=== PATIENT | female | born 1950 | race Caucasian/White ===

== ENCOUNTER 2016-03-18 14:55 | Inpatient (IN) | payer OTHER ==
[~2016-03-18] VITALS: Ht 152.4 cm; Wt 168.7 kg
[~2016-03-18 14:55] MED LIST: ALPRAZOLAM0.5 M4 PO; BABY ASPIRIN CH81 MG PO; CEPHALEXIN500 M3 PO; DILTIAZEM ER120 M2 PO; ELIQUIS5 M1 PO; FUROSEMIDE10 MG/1 M1 IV; FUROSEMIDE20 MG PO; HYDROCODON-ACE1 EAC1 PO; LASIX80 M1 PO; LASIX80 MG PO; LOPRESSOR 12.12.5 MG PO; METOLAZONE2.5 M1 PO; METOPROLOL TART50 M1 PO; MYCOSTATIN POWD15 GM TOP; POTASSIUM CHLO20 ME2 PO; PREDNISONE20 M1 PO; SENNA-TIME S T1 EACH PO; SPIRIVA1 PUF INH; SULFAMETH/TRIME1 TA2 PO; TUDORZA PRESS400 MCG INH; VENTOLIN1 PUF INH
--- NOTE | 2016-03-18 15:09 | ED DYSPNEA/ASTHMA COMPLAINT ---
History of Present Illness General Chief Complaint: Dyspnea (COPD, CHF, Other) Stated Complaint: SOB Source: patient, old records Exam Limitations: no limitations Vital Signs & Intake/Output Vital Signs & Intake/Output Vital Signs Date Time Temp Pulse Resp B/P Pulse O2 O2 Flow FiO2 Ox Delivery Rate 03/18 1716 98.6 100 20 163/78 96 Nasal 2.0L Cannula 03/18 1602 97 Nasal 2.0L Cannula 03/18 1547 98 Nasal 2.0L Cannula 03/18 1502 119 26 147/79 97 Nasal 3.5L Cannula 03/18 1457 98.1 112 22 136/101 96 Nasal 4.0L Cannula Allergies Coded Allergies: lisinopril (ABDOMINAL CRAMPING 01/25/16) oxycodone (From Percocet) (NAUSEA 01/25/16) Reconcile Medications Aclidinium Moody (Tudorza Pressair) 400 MCG/ACTUATION AER.POW.BA 1 PUFF INH BID COPD (Reported) Albuterol Sulfate (Ventolin) 1 UNIT PUF 2 PUF INH Q4 PRN WHEEZING Alprazolam 0.5 MG TABLET 1 TAB PO TIDPRN ANXIETY (Reported) Apixaban (Eliquis) 5 MG TABLET 5 MG PO BID afib Diltiazem Cd (Diltiazem ER) 120 MG CAP.ER.DEG 120 MG PO DAILY afib Furosemide 10 MG/ML VIAL 8 ML IV DAILY PRN Fluid retention Please give PRN ONLY for excessive weight gain from fluid retention or reduced O2 saturation. Clarify with commodity manager Dr. Hernadez before giving dose. Furosemide (Lasix) 80 MG TABLET 1 TAB PO BID heart Hydrocodone/Acetaminophen (Hydrocodon-Acetaminophn 10-325) 10 MG-325 MG TABLET 1 TAB PO TIDPRN PAIN (Reported) Metolazone 2.5 MG TABLET 1 TAB PO DAILY DIURETIC (Reported) Metoprolol Tartrate 50 MG TABLET 100 MG PO BID afib Potassium Chloride 20 MEQ TAB.ER.PRT 1 TAB PO BID SUPPLEMENT (Reported) Prednisone 20 MG TABLET 1 TAB PO BID RASH (Reported) Triage Nurses Notes Reviewed? yes Onset: Gradual Duration: day(s): (5) Timing: recent history Severity: severe Activities at Onset: none Prior Episodes/Possible Cause: occasional episodes Modifying Factors: Improves With: immobilization. HPI: Patient is a 65-year-old female with history of CHF, COPD, hypertension presenting to the emergency department with chief complaint of increasing shortness of breath at the getting worse the past 5 days. She was recently discharged from the hospital approximately 2 weeks ago when she was admitted for CHF exacerbation. She reports that she receives IV Lasix at home from her visiting nurse. Last dose was 80 mg IV Lasix on Thursday which did not help her shortness of breath. Patient reports that she gets shortness of breath even with the smallest amount of exertion. Denies abdominal pain. She also reports approximately 40 pound weight gain since discharge 2 weeks ago. Denies any coughing. She reports that she had an episode of the sweats prior to arrival. Denies any headaches or visual changes. The other night after taking IV Lasix she had a difficult time getting up and down from the bathroom because she does not have a Roth catheter in. Denies any urinary frequency or urgency or dysuria other than the fact that she urinates more often after taking Lasix. (KEAGAN KAUR) Past History Travel History Traveled to [place] past 21 day No Medical History Any Pertinent Medical History? 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 No (KEAGAN KAUR) Review of Systems Review of Systems Constitutional: Reports: malaise. Comments Review of systems: See HPI, All other systems negative. Constitutional, no weight loss HEENT: No visual changes no sore throat no congestion Cardiovascular: No chest pain ,palpitation Skin, no jaundice no rashes Respiratory: No cough sputum or hemoptysis GI: No nausea no vomiting : No dysuria No hematuria Muscle skeletal: no back pain, no neck pain, Neurologic: No numbness no confusion, no headache Psych: No stress anxiety or depression,. Heme/endocrine: No bruising no bleeding no polyuria or polydipsia Immunology: No splenectomy or history of AIDS (KEAGAN KAUR) Physical Exam Physical Exam General Appearance: alert, awake, comfortable, obese Respiratory: MILD DISTRESS, DIMINISHED LUNG SOUNDS BILATERALLY Comments: Well-developed well-nourished person in no acute distress HEENT: Pupils equally round and reactive to light and accommodation. Nose is atraumatic. Neck: Normal inspection Back: Nontender, no CVA tenderness. Full range of motion Cardiovascular: Regular rate and rhythms no murmurs rubs or gallops, normal JVP Respiratory: Chest nontender. No respiratory distress.crackles at the bases bilaterally, diffuse wheezing. Abdomen: Soft, obese, nontender, mildly distended on the left side of the abdomen, no appreciable organomegaly. Normal bowel sounds. No ascites Extremity: Largely edematous in the lower extremity bilaterally, no calf tenderness to palpation. Neuro: Alert oriented x3 Skin: No appreciable rash on exposed skin, skin is warm and dry. Psych: Mood and affect is normal, memory and judgment is normal. Core Measures ACS in differential dx? Yes Severe Sepsis Present: No Septic Shock Present: No (KEAGAN KAUR) Progress Differential Diagnosis: acs, PNEUMONIA, BRONCHITIS, chf, copd EXACERBATION, FLUID OVERLOAD Plan of Care: Orders Procedure Date/time Status Regular Diet 03/19 B Active Patient Data 03/18 1732 Active OXYGEN SETUP (GEN) 03/18 1631 Active Saline Lock 03/18 1631 Active Admit to inpatient 03/18 1631 Active Vital Signs 03/18 1631 Active Activity/Ambulation 03/18 1631 Active Code Status 03/18 1631 Active Roth, Insertion/Removal/Asses 03/18 1526 Active CULTURE,URINE 03/18 1526 Active Telemetry/Motorcycle Subassembly Repairer 03/18 1502 Active TROPONIN LEVEL 03/18 1502 Complete COMPREHENSIVE METABOLIC PANEL 03/18 1502 Complete CBC WITHOUT DIFFERENTIAL 03/18 1502 Complete B-TYPE NATRIURETIC PEP (BNP) 03/18 1502 Complete EKG 03/18 1500 Active Laboratory Tests 03/18/16 1512: Anion Gap 12, Estimated GFR > 60, BUN/Creatinine Ratio 26.7 H, Glucose 170 H, Calcium 9.4, Total Bilirubin 0.8, AST 23, ALT 54 H, Alkaline Phosphatase 78, Troponin I 0.02, Zet-A-Pujciwphioe Pept 2500 H, Total Protein 7.0, Albumin 4.0, Globulin 3.0, Albumin/Globulin Ratio 1.3, CBC w Diff MAN DIFF ORDERED, RBC 5.18, MCV 80.8 L, MCH 26.3 L, RDW 20.1 H, MPV 7.9, Gran % 89.2 H, Lymphocytes % 6.1 L, Monocytes % 4.2, Eosinophils % 0.3, Basophils % 0.2, Absolute Granulocytes 14.5 H, Absolute Lymphocytes 1.0 L, Absolute Monocytes 0.7 H, Absolute Eosinophils 0, Absolute Basophils 0, Platelet Estimate VERIFIED BY SMEAR, Anisocytosis 1+, PUBS MCHC 32.6 L Microbiology 03/18 1545 URINE ROUT: Urine Culture - RECD Diagnostic Imaging: Viewed by Me: Radiology Read. Discussed w/RAD: Radiology Read. Radiology Impression: PATIENT: AUDREY BROOKE PRESENT AGE: 65 PATIENT ACCOUNT NO: [id number] : 51 LOCATION: [facility] ORDERING PHYSICIAN: KEAGAN BLACKWOOD SERVICE DATE: 03/18/16 EXAM TYPE: RAD - XRY-PORTABLE CHEST XRAY EXAMINATION: XR PORTABLE CHEST CLINICAL INFORMATION: Shortness of breath. COMPARISON: Chest x-ray 03/03/2016. TECHNIQUE: Portable view of the chest was obtained. FINDINGS: Single AP view of the chest demonstrates pulmonary hypoinflation. In comparison to the prior examination, there has been interval development of patchy airspace opacities within the right hilar region as well as the right lung base. This could atelectasis versus reflect infection in the appropriate clinical setting versus aspiration pneumonitis. Cardiac mediastinal contours are stable and there is stable prominence of the cardiac silhouette with mild central venous congestion. No overt pulmonary edema. No pneumothoraces. Blunting of the left costophrenic angle could reflect a small left-sided pleural effusion with associated atelectasis. Superimposed infection is not excluded. IMPRESSION: Interval development of patchy airspace opacities within the right hilar region as well as right lung base. This finding is nonspecific but could reflect atelectasis given low lung volumes, aspiration pneumonitis versus infection in the appropriate clinical setting. Consider correlation with PA and lateral chest x- ray. Initial ED EKG: ATRIAL FIBRILLATION, 108 BPM Prior EKG: unchanged Comments: 03/18/2016 3:13:41 PM on arrival patient in mild respiratory distress, requiring supplemental oxygen. Lungs are significantly diminished with audible crackles at the bases and wheezing throughout. Patient is afebrile. 03/18/2016 4:04:18 PM patient informed of all lab results. Patient was given IV Lasix 80 mg. Patient will likely be admitted for fluid overload. BNP is elevated. Patient requiring several oxygen which is new for this patient. (KEAGAN KAUR) Departure Departure Time of Disposition: 1604 Disposition: STILL A PATIENT Condition: Stable Clinical Impression Primary Impression: Fluid overload Qualifiers: Hypervolemia type: unspecified Qualified Code: E87.70 - Fluid overload, unspecified Secondary Impressions: Congestive heart failure Qualifiers: Congestive heart failure type: unspecified congestive heart failure type Congestive heart failure chronicity: acute on chronic Qualified Code: I50.9 - Heart failure, unspecified Referrals: NELLIE AMBROSE MD (PCP/Family) Departure Forms: Customer Survey General Discharge Information Admission Note Spoke With: KADEEM LOPEZ MD Documentation of Exam: Documentation of any treatments & extenuating circumstances including Concerns Regarding Discharge (functional status, medication knowledge or non-compliance, living conditions, etc.) that warrant an admission rather than observation: Patient requiring supplemental oxygen which is new for this patient, IV Lasix, Roth catheter for monitoring I's and O's, cardiology consultation, discharge at this time would be medically harmful. (KEAGAN KAUR) PA/MOTOR DRIVER Co-Sign Statement Statement: ED Attending supervision documentation- x I saw and evaluated the patient. I have also reviewed all the pertinent lab results and diagnostic results. I agree with the findings and the plan of care as documented in the PA's/MOTOR DRIVER's documentation. [] I have reviewed the ED Record and agree with the PA's/MOTOR DRIVER's documentation. [] Additions or exceptions (if any) to the PAs/MOTOR DRIVER's note and plan are summarized below: [] (ALEJANDRA ALLISON MD) Critical Care Note Critical Care Note Critical Care Time: 30-74 min (KEAGAN KAUR)
--- NOTE | 2016-03-18 15:11 | NUR ---
65 YO FEMALE BIBA FROM HOME. PT STATES HER VISING NURSE CAME OVER TODAY TO ADMINISTER HER IV LASIX AND SHE WAS C/O SOB WITH A WEIGHT GAIN FROM 370-409LBS IN 2 DAYS. PT STATES SHE HAS BEEN HAVING DIFFICULTY AT HOME GETTING UP TO GO TO THE BATHROOM. PT MORBIDLY OBESE, PT ARRIVES ON VENTI MASK. SATS AT THIS TIME98% ON 4L NASAL CANNULA. PT DENIES PAIN ANYWHERE. PT NOTED WITH 2 OPEN SORES ON ABD, PER PT THEY ARE FROM SCRATCHING.
--- NOTE | 2016-03-18 15:14 | NUR ---
XRAY AT BEDSIDE
--- NOTE | 2016-03-18 15:23 | NUR ---
MERCED HOLLOWAY IN FOR AALIYAH
[2016-03-18 15:26] LABS: ABSOLUTE BASOPHIL COUNT 0 /CUMM (0.0-0.2); ABSOLUTE EOSINOPHIL COUNT 0 /CUMM (0.0-0.7); ABSOLUTE GRANULOCYTE CT 14.5 /CUMM (1.4-6.5); ABSOLUTE MONOCYTE COUNT 0.7 /CUMM (0.10-0.60); BASOPHIL % 0.2 % (0.0-2.0); EOSINOPHIL % 0.3 % (0-5); GRANULOCYTE % 89.2 % (42.2-75.2); HEMATOCRIT 41.8 % (37-47); MEAN CORPUSCULAR HGB 26.3 PG (27.0-31.0); MEAN CORPUSCULAR HGB CONC 32.6 G/DL (33.0-37.0); MEAN CORPUSCULAR VOLUME 80.8 FL (81.0-99.0); MEAN PLATELET VOLUME 7.9 FL (7.4-10.4); PLATELET COUNT 298 /CUMM (130-400); RBC DISTRIBUTION WIDTH 20.1 % (11.5-14.5); RED BLOOD CELL CT 5.18 /CUMM (4.20-5.40); WHITE BLOOD CELL COUNT 16.3 /CUMM (4.8-10.8)
--- NOTE | 2016-03-18 15:46 | NUR ---
VILCHIS PLACED PER ORDER AT THIS TIME. PT MEDICATED WITH 80MG IV LASIX AT THIS TIME PER EMAR. RESP PAGED FOR TREAMTNET.
--- NOTE | 2016-03-18 15:48 | NUR ---
PTS SKIN IN SANDY AREA NOTED TO BE VERY RED. NO OPEN AREAS NOTED. PT STATES SKIN IS VERY PAINFUL TO SANDY AREA, PT STATES SHE TRIES TO CLEAN HERSELF THE BEST SHE CAN BUT IT IS VERY DIFFICULT FOR HER TO DO.
--- NOTE | 2016-03-18 15:51 | RADIOLOGY REPORT ---
EXAMINATION: XR PORTABLE CHEST CLINICAL INFORMATION: Shortness of breath. COMPARISON: Chest x-ray 03/03/2016. TECHNIQUE: Portable view of the chest was obtained. FINDINGS: Single AP view of the chest demonstrates pulmonary hypoinflation. In comparison to the prior examination, there has been interval development of patchy airspace opacities within the right hilar region as well as the right lung base. This could atelectasis versus reflect infection in the appropriate clinical setting versus aspiration pneumonitis. Cardiac mediastinal contours are stable and there is stable prominence of the cardiac silhouette with mild central venous congestion. No overt pulmonary edema. No pneumothoraces. Blunting of the left costophrenic angle could reflect a small left-sided pleural effusion with associated atelectasis. Superimposed infection is not excluded. IMPRESSION: Interval development of patchy airspace opacities within the right hilar region as well as right lung base. This finding is nonspecific but could reflect atelectasis given low lung volumes, aspiration pneumonitis versus infection in the appropriate clinical setting. Consider correlation with PA and lateral chest x-ray.
--- NOTE | 2016-03-18 16:05 | NUR ---
RESP AT BEDSIDE FOR TREATMENT A THTIS TIME
--- NOTE | 2016-03-18 16:22 | NUR ---
PT TAKEN OFF 02 AT THIS TIME TO SEE HOW SATS ARE. BREATHING TREATMENT COMPLETE.
--- NOTE | 2016-03-18 17:02 | NUR ---
PT NOTED TO HAVE INCREASED IN SOB WIHTOUT OXYGEN ON, PLACED BACK ON 2L NASAL CANNULA. PA AWARE
--- NOTE | 2016-03-18 17:43 | NUR ---
DR LOPEZ AT BEDSIDE
--- NOTE | 2016-03-18 17:56 | History & Physical ---
LINDA LEONE,[facility] 03/18/16 6965: General Information and HPI MD Statement: I have seen and personally examined AUDREY LESTER and documented this H&P. The patient is a 65 year old F who presented with a patient stated chief complaint of Dyspnea and dyspnea on Exertion. Source of Information: patient, family, old records Exam Limitations: physical impairment History of Present Illness: Ms Lester is 65 y/o morbidly obese female with h/o HTN, chronic systolic CHF, COPD, obesity hypoventilation syndrome, Afib on eliquis, psoriasis on prednisone , CKD stage 3A, who presented on 03/18/2015, complaining of dyspnea and dyspnea on exertion. The patient states that her symptoms began last 03/10/2016 and subsequently got worse. The patient did receive 80 mg of IV Lasix on Thursday , 03/14/2016 however has only progressively got worse. She reports a 40 pound weight gain since being discharged from [facility] approximately 2 weeks ago. Patient states that although she has good medication compliance she feels that her diuretics have not been responsive. In addition to the above the patient also reports 10 out of 10 leg pain. Pain is more prevalent on the left lower extremity, owing to previous surgery that the patient had. The patient denies any changes to her diet, denies lack of medication compliance, or questionable viral exposure which may have predisposed her to CHF exacerbation and an increase in hypervolemia. The patient denies any fever, chills, nausea, vomiting. Allergies/Medications Allergies: Coded Allergies: lisinopril (ABDOMINAL CRAMPING 01/25/16) oxycodone (From Percocet) (NAUSEA 01/25/16) Home Med list Aclidinium [place] (Tudorza Pressair) 400 MCG/ACTUATION AER.POW.BA 1 PUFF INH BID COPD (Reported) Albuterol Sulfate (Ventolin) 1 UNIT PUF 2 PUF INH Q4 PRN WHEEZING Alprazolam 0.5 MG TABLET 1 TAB PO TIDPRN ANXIETY (Reported) Apixaban (Eliquis) 5 MG TABLET 5 MG PO BID afib Diltiazem Cd (Diltiazem ER) 120 MG CAP.ER.DEG 120 MG PO DAILY afib Furosemide 10 MG/ML VIAL 8 ML IV DAILY PRN Fluid retention Please give PRN ONLY for excessive weight gain from fluid retention or reduced O2 saturation. Clarify with residence supervisor Dr. Hernadez before giving dose. Furosemide (Lasix) 80 MG TABLET 1 TAB PO BID heart Reason to Stop at ADM: IV Hydrocodone/Acetaminophen (Hydrocodon-Acetaminophn 10-325) 10 MG-325 MG TABLET 1 TAB PO TIDPRN PAIN (Reported) Metolazone 2.5 MG TABLET 1 TAB PO DAILY DIURETIC (Reported) Metoprolol Tartrate 50 MG TABLET 100 MG PO BID afib Potassium Chloride 20 MEQ TAB.ER.PRT 1 TAB PO BID SUPPLEMENT (Reported) Prednisone 20 MG TABLET 1 TAB PO BID RASH (Reported) Compliance With Home Meds: GOOD Past History Travel History Traveled to [place] past 21 day No Medical History Neurological: NONE EENT: NONE Cardiovascular: AFIB, CHF, hypertension Respiratory: COPD Gastrointestinal: NONE Hepatic: NONE 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 Home Who Do You Live With? spouse Services at Home: None Primary Language: Luxembourgish ETOH Use: denies use Illicit Drug Use: denies illicit drug use Functional Ability ADLs Independent: dressing, eating, toileting, bathing. IADLs Independent: shopping, housework, finances, food prep, telephone, transportation , medication admin. Employment History Employment Employed Profession/Employer [employer] Review of Systems Review of Systems Constitutional: Denies: fever. Cardiovascular: Denies: chest pain, edema, orthopena, palpitations. Respiratory: Reports: wheezing. Denies: cough, hemoptysis, orthopnea, short of breath, sputum production. GI: Denies: abdominal pain, bloating, constipation, diarrhea, distention, bowel incontinence, nausea, changes in stool, vomiting. Genitourinary: Reports: see HPI. Denies: discharge, dysuria, frequency, hematuria. Musculoskeletal: Reports: muscle pain. Skin: Reports: change in skin color. Exam & Diagnostic Data Last 24 Hrs of Vital Signs/I&O Vital Signs Date Time Temp Pulse Resp B/P Pulse O2 O2 Flow FiO2 Ox Delivery Rate 03/18 2024 97.6 106 20 132/70 94 Nasal 2.0L Cannula 03/18 2023 96 Nasal 2.0L Cannula 03/18 1716 98.6 100 20 163/78 96 Nasal 2.0L Cannula 03/18 1602 97 Nasal 2.0L Cannula 03/18 1547 98 Nasal 2.0L Cannula 03/18 1502 119 26 147/79 97 Nasal 3.5L Cannula 03/18 1457 98.1 112 22 136/101 96 Nasal 4.0L Cannula Intake & Output 03/18 1600 03/18 0800 03/18 0000 Intake Total Output Total Balance Patient 185.519 kg Weight Physical Exam General Appearance Alert, Oriented X3, Cooperative, No Acute Distress Cardiovascular Normal S1, Normal S2, Irregular Rate and Rhythm Lungs Diffuse Expiratory Wheezing Abdomen Normal Bowel Sounds, Soft, No Tenderness Neurological Normal Speech Extremities Edema 5+, Left Upper Thigh: Tender, Erythmatous, Last 24 Hrs of Labs/Stephen: Laboratory Tests 03/18/16 1512: Anion Gap 12, Estimated GFR > 60, BUN/Creatinine Ratio 26.7 H, Glucose 170 H, Calcium 9.4, Total Bilirubin 0.8, AST 23, ALT 54 H, Alkaline Phosphatase 78, Troponin I 0.02, Ajt-N-Zcwlxxkfczx Pept 2500 H, Total Protein 7.0, Albumin 4.0, Globulin 3.0, Albumin/Globulin Ratio 1.3, CBC w Diff MAN DIFF ORDERED, RBC 5.18, MCV 80.8 L, MCH 26.3 L, RDW 20.1 H, MPV 7.9, Gran % 89.2 H, Lymphocytes % 6.1 L, Monocytes % 4.2, Eosinophils % 0.3, Basophils % 0.2, Absolute Granulocytes 14.5 H, Absolute Lymphocytes 1.0 L, Absolute Monocytes 0.7 H, Absolute Eosinophils 0, Absolute Basophils 0, Platelet Estimate VERIFIED BY SMEAR, Anisocytosis 1+, PUBS MCHC 32.6 L Microbiology 03/18 1545 URINE ROUT: Urine Culture - RECD Diagnostic Data CXR Results SERVICE DATE: 03/18/16-1502 EXAM TYPE: RAD - XRY-PORTABLE CHEST XRAY EXAMINATION: XR PORTABLE CHEST CLINICAL INFORMATION: Shortness of breath. COMPARISON: Chest x-ray 03/03/2016. TECHNIQUE: Portable view of the chest was obtained. FINDINGS: Single AP view of the chest demonstrates pulmonary hypoinflation. In comparison to the prior examination, there has been interval development of patchy airspace opacities within the right hilar region as well as the right lung base. This could atelectasis versus reflect infection in the appropriate clinical setting versus aspiration pneumonitis. Cardiac mediastinal contours are stable and there is stable prominence of the cardiac silhouette with mild central venous congestion. No overt pulmonary edema. No pneumothoraces. Blunting of the left costophrenic angle could reflect a small left-sided pleural effusion with associated atelectasis. Superimposed infection is not excluded. IMPRESSION: Interval development of patchy airspace opacities within the right hilar region as well as right lung base. This finding is nonspecific but could reflect atelectasis given low lung volumes, aspiration pneumonitis versus infection in the appropriate clinical setting. Consider correlation with PA and lateral chest x-ray. DICTATED BY: ELENA TEJADA MD Assessment/Plan Assessment: This is a 65-year-old lady with past medical history of hypertension, chronic systolic CHF, COPD, obesity hypoventilation syndrome, atrial fibrillation on Eliquis, Psoriasis, seek ED stage IIIa who presented to the [facility] emergency department with worsening dyspnea.CHF versus COPD exacerbation. Patient is limited in terms of her extra care given the fact that she is only able to get around in an ambulance which causes a significant amount of impedance on her [place] medical care. #Acute CHF exacerbation in the setting of our atrial fibrillation with rapid ventricular rate Admit the patient to telemetry floor for continuous monitoring. Patient will benefit from an immediate dose of IV Lasix 80 mg. May benefit from IV [place]. Conversion 1mmg Lasix Serial troponins and EKG Cardiology consult in a.m. BEP in a.m. Daily weights and strict I&O's #COPD exacerbation leading to hypoxic respiratory failure Pulmonology consult in a.m. IV Solu-Medrol 40 mg twice a day. TRC nebs. Maintain saturations above 92%. Patient states she is not on home oxygen however would benefit from supplemental oxygen via nasal cannula while admitted. #Obesity hypoventilation syndrome. BiPAP at night. Patient might be eligible for polysomnography as an outpatient. #Questionable worsening cellulitis. Patient did have an elevated white count (versus due to chronic steroid use) which could be attributed to cellulitis. Left Lowe Extremity was tender, erythematous and sensitive to touch. Given her body habitus it was difficult to do a complete exam however she denies any skin breakdown especially on any pressure points. Watch off antibiotics for now ID consult in a.m. CBC in a.m. Blood cultures in a.m. Prior to antibiotic administration #Atrial fibrillation with RVR Cardiology consult with Dr. Hernadez placed in a.m. Continue patient on Eliquis #Chronic leg venous stasis and edema. PT consult in a.m. Leg elevation #Diet Heart healthy #DVT prophylaxis Patient is on Eliquis #Code Full code As Ranked By This Provider Problem List: 1. Fluid overload Qualifiers Hypervolemia type: unspecified Qualified Code: E87.70 - Fluid overload, unspecified 2. Skin rash 3. Afib 4. CHF exacerbation 5. Morbid obesity 6. COPD (chronic obstructive pulmonary disease) 7. Cellulitis 8. Anasarca Core Measures/Miscellaneous Acute Coronary Syndrome ACS Diagnosis: No Cerebrovascular Accident CVA/TIA Diagnosis: No Congestive Heart Failure CHF Diagnosis: No Venous Thromboembolism VTE Risk Factors: Age > 40 VTE Prophylaxis Ordered Inpt: [facility]- [facility] prophylaxis d/t: No contraindications No VTE Pharm Prophylaxis d/t: No contraindications VTE Diagnosis: No VTE Type: NONE VTE Confirmed by (Test): NONE Severe Sepsis Severe Sepsis Present: No Septic Shock Septic Shock Present: No Miscellaneous Documentation Attending Case Discussed With: KADEEM LOPEZ MD Primary Care Physician: ENLLIE AMBROSE MD Patient sees these Specialists NA Level of Patient Care: Telemetry KADEEM LOPEZ MD 03/18/16 2205: Assessment/Plan As Ranked By This Provider Problem List: 1. Hypertension 2. Obesity 3. Leukocytosis 4. CHF (congestive heart failure) Qualifiers Congestive heart failure type: unspecified congestive heart failure type Congestive heart failure chronicity: acute on chronic Qualified Code: I50.9 - Heart failure, unspecified 5. Anasarca 6. COPD (chronic obstructive pulmonary disease) 7. CHF exacerbation 8. Afib 9. Fluid overload Qualifiers Hypervolemia type: unspecified Qualified Code: E87.70 - Fluid overload, unspecified Attending Review Statement Attending Statement Attending MD Statement: examined this patient, discuss w/resident/PA/[employer], agreed w/resident/PA/[employer], discussed with family, reviewed EMR data (avail), discussed with nursing, reviewed images, amended to note Attending Assessment/Plan: The patient is a 65 yo female with h/o HTN, chronic atrial fibrillation, COPD, and CHF (grade 2 diastolic and possible systolic- last ECHO suboptimal), chronic lymphedema, and morbid obesity who presented on the day of admission in the ED with 40 lb weight gain since last admission. Majority of weight gain has been since 03/10. She has been compliant with diet, sodium restriction, and medications. Denies any chest pain. Notes some increased dyspnea. She is unable to leave her home and has had VNA and did receive a dose of IV furosemide on . She notes that she is not responding to po diuretics (Metolazone had been added to Furosemide). She has been taking Cardizem CD. HR on arrival in ED was 86-120 range. Patient states bed scale weight is 406 lbs. Physical Exam: VS: T 98.1, P 1`12, R 22, BP 136/102-132/70, R 20, PO 94% 2L HEENT: eyes- PERRLA, EOMI josh- moist mucosa Neck: no JVD, adenopathy or bruits Chest: diminished BS with minimal expiratory wheeze Cor: tachy, irreg, nl S1, S2 w/o murm Abd: BS+, distended (abd wall edema) w/o tenderness Ext: bilat significant 3+ edema (left > right) with focal patches of tenderness and erythema, slight discharge Neuro: non-focal Labs/Tests- as above Impression/Plan: #Fluid Overload- patient with significant increased weight gain/fluid buildup since last admission. Has had several recent admissions for same. Does diurese in hospital on IV furosemide, however does not respond well to oral drugs. Also rapid atrial fibrillation is most likely contributing to fluid buildup. ? right heart failure with COPD- unclear if evaluated for obesity hypoventilation/SARITA. Plan: Admit to telemetry floor- monitor HR (afib as below). IV diuretics - would suggest change to IV Bumex and once diuresed use po Bumex (tends to be absorbed better in patients than furosemide). Continue Metolazone. Follow daily weights/I/O's. #CHF-Acute & Chronic- Diastolic and Systolic- reviewed last several ECHO reports. Last report indicates poor acoustic window and rapid HR precluding accurate EF (45%) with possible focal WMA inferolateral (most likely artifact). Other ECHO shoiws EF 60%. There is evidence of stage 2 diastolic dysfunction. Acute CHF most likely combination of systolic (due to decreased EF related to rapid HR) along with diastolic dysfunction. The patient has no ischemic EKG changes or symptoms. Plan: Diuresis as above. Cardiology consult Dr. Hernadez. #Chronic Atrial Fibrillation- with rapid VR. Rapid HR most likely resulting in decreased cardiac output. Has been on Cardizem CD. Plan: In this patient would consider use of Digoxin for HR. Will need to discuss with Cardiology. #COPD/Pulmonary- the patient does have some mild wheezing, however doubt COPD exacerbation. Would avoid IV steroids at present as this may increase fluid retention, etc. Concern regarding obesity hypoventilation/SARITA. Not sure if patient has been tested for these. Plan: Pulmonary consult- Dr. Stout. Aerosol Rx/Bipap at night. #Chronic Lymphedema LE with possible Cellulitis- has mild elevated WBC. No fever. Plan: Wound care consult- consider Unna Boots/Wraps ID evaluation- Blood Cultures, follow-up WBC. RILEY RILEY MD 03/18/164: Resident Review Statement Resident Statement: examined this patient, discussed with international accounting manager, agreed with international accounting manager, reviewed EMR data (avail), reviewed images Other Findings: 65 year old morbidly obese woman, with a past medical history of hypertension, chronic diastolic stage 2 and systolic congestive heart failure, COPD, morbid obesity, obesity hypoventilation syndrome, A fib on Eliquis, psoriasis on prednisone, CKD stage III, last admitted to [facility] on 03/02/2016, discharged on 03/07/16 for acute exacerbation of diastolic heart failure, presented with shortness of breath, increased leg edema extending up to the lower abdomen and weight gain of 40 pounds since discharge. Was admitted to [facility] on Jan 2016 prior to last admission with new onset Afib , cellulitis and CHF. She denied use of salt, reports restricted water intake, and compliance with medications. Since discharge she had 3 nurse visits, with the last on Thursday that is 4 days prior to admission, where she required one dose of IV Lasix 80 mg by the visiting nurse. Her metolazone dose was increased by Dr. Grey from Q48 to daily a month ago. She denies chest pain, palpitations, but reports wheezing. Used her emergency inhaler twice for temporary relief. Denies cough, sputum, fever, chills, sick contacts. Vitals: Temp 98.1, HR 112, [place] 163/78, RR 20, oxygen sats 96% on 4 liters of oxygen by NE, not on home oxygen. On Exam: Morbidly obese, mild distress JVD unable to appreciate due to body habitus Diffuse bilateral wheezing, crackles difficult to appreciate as she had already received IV Lasix in ED and due to body habitus S1 S2 irregularly irregular, no murmur Abd soft, non-distended but with diffuse lower abdominal swelling and erythema, no warmth. 2 well circumscribed wound on the abdomen due to scratching. Fungal infection in folds, with moist, foul smelling, erythematous, soggy, skin over the intertriginous areas of the abdomen and legs. Chronic b/l LE edema and stasis dermatitis. Edema, with tense distended skin over the thighs, left > right, tender, pitting, warm. Peripheral pulses palpable WBC 16.3, no bands, BUN/Cr 24/0.9, trop < 0.01, proBNP 2500, AST/ALT 23/54, Glu 170, K 5.3 CXR Interval development of patchy airspace opacities within the right hilar region as well as right lung base. EKG: Afib. @108, no ST-[facility] changes Echo (Jan 2016): EF 40-45%. Assessment: 1. Acute on chronic diastolic and systolic congestive heart failure: 2. Acute hypoxic respiratory failure secondary to COPD exacerbation 3. Anasarca 4. ?Cellulitis 5. Fungal infection in the intertriginous areas 6. Leukocytosis 7. A fib with rapid ventricular rate 8. Hyperkalemia 9. Morbid obesity 10. Obesity Hypoventilation syndrome 1. Acute on Chronic diastolic and systolic congestive heart failure/Anasarca: Patient has been admitted for CHF exacerbation frequently to the hospital. She responds well to IV diuresis but with oral Lasix, and metalozone, despite increasing the dose, has failed treatment, likely secondary to sever anasarca and intestinal edema that decreases absorption. No evidence of ischemia. - Will start IV Lasix 80 mg Daily - Will also start IV Bumex 1 mg Daily that might benefit the patient - Daily weights - Strict I/Os - Trops and EKGs at 10 pm and 6 am - Has had an ECHO in Jan, may hold off on a repeat for now - Consult Dr. Daugherty 2. Acute hypoxic respiratory failure secondary to COPD exacerbation: History of COPD, not on home oxygen, now with hypoxia requiring 4 liters of oxygen in the ED, wheezing, required rescue inhalors twice at home - Will provide aggressive TRC nebs - Will hold of on Steroids for now as that may increase edema and also worsen infection, if any - Consult with Dr. Stout in am 4. ?Cellulitis: Patient has a history of cellulitis, now presents with leukocytosis and erythema of the legs and abdomen. Afebrile - Will hold off on ABx for now but she will likely benefit from an ID consult ? Necrotizing fasciitis vs recurrent cellulitis - leg elevation 5. Fungal infection in the intertriginous areas: Nystatin powder 6. Leukocytosis: ?Cellulitis vs ?panniculitis. - Less likely pneumonia. CXR shows nonspecific opacification, patient denies productive cough, no fever. Needs PA Lateral films. - Check urinalysis - ?steroid induced - Will monitor off ABx for now 7. A fib with rapid ventricular rate: rate 112 on admission in the setting of acute heart failure, likely compensatory response to fluid overload. Will hold Cardizem for now due to its negative ionotropic effects - Will aggressively diurese and monitor heart rate - Will restart Cardizem in am, no IV needed - c/w Eliquis - Patient is also on Metoprolol, for now will hold off as the patient has COPD. May restart after discussing with cardio and pulm 8. Hyperkalemia: Monitor for now, may reduce with diuresis 9. Morbid obesity: ?bariatric clinic/surgery 10. Obesity Hypoventilation syndrome: ?sleep study. Pulm evaluation 11. Psoriasis: c/w home dose of pred 12. CHF diet 13. Pain pathway 14. DVT PPx: On Eliquis 15. FULL CODE, not beyond 72 hours. After that withdraw life support. Case discussed with Dr. Lopez
--- NOTE | 2016-03-18 17:59 | NUR ---
BED ASSIGNMENT 183, BED NOT READY YET, WILL CALL
--- NOTE | 2016-03-18 18:11 | Admission Certification ---
Admission Certification Certification Statement - As attending physician, I certify that at the time of - admission, based on clinical presentation, severity of - symptoms, need for further diagnostic testing and - therapeutic interventions, and risk of adverse outcomes - without in-hospital treatment, in my clinical assessment, - this patient requires an acute hospital stay for a minimum - of two nights or longer. I have also considered psychsocial - factors such as support system, advanced age, financial - issues, cognitive issues, and failed out-patient treatments, - past re-admission history, safety of patient, and lack of - compliance as applicable. Specific rationale supporting this admission is: The patient presents with rapid atrial fibrillation, volume overload/anasarca- needs IV diuretic, oxygen, and telemetry monitoring, rate control. Cardiology consult.
--- NOTE | 2016-03-18 18:16 | NUR ---
PT CONTINUES TO REST ON STRETCHER, SATS REMAINS 97% ON 2L NC AT THIS TIME. PT STATES SHE IS FEELING SLIGHTLY BETTER. DENIES ANY PAIN AT THIS TIME.
--- NOTE | 2016-03-18 19:52 | NUR ---
REPORT GIVEN TO RIAN TAYLOR. TRANSPORT CALLED
[2016-03-18 20:25] VITALS: BP 132/70
[2016-03-18] MEDS ORDERED: LASIX80 M1 PO (20:29)
[2016-03-18 23:00] VITALS: BP 118/80
--- NOTE | 2016-03-19 07:20 | PN- Housestaff ---
Subjective Review of Systems Constitutional: Reports: see HPI. Objective Last 24 Hrs of Vital Signs/I&O Vital Signs Date Time Temp Pulse Resp B/P Pulse O2 O2 Flow FiO2 Ox Delivery Rate 03/18 2299 98.4 108 22 118/80 97 03/18 2201 Nasal 2.0L Cannula 03/18 2024 97.6 106 20 132/70 94 Nasal 2.0L Cannula 03/18 2023 96 Nasal 2.0L Cannula 03/18 171 98.6 100 20 163/78 96 Nasal 2.0L Cannula 03/18 1602 97 Nasal 2.0L Cannula 03/18 1547 98 Nasal 2.0L Cannula 03/18 1502 119 26 147/79 97 Nasal 3.5L Cannula 03/18 1457 98.1 112 22 136/101 96 Nasal 4.0L Cannula Intake & Output 03/19 0800 03/19 0000 03/18 1600 Intake Total 240 480 Output Total 1700 3100 Balance -1460 -2620 Intake, Oral 240 480 Number 0 Bowel Movements Output, Urine 1700 3100 Patient 186.88 kg 185.519 kg 185.519 kg Weight
[2016-03-19 08:07] VITALS: BP 120/60
[2016-03-19 08:16] LABS: ABSOLUTE BASOPHIL COUNT 0 /CUMM (0.0-0.2); ABSOLUTE EOSINOPHIL COUNT 0 /CUMM (0.0-0.7); ABSOLUTE GRANULOCYTE CT 12.4 /CUMM (1.4-6.5); ABSOLUTE LYMPH COUNT 0.9 /CUMM (1.2-3.4); ABSOLUTE MONOCYTE COUNT 0.5 /CUMM (0.10-0.60); BASOPHIL % 0 % (0.0-2.0); EOSINOPHIL % 0.1 % (0-5); HEMATOCRIT 40.8 % (37-47); MEAN CORPUSCULAR HGB 26.8 PG (27.0-31.0); MEAN CORPUSCULAR HGB CONC 33.2 G/DL (33.0-37.0); MEAN CORPUSCULAR VOLUME 80.7 FL (81.0-99.0); MEAN PLATELET VOLUME 7.8 FL (7.4-10.4); RBC DISTRIBUTION WIDTH 20.4 % (11.5-14.5); RED BLOOD CELL CT 5.06 /CUMM (4.20-5.40); WHITE BLOOD CELL COUNT 13.8 /CUMM (4.8-10.8)
[2016-03-19 09:15] LABS: PLATELET COUNT 256 /CUMM (130-400)
--- NOTE | 2016-03-19 09:34 | Cons- Cardiology ---
General Information and HPI Consulting Request Date of Consult: 03/19/16 Requested By: KADEEM LOPEZ MD Reason for Consult: Recurrent congestive heart failure and fluid overload in a morbidly obese female. Source of Information: patient, old records Exam Limitations: no limitations History of Present Illness: The patient is a 65-year-old female well known to me. She is severely morbidly obese. She has had recurrent admissions for congestive heart failure and most recently has developed persistent atrial fibrillation. Her atrial fibrillation has been somewhat difficult to control in terms of rate. She was just here a few weeks ago and went home with high dose oral Lasix and metalazone treatment and intermittent intravenous Lasix being given by [facility]. She actually got only one dose so far of IV Lasix, which she states did help. However she has been developing progressive anasarca and fluid overload despite the high dose diuretic treatment. Her last echocardiogram in January showed an ejection fraction of 40-45%. A previous echocardiogram showed ejection fraction 45-50%. She also has significant LVH and when she was in sinus rhythm had stage II diastolic dysfunction. The patient notes progressive weight gain and fluid accumulation especially in the abdomen since her last discharge. She has been compliant with medications. She has a great deal of difficulty getting around because of her weight and even getting out of bed to go to the bathroom is a struggle for her. Allergies/Medications Allergies: Coded Allergies: lisinopril (ABDOMINAL CRAMPING 01/25/16) oxycodone (From Percocet) (NAUSEA 01/25/16) Home Med List: Aclidinium Sadorus (Tudorza Pressair) 400 MCG/ACTUATION AER.POW.BA 1 PUFF INH BID COPD (Reported) Albuterol Sulfate (Ventolin) 1 UNIT PUF 2 PUF INH Q4 PRN WHEEZING Alprazolam 0.5 MG TABLET 1 TAB PO TIDPRN ANXIETY (Reported) Apixaban (Eliquis) 5 MG TABLET 5 MG PO BID afib Diltiazem Cd (Diltiazem ER) 120 MG CAP.ER.DEG 120 MG PO DAILY afib Furosemide 10 MG/ML VIAL 8 ML IV DAILY PRN Fluid retention Please give PRN ONLY for excessive weight gain from fluid retention or reduced O2 saturation. Clarify with claims adjuster crop Dr. Hernadez before giving dose. Furosemide (Lasix) 80 MG TABLET 1 TAB PO BID heart Reason to Stop at ADM: IV Hydrocodone/Acetaminophen (Hydrocodon-Acetaminophn 10-325) 10 MG-325 MG TABLET 1 TAB PO TIDPRN PAIN (Reported) Metolazone 2.5 MG TABLET 1 TAB PO DAILY DIURETIC (Reported) Metoprolol Tartrate 50 MG TABLET 100 MG PO BID afib Potassium Chloride 20 MEQ TAB.ER.PRT 1 TAB PO BID SUPPLEMENT (Reported) Prednisone 20 MG TABLET 1 TAB PO BID RASH (Reported) Current Medications: Current Medications Sig/Jackson Start time Last Medication Dose Route Stop Time Status Admin Acetaminophen 650 MG Q6P PRN 03/18 204 AC PO Acetaminophen/ 1 TAB Q8P PRN 03/18 2030 AC Hydrocodone Bitart PO Albuterol Sulfate 3 ML BID 03/18 2199 AC INH Albuterol Sulfate 3 ML ONCE ONE 03/18 1545 DC 03/18 INH 03/18 1546 1602 Alprazolam 0.5 MG TID PRN 03/18 1800 AC PO 03/25 1759 Apixaban 5 MG BID 03/18 2199 AC 03/18 PO 2212 Bumetanide 1 MG DAILY 03/18 2025 AC 03/18 IV 2212 Diltiazem HCl 120 MG DAILY 03/19 1000 CAN PO Diltiazem HCl 120 MG DAILY 03/19 1000 AC PO Furosemide 80 MG DAILY 03/19 1000 CAN IV Furosemide 0 .STK-MED ONE 03/18 1539 DC IV Furosemide 80 MG ONCE ONE 03/18 1530 DC 03/18 IV 03/18 1531 1546 Heparin Sodium 5,000 UNIT Q8 03/18 220 DC (Porcine) SC Ipratropium Sadorus 2.5 ML BID 03/18 220 AC INH Ipratropium Sadorus 2.5 ML ONCE ONE 03/18 1545 DC 03/18 INH 03/18 1546 1602 Metolazone 2.5 MG DAILY 03/19 1000 AC PO Metoprolol Tartrate 100 MG BID 03/19 1000 CAN PO Nystatin 1 CORBY TIDPRN PRN 03/18 224 AC TOP Oxycodone/ 2 TAB Q6P PRN 03/18 204 AC Acetaminophen PO Prednisone 20 MG BID 03/180 AC 03/18 PO 2212 Senna/Docusate Sodium 1 TAB AT BEDTIME PRN 03/18 204 AC PO Review of Systems Review of Systems: She has no other specific complaints in the review of systems at this time Past History Travel History Traveled to [place] past 21 day No Medical History Blood Transfusion Hx: No Neurological: NONE EENT: NONE Cardiovascular: AFIB, CHF, hypertension Respiratory: COPD Gastrointestinal: NONE Hepatic: NONE 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 Home Who Do You Live With? spouse Services at Home: Nursing Primary Language: Moldovan Smoking Status: Never Smoked ETOH Use: denies use Illicit Drug Use: denies illicit drug use Functional Ability ADLs Independent: dressing, eating, toileting, bathing. IADLs Independent: shopping, housework, finances, food prep, telephone, transportation , medication admin. Employment History Employment: Employed Profession/Employer [employer] Exam & Diagnostic Data Vital Signs and I&O Vital Signs Date Time Temp Pulse Resp B/P Pulse O2 O2 Flow FiO2 Ox Delivery Rate 03/19 08 98.3 97 20 120/60 96 Nasal 3.0L Cannula 03/18 2300 98.4 108 22 118/80 97 03/18 2202 Nasal 2.0L Cannula 03/18 2024 97.6 106 20 132/70 94 Nasal 2.0L Cannula 03/18 2023 96 Nasal 2.0L Cannula 03/18 171 98.6 100 20 163/78 96 Nasal 2.0L Cannula 03/18 1602 97 Nasal 2.0L Cannula 03/18 1547 98 Nasal 2.0L Cannula 03/18 1502 119 26 147/79 97 Nasal 3.5L Cannula 03/18 1457 98.1 112 22 136/101 96 Nasal 4.0L Cannula Intake & Output 03/19 1600 03/19 0800 03/19 0000 03/18 1600 03/18 0800 03/18 0000 Intake Total 240 480 Output Total 1700 3100 Balance -1460 -2620 Intake, Oral 240 480 Number 0 Bowel Movements Output, Urine 1700 3100 Patient 412 lb 409 lb 409 lb Weight Physical Exam: She is morbidly obese but awake and alert and pleasant and cooperative. HEENT exam is grossly normal Neck veins are difficult to assess Chest reveals decreased breath sounds bilaterally and some mild expiratory wheezing Heart reveals a regular rhythm, soft heart sounds, no murmurs Extremities reveal chronic edema and chronic skin changes Labs/Stephen Results: Laboratory Tests 03/19 03/18 0620 2215 Chemistry Sodium (137 - 145 mmol/L) 139 Potassium (3.5 - 5.1 mmol/L) 5.0 Chloride (98 - 107 mmol/L) 96 L Carbon Dioxide (22 - 30 mmol/L) 32 H Anion Gap (5 - 16) 12 BUN (7 - 17 mg/dL) 27 H Creatinine (0.5 - 1.0 mg/dL) 1.1 H Estimated GFR (>60 ml/min) 50 L BUN/Creatinine Ratio (7 - 25 %) 24.5 Troponin I (< 0.11 ng/ml) 0.03 0.02 Hematology CBC w Diff NO MAN DIFF REQ WBC (4.8 - 10.8 /CUMM) 13.8 H RBC (4.20 - 5.40 /CUMM) 5.06 Hgb (12.0 - 16.0 G/DL) 13.5 Hct (37 - 47 %) 40.8 MCV (81.0 - 99.0 FL) 80.7 L MCH (27.0 - 31.0 PG) 26.8 L RDW (11.5 - 14.5 %) 20.4 H Plt Count (130 - 400 /CUMM) 256 MPV (7.4 - 10.4 FL) 7.8 Gran % (42.2 - 75.2 %) 90.0 H Lymphocytes % (20.5 - 51.1 %) 6.6 L Monocytes % (1.7 - 9.3 %) 3.3 Eosinophils % (0 - 5 %) 0.1 Basophils % (0.0 - 2.0 %) 0 L Absolute Granulocytes (1.4 - 6.5 /CUMM) 12.4 H Absolute Lymphocytes (1.2 - 3.4 /CUMM) 0.9 L Absolute Monocytes (0.10 - 0.60 /CUMM) 0.5 Absolute Eosinophils (0.0 - 0.7 /CUMM) 0 Absolute Basophils (0.0 - 0.2 /CUMM) 0 PUBS MCHC (33.0 - 37.0 G/DL) 33.2 03/18 1512 Chemistry Sodium (137 - 145 mmol/L) 136 L Potassium (3.5 - 5.1 mmol/L) 5.3 H Chloride (98 - 107 mmol/L) 98 Carbon Dioxide (22 - 30 mmol/L) 25 Anion Gap (5 - 16) 12 BUN (7 - 17 mg/dL) 24 H Creatinine (0.5 - 1.0 mg/dL) 0.9 Estimated GFR (>60 ml/min) > 60 BUN/Creatinine Ratio (7 - 25 %) 26.7 H Glucose (65 - 99 mg/dL) 170 H Calcium (8.4 - 10.2 mg/dL) 9.4 Total Bilirubin (0.2 - 1.3 mg/dL) 0.8 AST (14 - 36 U/L) 23 ALT (9 - 52 U/L) 54 H Alkaline Phosphatase (<127 U/L) 78 Troponin I (< 0.11 ng/ml) 0.02 Ftt-N-Spklyfgiege Pept (<125 pg/mL) 2500 H Total Protein (6.3 - 8.2 g/dL) 7.0 Albumin (3.5 - 5.0 g/dL) 4.0 Globulin (1.9 - 4.2 gm/dL) 3.0 Albumin/Globulin Ratio (1.1 - 2.2 %) 1.3 Hematology CBC w Diff MAN DIFF ORDERED WBC (4.8 - 10.8 /CUMM) 16.3 H RBC (4.20 - 5.40 /CUMM) 5.18 Hgb (12.0 - 16.0 G/DL) 13.6 Hct (37 - 47 %) 41.8 MCV (81.0 - 99.0 FL) 80.8 L MCH (27.0 - 31.0 PG) 26.3 L RDW (11.5 - 14.5 %) 20.1 H Plt Count (130 - 400 /CUMM) 298 MPV (7.4 - 10.4 FL) 7.9 Gran % (42.2 - 75.2 %) 89.2 H Lymphocytes % (20.5 - 51.1 %) 6.1 L Monocytes % (1.7 - 9.3 %) 4.2 Eosinophils % (0 - 5 %) 0.3 Basophils % (0.0 - 2.0 %) 0.2 Absolute Granulocytes (1.4 - 6.5 /CUMM) 14.5 H Absolute Lymphocytes (1.2 - 3.4 /CUMM) 1.0 L Absolute Monocytes (0.10 - 0.60 /CUMM) 0.7 H Absolute Eosinophils (0.0 - 0.7 /CUMM) 0 Absolute Basophils (0.0 - 0.2 /CUMM) 0 Platelet Estimate (ADEQUATE) VERIFIED BY SMEAR Anisocytosis 1+ PUBS MCHC (33.0 - 37.0 G/DL) 32.6 L Diagnostic Data EKG Results EKG shows atrial fibrillation rate in the low 100s, low voltage, nonspecific T- wave changes CXR Results PATIENT: AUDREY BROOKE PRESENT AGE: 65 PATIENT ACCOUNT NO: [id number] : 51 LOCATION: [facility] ORDERING PHYSICIAN: KEAGAN BLACKWOOD SERVICE DATE: 03/18/16-150 EXAM TYPE: RAD - XRY-PORTABLE CHEST XRAY EXAMINATION: XR PORTABLE CHEST CLINICAL INFORMATION: Shortness of breath. COMPARISON: Chest x-ray 03/03/2016. TECHNIQUE: Portable view of the chest was obtained. FINDINGS: Single AP view of the chest demonstrates pulmonary hypoinflation. In comparison to the prior examination, there has been interval development of patchy airspace opacities within the right hilar region as well as the right lung base. This could atelectasis versus reflect infection in the appropriate clinical setting versus aspiration pneumonitis. Cardiac mediastinal contours are stable and there is stable prominence of the cardiac silhouette with mild central venous congestion. No overt pulmonary edema. No pneumothoraces. Blunting of the left costophrenic angle could reflect a small left-sided pleural effusion with associated atelectasis. Superimposed infection is not excluded. IMPRESSION: Interval development of patchy airspace opacities within the right hilar region as well as right lung base. This finding is nonspecific but could reflect atelectasis given low lung volumes, aspiration pneumonitis versus infection in the appropriate clinical setting. Consider correlation with PA and lateral chest x-ray. DICTATED BY: ELENA TEJADA MD DATE/TIME DICTATED:03/18/161543 COMMERCIAL CREDIT HEAD:BRYON DATE/TIME TRANSCRIBED:03/18/161543 CONFIDENTIAL, DO NOT COPY WITHOUT APPROPRIATE AUTHORIZATION. <Electronically signed in Other Vendor System> SIGNED BY: ELENA TEJADA MD 03/18/16 2130 Assessment/Plan Assessment/Plan This patient presents with recurrent fluid accumulation secondary to atrial fibrillation, left ventricular diastolic and systolic dysfunction and failure to respond to oral diuretics. At this point the recommendation is to continue with IV Lasix until she is at baseline. A change to a different diuretic such as Bumex or Edecrine may be helpful. She should be continued on metolazone as an outpatient as well. I recommend keeping her Roth catheter in place on discharge which will make it a lot easier for her. We should arrange for more frequent intravenous Lasix administration if at all possible at home. I would recommend increasing her diltiazem to 240 mg daily and continuing her on metoprolol 100 milligrams twice daily for better rate control. Once her rate is better controlled she can come off of telemetry. Copies To: HALIE LEONE,NELLIE Gibson Consult Acknowledgment - Thank you for your consult request.
--- NOTE | 2016-03-19 10:18 | PN- Housestaff ---
Subjective Follow-up For: Dyspnea Dyspnea on Exertion Tele-Events Since Last Visit: Atrial fibrillation 99 to low 100s No events Subjective: Ms Lester was seen and examined this morning. She is resting comfortably in bed. Patient reports that she feels remarkably better since admission. She states she was able to sleep exceptionally well last night. Patient reports improvement in shortness of breath and decreased bilateral lower extremity edema. Patient reports that breathing treatments have really helped. Patient also reports decrease in pain on left lower extremity. Pain is currently rated at an 8 out of 10 in severity. Described as an aching pain. Worse with touch and movement. Patient also reports of chronic necrotic wounds under her left arm, left breast, stomach, and left knee. Patient denies any fever, chills, nausea, vomiting. Review of Systems Constitutional: Reports: see HPI. Denies: chills, fever, weakness. Objective Last 24 Hrs of Vital Signs/I&O Vital Signs Date Time Temp Pulse Resp B/P Pulse O2 O2 Flow FiO2 Ox Delivery Rate 03/19 1205 135 120/60 03/19 1038 100 Nasal 2.5L Cannula 03/19 0807 98.3 97 20 120/60 96 Nasal 3.0L Cannula 03/19 0800 96 Nasal 2.0L Cannula 03/18 2300 98.4 108 22 118/80 97 03/18 2202 Nasal 2.0L Cannula 03/18 2024 97.6 106 20 132/70 94 Nasal 2.0L Cannula 03/18 2023 96 Nasal 2.0L Cannula 03/18 1716 98.6 100 20 163/78 96 Nasal 2.0L Cannula 03/18 1602 97 Nasal 2.0L Cannula 03/18 1547 98 Nasal 2.0L Cannula 03/18 1502 119 26 147/79 97 Nasal 3.5L Cannula 03/18 1457 98.1 112 22 136/101 96 Nasal 4.0L Cannula Intake & Output 03/19 1600 03/19 0800 03/19 0000 Intake Total 240 480 Output Total 2200 1700 3100 Balance -2200 -1460 -2620 Intake, Oral 240 480 Number 0 Bowel Movements Output, Urine 2200 1700 3100 Patient 186.88 kg 186.88 kg 185.519 kg Weight Physical Exam General Appearance: Alert, Oriented X3, No Acute Distress HEENT: Mucous Membr. moist/pink Cardiovascular: Normal S1, Normal S2, Irregular Rate/ Rhythm Lungs: Expiratory Wheezing. Limited exam due to body habitus Abdomen: Normal Bowel Sounds, Soft, No Tenderness Neurological: Normal Speech Extremities: Lower Extremity Edema. Bilaterally. L>R. ?Candidisis in skin folds. Current Medications: Current Medications Sig/Jackson Start time Last Medication Dose Route Stop Time Status Admin Acetaminophen 650 MG Q6P PRN 03/18 204 AC PO Acetaminophen/ 1 TAB Q8P PRN 03/18 2030 AC 03/19 Hydrocodone Bitart PO 1328 Albuterol Sulfate 3 ML BID 03/18 220 AC 03/19 INH 1037 Albuterol Sulfate 3 ML ONCE ONE 03/18 1545 DC 03/18 INH 03/18 1546 1602 Alprazolam 0.5 MG TID PRN 03/18 1800 AC PO 03/25 1759 Apixaban 5 MG BID 03/18 220 AC 03/19 PO 1034 Bumetanide 2 MG DAILY 03/20 1000 AC IV Bumetanide 1 MG ONCE ONE 03/19 1100 DC 03/19 IV 03/19 1101 1205 Bumetanide 1 MG DAILY 03/18 2026 DC 03/19 IV 1036 Diltiazem HCl 240 MG DAILY 03/20 1000 AC PO Diltiazem HCl 120 MG DAILY 03/19 1000 CAN PO Diltiazem HCl 120 MG DAILY 03/19 1000 DC 03/19 PO 1034 Furosemide 80 MG DAILY 03/19 1000 CAN IV Furosemide 0 .STK-MED ONE 03/18 1539 DC IV Furosemide 80 MG ONCE ONE 03/18 1530 DC 03/18 IV 03/18 1531 1546 Heparin Sodium 5,000 UNIT Q8 03/18 2199 DC (Porcine) SC Ipratropium Gray 2.5 ML BID 03/18 2200 AC 03/19 INH 1037 Ipratropium Gray 2.5 ML ONCE ONE 03/18 1545 DC 03/18 INH 03/18 1546 1602 Metolazone 2.5 MG DAILY 03/19 1000 AC 03/19 PO 1035 Metoprolol Tartrate 100 MG BID 03/19 1047 AC 03/19 PO 1205 Metoprolol Tartrate 100 MG BID 03/19 1000 CAN PO Nystatin 1 OCRBY TIDPRN PRN 03/18 2245 AC TOP Oxycodone/ 2 TAB Q6P PRN 03/18 2044 AC Acetaminophen PO Prednisone 20 MG BID 03/18 2199 AC 03/19 PO 1035 Senna/Docusate Sodium 1 TAB AT BEDTIME PRN 03/18 2044 AC PO Sodium Hypochlorite 1 CORBY Q6-PRN PRN 03/19 1330 AC TOP Last 24 Hrs of Lab/Stephen Results Last 24 Hrs of Labs/Mics: Laboratory Tests 03/19/16 0620: Anion Gap 12, Estimated GFR 50 L, BUN/Creatinine Ratio 24.5, Troponin I 0.03, CBC w Diff NO MAN DIFF REQ, RBC 5.06, MCV 80.7 L, MCH 26.8 L, RDW 20.4 H, MPV 7.8, Gran % 90.0 H, Lymphocytes % 6.6 L, Monocytes % 3.3, Eosinophils % 0.1, Basophils % 0 L, Absolute Granulocytes 12.4 H, Absolute Lymphocytes 0.9 L, Absolute Monocytes 0.5, Absolute Eosinophils 0, Absolute Basophils 0, PUBS MCHC 33.2 03/18/16 2215: Troponin I 0.02 03/18/16 1512: Anion Gap 12, Estimated GFR > 60, BUN/Creatinine Ratio 26.7 H, Glucose 170 H, Calcium 9.4, Total Bilirubin 0.8, AST 23, ALT 54 H, Alkaline Phosphatase 78, Troponin I 0.02, [id number] Pept 2500 H, Total Protein 7.0, Albumin 4.0, Globulin 3.0, Albumin/Globulin Ratio 1.3, CBC w Diff MAN DIFF ORDERED, RBC 5.18, MCV 80.8 L, MCH 26.3 L, RDW 20.1 H, MPV 7.9, Gran % 89.2 H, Lymphocytes % 6.1 L, Monocytes % 4.2, Eosinophils % 0.3, Basophils % 0.2, Absolute Granulocytes 14.5 H, Absolute Lymphocytes 1.0 L, Absolute Monocytes 0.7 H, Absolute Eosinophils 0, Absolute Basophils 0, Platelet Estimate VERIFIED BY SMEAR, Anisocytosis 1+, PUBS MCHC 32.6 L Microbiology 03/19 1058 URINE ROUT: Urine Culture - CAN Cancelled: Cancelled via OE: Per MD Decision 03/18 1545 URINE ROUT: Urine Culture - RES Assessment/Plan Assessment: This is a 65-year-old lady with past medical history of hypertension, chronic systolic CHF, COPD, obesity hypoventilation syndrome, atrial fibrillation on Eliquis, Psoriasis, seek ED stage IIIa who presented to the [facility] emergency department with worsening dyspnea.CHF versus COPD exacerbation. Patient is limited in terms of her extra care given the fact that she is only able to get around in an ambulance which causes a significant amount of impedance on her [place] medical care. #Acute CHF exacerbation in the setting of our atrial fibrillation with rapid ventricular rate versus bacterial infection Patient received 1 mg IV of budesonide, and subsequently second milligrams IV of budesonide today. She will be placed on 2 mg of IV budesonide from 03/20/2016. BEP in a.m. Daily weights and strict I&O's #Reactive Airway disease Formal pulmonology consultation obtained this morning recommends steroid 20 mg prednisone for 3 days. IV Solu-Medrol 40 mg twice a day. TRC nebs. Maintain saturations above 92%. Patient states she is not on home oxygen however would benefit from supplemental oxygen via nasal cannula. #Obesity hypoventilation syndrome. BiPAP at night. Patient might be eligible for polysomnography as an outpatient. #Questionable worsening cellulitis Vs Intertriginous [place] Formal infectious disease consultation obtained this morning. Patient most likely has intertriginous [place] and will be continued on antifungal treatment. Patient also received a wound care consult. Patient did have an elevated white count (versus due to chronic steroid use) which could be attributed to cellulitis. Leg on the right was tender, erythematous and sensitive to touch. Given her body habitus it was difficult to do a complete exam however she denies any skin breakdown especially on any pressure points. #Atrial fibrillation with RVR Proof Passer Dr. Hernadez of the patient and recommended that we can increase the patient's Cardizem to 240 mg daily. She will receive this medication from . In addition to the above the patient will also resume her dose of metoprolol 100 mg twice a day. Cardiology recommends the patient might benefit from a chronic Roth in place. Patient has responded well to initial therapy and is currently -2820 in fluid balance. Continue patient on Eliquis #Chronic leg venous stasis and edema. PT consult in a.m. Leg elevation #Diet Heart healthy #DVT prophylaxis Patient is on Eliquis #Code Full code Problem List: 1. Mass of thigh 2. Shortness of breath 3. Hypertension 4. Full code status 5. Leukocytosis 6. CHF (congestive heart failure) 7. Anasarca 8. Fluid overload 9. Afib 10. Morbid obesity Pain Ratin Pain Location: LLE Pain Goal: Remain pain free Pain Plan: Percocet Vicodin Tomorrow's Labs & Rationales: BEP: Monitor electrolyte derangements in the setting of diuresis. CBC: Monitor for any active signs of elevated white count in the setting of acute infection.
--- NOTE | 2016-03-19 12:22 | Cons- Pulmonary ---
General Information and HPI Consulting Request Date of Consult: 03/19/16 Requested By: Dr. Lowe Reason for Consult: dyspnea Source of Information: patient Exam Limitations: no limitations History of Present Illness: 65-year-old woman with significant past medical history of stage II diastolic dysfunction, hypertension, obesity hypoventilation and morbid obesity. She has a history of worsening dyspnea over the past 2 months with significant leg edema. I'm consulted to consider sleep apnea as a cause of some of her dyspneic manifestations. She also has a hx of lymphedema that's localized to lower extremity since 2012. History of ECHO showing an ejection fraction 45% with stage II diastolic dysfunction her right ventricular systolic pressures were noted to be 40-45 mmHg. She seems to snore during the nighttime. She is fatigued and somnolent during the day and she easily can take a nap. There is no obvious evidence of apneic episodes. She is feeling better since admission. She also claims to have a diagnosis of COPD, but hasn't had formal studies to her knowledge. She has sporadic albuterol use. She was seen in 2014 however has not followed in the office. Significant leg edema. Feels better after diuresis. Hx asthma as a child, never smoker, unclear whether has COPD exacerbation, can certiainly have reactive airway disease. Allergies/Medications Allergies: Coded Allergies: lisinopril (ABDOMINAL CRAMPING 01/25/16) oxycodone (From Percocet) (NAUSEA 01/25/16) Home Med List: Aclidinium [place] (Tudorza Pressair) 400 MCG/ACTUATION AER.POW.BA 1 PUFF INH BID COPD (Reported) Albuterol Sulfate (Ventolin) 1 UNIT PUF 2 PUF INH Q4 PRN WHEEZING Alprazolam 0.5 MG TABLET 1 TAB PO TIDPRN ANXIETY (Reported) Apixaban (Eliquis) 5 MG TABLET 5 MG PO BID afib Diltiazem Cd (Diltiazem ER) 120 MG CAP.ER.DEG 120 MG PO DAILY afib Furosemide 10 MG/ML VIAL 8 ML IV DAILY PRN Fluid retention Please give PRN ONLY for excessive weight gain from fluid retention or reduced O2 saturation. Clarify with catalyst recovery operator Dr. Hernadez before giving dose. Furosemide (Lasix) 80 MG TABLET 1 TAB PO BID heart Reason to Stop at ADM: IV Hydrocodone/Acetaminophen (Hydrocodon-Acetaminophn 10-325) 10 MG-325 MG TABLET 1 TAB PO TIDPRN PAIN (Reported) Metolazone 2.5 MG TABLET 1 TAB PO DAILY DIURETIC (Reported) Metoprolol Tartrate 50 MG TABLET 100 MG PO BID afib Potassium Chloride 20 MEQ TAB.ER.PRT 1 TAB PO BID SUPPLEMENT (Reported) Prednisone 20 MG TABLET 1 TAB PO BID RASH (Reported) Current Medications: Current Medications Sig/Jackson Start time Last Medication Dose Route Stop Time Status Admin Acetaminophen 650 MG Q6P PRN 03/18 2045 AC PO Acetaminophen/ 1 TAB Q8P PRN 03/18 2030 AC Hydrocodone Bitart PO Albuterol Sulfate 3 ML BID 03/18 2200 AC 03/19 INH 1037 Albuterol Sulfate 3 ML ONCE ONE 03/18 1545 DC 03/18 INH 03/18 1546 1602 Alprazolam 0.5 MG TID PRN 03/18 1800 AC PO 03/25 1759 Apixaban 5 MG BID 03/18 2200 AC 03/19 PO 1034 Bumetanide 2 MG DAILY 03/20 1000 AC IV Bumetanide 1 MG ONCE ONE 03/19 1100 DC 03/19 IV 03/19 1101 1205 Bumetanide 1 MG DAILY 03/18 2026 DC 03/19 IV 1036 Diltiazem HCl 120 MG DAILY 03/19 1000 CAN PO Diltiazem HCl 120 MG DAILY 03/19 1000 AC 03/19 PO 1034 Furosemide 80 MG DAILY 03/19 1000 CAN IV Furosemide 0 .STK-MED ONE 03/18 1539 DC IV Furosemide 80 MG ONCE ONE 03/18 1530 DC 03/18 IV 03/18 1531 1546 Heparin Sodium 5,000 UNIT Q8 03/18 2200 DC (Porcine) SC Ipratropium [place] 2.5 ML BID 03/18 2200 AC 03/19 INH 1037 Ipratropium [place] 2.5 ML ONCE ONE 03/18 1545 DC 03/18 INH 03/18 1546 1602 Metolazone 2.5 MG DAILY 03/19 1000 AC 03/19 PO 1035 Metoprolol Tartrate 100 MG BID 03/19 1047 AC 03/19 PO 1205 Metoprolol Tartrate 100 MG BID 03/19 1000 CAN PO Nystatin 1 CORBY TIDPRN PRN 03/18 2245 AC TOP Oxycodone/ 2 TAB Q6P PRN 03/18 2044 AC Acetaminophen PO Prednisone 20 MG BID 03/18 2199 AC 03/19 PO 1035 Senna/Docusate Sodium 1 TAB AT BEDTIME PRN 03/18 2044 AC PO Review of Systems Comments 18 point Review of Systems performed. Positive and negative pertinent findings are deliniated in the HPI. Otherwise the ROS is negative. 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 Home Who Do You Live With? spouse Services at Home: Nursing Primary Language: Wolof Smoking Status: Never Smoked ETOH Use: denies use Illicit Drug Use: denies illicit drug use Functional Ability ADLs Independent: dressing, eating, toileting, bathing. IADLs Independent: shopping, housework, finances, food prep, telephone, transportation , medication admin. Employment History Employment: Employed Profession/Employer: [employer] Exam & Diagnostic Data Last 24 Hrs of Vital Signs/I&O Vital Signs Date Time Temp Pulse Resp B/P Pulse O2 O2 Flow FiO2 Ox Delivery Rate 03/19 1205 135 120/60 03/19 1038 100 Nasal 2.5L Cannula 03/19 0807 98.3 97 20 120/60 96 Nasal 3.0L Cannula 03/19 0800 96 Nasal 2.0L Cannula 03/18 2300 98.4 108 22 118/80 97 03/18 2202 Nasal 2.0L Cannula 03/18 2024 97.6 106 20 132/70 94 Nasal 2.0L Cannula 03/18 2023 96 Nasal 2.0L Cannula 03/18 1716 98.6 100 20 163/78 96 Nasal 2.0L Cannula 03/18 1602 97 Nasal 2.0L Cannula 03/18 1547 98 Nasal 2.0L Cannula 03/18 1502 119 26 147/79 97 Nasal 3.5L Cannula 03/18 1457 98.1 112 22 136/101 96 Nasal 4.0L Cannula Intake & Output 03/19 1600 03/19 0800 03/19 0000 Intake Total 240 480 Output Total 1700 3100 Balance -1460 -2620 Intake, Oral 240 480 Number 0 Bowel Movements Output, Urine 1700 3100 Patient 412 lb 412 lb 409 lb Weight Physical Exam Other Physical Findings: General - Alert, awake and oriented HEENT - normocephalic, atraumatic Cardiovascular - S1, S2 Lungs - diminished bs at bases Abdomen - soft, bowel sounds positive, no tenderness Extremities - significant edema Last 48 Hrs of Labs/Stephen: Laboratory Tests 03/19/16 0620: Anion Gap 12, Estimated GFR 50 L, BUN/Creatinine Ratio 24.5, Troponin I 0.03, CBC w Diff NO MAN DIFF REQ, RBC 5.06, MCV 80.7 L, MCH 26.8 L, RDW 20.4 H, MPV 7.8, Gran % 90.0 H, Lymphocytes % 6.6 L, Monocytes % 3.3, Eosinophils % 0.1, Basophils % 0 L, Absolute Granulocytes 12.4 H, Absolute Lymphocytes 0.9 L, Absolute Monocytes 0.5, Absolute Eosinophils 0, Absolute Basophils 0, PUBS MCHC 33.2 03/18/16 2215: Troponin I 0.02 03/18/16 1512: Anion Gap 12, Estimated GFR > 60, BUN/Creatinine Ratio 26.7 H, Glucose 170 H, Calcium 9.4, Total Bilirubin 0.8, AST 23, ALT 54 H, Alkaline Phosphatase 78, Troponin I 0.02, Mjg-[id number]-Gkcnxthcsps Pept 2500 H, Total Protein 7.0, Albumin 4.0, Globulin 3.0, Albumin/Globulin Ratio 1.3, CBC w Diff MAN DIFF ORDERED, RBC 5.18, MCV 80.8 L, MCH 26.3 L, RDW 20.1 H, MPV 7.9, Gran % 89.2 H, Lymphocytes % 6.1 L, Monocytes % 4.2, Eosinophils % 0.3, Basophils % 0.2, Absolute Granulocytes 14.5 H, Absolute Lymphocytes 1.0 L, Absolute Monocytes 0.7 H, Absolute Eosinophils 0, Absolute Basophils 0, Platelet Estimate VERIFIED BY SMEAR, Anisocytosis 1+, PUBS MCHC 32.6 L Assessment/Plan Impression/Plan: Impression 64-year-old woman with significant past medical history of stage II diastolic dysfunction, hypertension, obesity hypoventilation and morbid obesity. Systolic and diastolic heart failure with some evidence of pulmonary hypertension. Unlikely COPD, more likely reactive airway disease (asthma as a child). Plan -patient is very reluctant to undergo a sleep evaluation, but will consider it as an outpatient, I provided my contact information to her -PFTs are unlikely to be performed due to logistics, she certainly will have a restrictive lung disease component, will consider as outpatient -would taper steroids quickly, give 20mg x 3 days then stop -diuresis/ins and outs, f/u cardiology -pt on tudorza at home, this may need to be changed based on her outcome -TRC/Nebs -dvt prophylaxis at all times Thank you in allowing me to participate in the care of this patient. I will continue to follow along with the patient's progress. Please do not hesitate to call about any questions or issues. Consult Acknowledgment - Thank you for your consult request.
--- NOTE | 2016-03-19 13:22 | Patient Discharge Instructions ---
Discharge Instructions General Discharge Information You were seen/treated for: Sanam SubramanianFrankFib Hyperkalemia Obesity Hypoventilation Syndrome Watch for these problems: Fever, nausea, vomiting, chills, weakness, increased generalized edema. Palpitations. Chest pain. Shortness of breath. If you have any adverse reactions from any of the medications prescribed please inform your primary care physician and you may be required to come back to the emergency department. Thank you for allowing us to be part of your care. Special Instructions: Please follow-up with your primary care physician, Dr Romero on 03/26/2016. This is for a post hospital discharge follow-up. You will need to speak to your primary care physician about your new medication changes. Please follow-up with Dr Hernadez on 03/28/2016. We have provided you with a referral. Please follow-up with the Dr Stout ([place] Installation Helper) on 03/28/2016. We have provided you with a referral. You may undergo a sleep evaluation. Please follow-up with Dr Waldron (functional analyst) on 04/02/2016. We have provided you with a referral.You might be considered for a colonoscopy. Please follow-up with Dr Rivero (Urologist) on 04/02/2016. We have provided you with a referral. You might be considered for a suprapubic catheter. Your Potassium dose has been increased, please take this medication at the new increase dose. Please have a BEP on 03/28/2016. CC results to your PCP. Diet Continue normal diet: No Recommended Diet: Heart Healthy Activity Full Activity/No Limits: No Acute Coronary Syndrome Inclusion Criteria At DC or during hospital stay patient has or had the following: ACS DIAGNOSIS No Discharge Core Measures Meds if any: Prescribed or Continued at Discharge Meds if any: NOT Prescribed or Continued at Discharge Congestive Heart Failure Inclusion Criteria At DC or during hospital stay patient has or had the following: CHF DIAGNOSIS No Discharge Core Measures Meds if any: Prescribed or Continued at Discharge Meds if any: NOT Prescribed or Continued at Discharge Cerebrovascular accident Inclusion Criteria At DC or during hospital stay patient has or had the following: CVA/TIA Diagnosis No Discharge Core Measures Meds if any: Prescribed or Continued at Discharge Meds if any: NOT Prescribed or Continued at Discharge Venous thromboembolism Inclusion Criteria VTE Diagnosis No VTE Type NONE VTE Confirmed by (Test) NONE Discharge Core Measures - Per Current guidelines, there needs to be overlap - treatment for the first 5 days of Warfarin therapy. - If discharged on Warfarin prior to 5 days of - overlap therapy, the patient will need to be - assessed for post discharge needs including - *Post discharge parental anticoagulation - *Warfarin and/or parental anticoagulation education - *Follow up date to check INR post discharge At least 5 days overlap therapy as Inpatient No Meds if any: Prescribed or Continued at Discharge Note: Overlap Therapy is Warfarin and Anticoagulant Meds if any: NOT Prescribed or Continued at Discharge
--- NOTE | 2016-03-19 15:14 | Cons- Infect Disease ---
General Information and HPI Consulting Request Date of Consult: 03/19/16 Requested By: KADEEM LOPEZ MD Reason for Consult: Rule out cellulitis Source of Information: patient, old records History of Present Illness: This is a 65-year-old woman with morbid obesity, COPD, obesity hypoventilation syndrome, atrial fibrillation, maintained on Eliquis, psoriasis, maintained on prednisone, which is felt to explain her persistent leukocytosis, chronic renal insufficiency and diastolic CHF, status post 2 recent hospitalizations for fluid overload/CHF, most recently 2 weeks prior to admission, readmitted on March 18 after presenting to the emergency room with increasing leg swelling, shortness of breath at rest and a 40 pound weight gain since her recent hospitalization. On admission she was afebrile, with an O2 sat of 98% on 4 L. Laboratory data revealed a white blood cell count of 16,000, BUN/creatinine 24 and 0.9, AST/ALT 23 and 54, BNP 2500. Chest x-ray revealed interval development of patchy airspace opacities within the right hilar region and right lung base. She was given IV Lasix and continued on prednisone. She has diuresed over 5 L of fluid and feels improved today. She has remained afebrile since admission and white blood cell count has decreased. Allergies/Medications Allergies: Coded Allergies: lisinopril (ABDOMINAL CRAMPING 01/25/16) oxycodone (From Percocet) (NAUSEA 01/25/16) Home Med List: Aclidinium [place] (Tudorza Pressair) 400 MCG/ACTUATION AER.POW.BA 1 PUFF INH BID COPD (Reported) Albuterol Sulfate (Ventolin) 1 UNIT PUF 2 PUF INH Q4 PRN WHEEZING Alprazolam 0.5 MG TABLET 1 TAB PO TIDPRN ANXIETY (Reported) Apixaban (Eliquis) 5 MG TABLET 5 MG PO BID afib Diltiazem Cd (Diltiazem ER) 120 MG CAP.ER.DEG 120 MG PO DAILY afib Furosemide 10 MG/ML VIAL 8 ML IV DAILY PRN Fluid retention Please give PRN ONLY for excessive weight gain from fluid retention or reduced O2 saturation. Clarify with rib chopper Dr. Hernadez before giving dose. Furosemide (Lasix) 80 MG TABLET 1 TAB PO BID heart Reason to Stop at ADM: IV Hydrocodone/Acetaminophen (Hydrocodon-Acetaminophn 10-325) 10 MG-325 MG TABLET 1 TAB PO TIDPRN PAIN (Reported) Metolazone 2.5 MG TABLET 1 TAB PO DAILY DIURETIC (Reported) Metoprolol Tartrate 50 MG TABLET 100 MG PO BID afib Potassium Chloride 20 MEQ TAB.ER.PRT 1 TAB PO BID SUPPLEMENT (Reported) Prednisone 20 MG TABLET 1 TAB PO BID RASH (Reported) Past History Travel History Traveled to [place] past 21 day No Medical History Blood Transfusion Hx: No Neurological: NONE EENT: NONE Cardiovascular: AFIB, CHF, hypertension Respiratory: COPD Gastrointestinal: NONE Hepatic: NONE 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 Home Who Do You Live With? spouse Services at Home: Nursing Primary Language: Sami Smoking Status: Never Smoked ETOH Use: denies use Illicit Drug Use: denies illicit drug use Functional Ability ADLs Independent: dressing, eating, toileting, bathing. IADLs Independent: shopping, housework, finances, food prep, telephone, transportation , medication admin. 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 Denies: chills, fever. Cardiovascular: Denies: chest pain. Respiratory: Reports: cough (minimal). GI: Reports: no symptoms. Genitourinary: Reports: no symptoms. All Other Systems: Reviewed and Negative Exam & Diagnostic Data Last 24 Hrs of Vital Signs/I&O Vital Signs Date Time Temp Pulse Resp B/P Pulse O2 O2 Flow FiO2 Ox Delivery Rate 03/19 1205 135 120/60 03/19 1038 100 Nasal 2.5L Cannula 03/19 0807 98.3 97 20 120/60 96 Nasal 3.0L Cannula 03/19 0800 96 Nasal 2.0L Cannula 03/18 2300 98.4 108 22 118/80 97 03/18 2202 Nasal 2.0L Cannula 03/18 2024 97.6 106 20 132/70 94 Nasal 2.0L Cannula 03/18 2023 96 Nasal 2.0L Cannula 03/18 1716 98.6 100 20 163/78 96 Nasal 2.0L Cannula 03/18 1602 97 Nasal 2.0L Cannula 03/18 1547 98 Nasal 2.0L Cannula Intake & Output 03/19 1600 03/19 0800 03/19 0000 Intake Total 840 240 480 Output Total 2200 1700 3100 Balance -1360 -1460 -2620 Intake, Oral 840 240 480 Number 1 0 Bowel Movements Output, Urine 2200 1700 3100 Patient 412 lb 412 lb 409 lb Weight Physical Exam Other Physical Findings: She is awake and alert in no acute distress. She is afebrile on steroids. Skin reveals no rash. HEENT exam is negative. Neck is supple with no adenopathy. Lungs bilateral expiratory wheezes. Heart regular rhythm with no murmur. Abdomen is obese, soft, nontender with positive bowel sounds. Back no CVA tenderness. Extremities bilateral lower extremity edema, left greater than right, with minimal erythema or tenderness; left thigh pannus; candidiasis within the groin and other intertriginous areas. Neuro is without focality. Roth catheter is in place. Last 24 Hours of Lab Results: Laboratory Tests 03/19 03/18 0620 2215 Chemistry Sodium (137 - 145 mmol/L) 139 Potassium (3.5 - 5.1 mmol/L) 5.0 Chloride (98 - 107 mmol/L) 96 L Carbon Dioxide (22 - 30 mmol/L) 32 H Anion Gap (5 - 16) 12 BUN (7 - 17 mg/dL) 27 H Creatinine (0.5 - 1.0 mg/dL) 1.1 H Estimated GFR (>60 ml/min) 50 L BUN/Creatinine Ratio (7 - 25 %) 24.5 Troponin I (< 0.11 ng/ml) 0.03 0.02 Hematology CBC w Diff NO MAN DIFF REQ WBC (4.8 - 10.8 /CUMM) 13.8 H RBC (4.20 - 5.40 /CUMM) 5.06 Hgb (12.0 - 16.0 G/DL) 13.5 Hct (37 - 47 %) 40.8 MCV (81.0 - 99.0 FL) 80.7 L MCH (27.0 - 31.0 PG) 26.8 L RDW (11.5 - 14.5 %) 20.4 H Plt Count (130 - 400 /CUMM) 256 MPV (7.4 - 10.4 FL) 7.8 Gran % (42.2 - 75.2 %) 90.0 H Lymphocytes % (20.5 - 51.1 %) 6.6 L Monocytes % (1.7 - 9.3 %) 3.3 Eosinophils % (0 - 5 %) 0.1 Basophils % (0.0 - 2.0 %) 0 L Absolute Granulocytes (1.4 - 6.5 /CUMM) 12.4 H Absolute Lymphocytes (1.2 - 3.4 /CUMM) 0.9 L Absolute Monocytes (0.10 - 0.60 /CUMM) 0.5 Absolute Eosinophils (0.0 - 0.7 /CUMM) 0 Absolute Basophils (0.0 - 0.2 /CUMM) 0 PUBS MCHC (33.0 - 37.0 G/DL) 33.2 Last 24 Hours of Stephen Results: Urine culture March 18 negative Diagnostic Data Recent Imaging Findings: Chest x-ray March 18, personally reviewed, reveals interval development of patchy airspace opacities within the right hilar region as well as the right lung base Assessment/Plan Assessment/Plan Impression: This is a 65-year-old woman with a history of COPD, obesity hypoventilation syndrome, atrial fibrillation, psoriasis, maintained on prednisone, chronic renal insufficiency and diastolic CHF admitted on March 18 with increasing lower extremity edema, shortness of breath and weight gain over the past several weeks, found to be afebrile with a leukocytosis and with evidence on chest x-ray of increased markings suggestive of CHF, treated with Lasix with diuresis and with improvement in her symptoms. She does not appear to have any evidence for cellulitis, with minimal erythema and tenderness on exam of the lower extremities and I suspect that her symptoms are all secondary to CHF. Her leukocytosis appears to be chronic and is likely secondary to the prednisone. The recommendation has been made that she be discharged with the Roth catheter, but, if this is felt to be indefinite, then alternatives, for example suprapubic cystostomy, should be considered. Suggestion: 1. Further management of her CHF per Cardiology 2. Consider a suprapubic cystostomy if feel that she will quite require a long- term indwelling urinary catheter 3. Continue topical antifungal treatment to the groin and other intertriginous areas 4. Continue to follow off antibiotics Consult Acknowledgment - Thank you for your consult request.
[2016-03-19 17:02] VITALS: BP 134/86
--- NOTE | 2016-03-19 17:47 | Event Note ---
Event Note Event Note: At 4.35 p.m., the nurse called me to evaluate Ms. Lester because of vomiting. I went immediately to evaluate the patient, she was vomiting dark brown coffee- ground vomits, mentioned that she feels "very sick" and has been vomiting since 3:30 PM, was given Zofran but didn't help. She also reported abdominal distention and bloating, last bowel movement was yesterday of normal stool consistency, had lunch this afternoon without any issues. She denied any previous history of coffee-ground vomits, denied PMH peptic ulcer, esophygeal varecies, alcohol consumption. Vital signs blood pressure 134/86, pulse 128, respiratory rate 22 on 2 L after 95% saturation, temperature 98 Patient was given Reglan 10 mg IV CBC stat was ordered Abdominal x-ray stat was ordered GI was contacted, Dr. Sweeney, he recommend to stop Eliquis, start Protonix 40 twice a day and keep the patient nothing by mouth Cardiology, Dr. Hernadez, was contacted for his recommendations regarding Eliquis, he is okay to hold it for now My self and the resident Dr. hPam will continue to follow
[2016-03-19 18:07] LABS: ABSOLUTE BASOPHIL COUNT 0.1 /CUMM (0.0-0.2); ABSOLUTE EOSINOPHIL COUNT 0 /CUMM (0.0-0.7); ABSOLUTE GRANULOCYTE CT 14.3 /CUMM (1.4-6.5); ABSOLUTE LYMPH COUNT 1.3 /CUMM (1.2-3.4); ABSOLUTE MONOCYTE COUNT 0.6 /CUMM (0.10-0.60); BASOPHIL % 0.3 % (0.0-2.0); EOSINOPHIL % 0.1 % (0-5); GRANULOCYTE % 88.2 % (42.2-75.2); HEMATOCRIT 44.5 % (37-47); MEAN CORPUSCULAR HGB 26.3 PG (27.0-31.0); MEAN CORPUSCULAR HGB CONC 32.7 G/DL (33.0-37.0); MEAN CORPUSCULAR VOLUME 80.4 FL (81.0-99.0); MEAN PLATELET VOLUME 7.7 FL (7.4-10.4); PLATELET COUNT 280 /CUMM (130-400); RBC DISTRIBUTION WIDTH 20.2 % (11.5-14.5); RED BLOOD CELL CT 5.53 /CUMM (4.20-5.40); WHITE BLOOD CELL COUNT 16.2 /CUMM (4.8-10.8)
--- NOTE | 2016-03-19 18:13 | RADIOLOGY REPORT ---
EXAMINATION: XR PORTABLE ABDOMEN CLINICAL INFORMATION: Stat vomiting. Coffee-ground vomiting. COMPARISON: None. TECHNIQUE: Supine AP abdomen 5:51 PM FINDINGS: Exam limited by body habitus. There is underpenetration and motion. No abnormal dilated bowel loops. Nonobstructive bowel pattern. IMPRESSION: Exam limited by body habitus. Nonobstructive bowel pattern.
--- NOTE | 2016-03-19 20:30 | NUR ---
NAUSEA/VOMITIN:45 PM PT C/O SUDDEN NAUSEA & VOMITING. EMESIS IS LOOSE/MED BROWN W/ FOOD PARTICLES. DR MCKEON MADE AWARE. MEDS FOR NAUSEA PER EMAR AT 1550. POOR RESPONSE TO MEDICATION. DR VAZQUEZ MADE AWARE PT CONTINUES TO VOMIT. GUIAC+ DARK BROWN W/ FOOD PARTICLES. BP 180/120 HR 136. MEDS PER EMAR FOR NAUSEA WITH SLIGHTLY BETTER RESPONSE. INTERMITTENT VOMITING. ESTIMATED TOTAL >800 ML OF EMESIS. ABD XRAY DONE. LABS DRAWN & SENT. BP 142/88 HR 110. WILL CONTINUE TO MONITOR.
--- NOTE | 2016-03-19 21:21 | Event Note ---
Event Note Event Note: Spoke to Leena Lemos regarding patient's persistent RVR in the setting of not able to tolerate po cardizem 2/2 to vomiting/and severe nausea. Dr Sharp reccomended IV Cardizem bolus of 10mg and starting Cardizem drip of 5mg/hr and titrate as tolerated.
[2016-03-19 21:51] LABS: PT 13.2 SEC (9.4-12.5)
[2016-03-19 22:00] VITALS: BP 130/80
[2016-03-20 05:52] LABS: ABSOLUTE BASOPHIL COUNT 0.1 /CUMM (0.0-0.2); ABSOLUTE EOSINOPHIL COUNT 0.1 /CUMM (0.0-0.7); ABSOLUTE GRANULOCYTE CT 11.4 /CUMM (1.4-6.5); ABSOLUTE LYMPH COUNT 1.9 /CUMM (1.2-3.4); ABSOLUTE MONOCYTE COUNT 1.1 /CUMM (0.10-0.60); BASOPHIL % 0.4 % (0.0-2.0); EOSINOPHIL % 0.5 % (0-5); GRANULOCYTE % 78.4 % (42.2-75.2); HEMATOCRIT 40.2 % (37-47); MEAN CORPUSCULAR HGB 26.7 PG (27.0-31.0); MEAN CORPUSCULAR HGB CONC 33.3 G/DL (33.0-37.0); MEAN CORPUSCULAR VOLUME 80.2 FL (81.0-99.0); MEAN PLATELET VOLUME 7.8 FL (7.4-10.4); PLATELET COUNT 245 /CUMM (130-400); RBC DISTRIBUTION WIDTH 20.1 % (11.5-14.5); RED BLOOD CELL CT 5.02 /CUMM (4.20-5.40); WHITE BLOOD CELL COUNT 14.6 /CUMM (4.8-10.8)
--- NOTE | 2016-03-20 06:57 | PN- Housestaff ---
LINDA LEONE,[facility] 03/20/16 0657: Subjective Follow-up For: Recurrent fluid accumulation Reactive airway disease Hematemesis Subjective: Ms Lester was seen and examined this morning. Resting comfortably in bed. She still continues to report nausea and requests that she should be taken off nothing by mouth because should would like to eat crackers. She states that this may help her with her symptoms. Overnight she says she was unable to get much rest owing to the fact that she felt nauseous. She had one episode of emesis. Patient denies any chest pain and/or chest discomfort. She denies any shortness of breath. She mentions that her breathing has improved due to increased fluid diuresis. She also denies any pain in her lower left leg. States that her skin still feels tender owing to increased stretching but no active pain compared to the last 24 hours. Patient denies any fever, chills, nausea, vomiting. Review of Systems Constitutional: Reports: see HPI. Objective Last 24 Hrs of Vital Signs/I&O Vital Signs Date Time Temp Pulse Resp B/P Pulse O2 O2 Flow FiO2 Ox Delivery Rate 03/19 2130 128 134/86 03/19 2100 97 Nasal 2.0L Cannula 03/19 1702 98.5 128 20 134/86 95 Nasal 2.0L Cannula 03/19 1600 96 Nasal 2.0L Cannula 03/19 1205 135 120/60 03/19 1038 100 Nasal 2.5L Cannula 03/19 0807 98.3 97 20 120/60 96 Nasal 3.0L Cannula 03/19 0800 96 Nasal 2.0L Cannula Intake & Output 03/20 0800 03/20 0000 03/19 1600 Intake Total 840 Output Total 1000 2200 Balance -1000 -1360 Intake, Oral 840 Number 1 Bowel Movements Output, Urine 1000 2200 Patient 179.169 kg 186.88 kg Weight Physical Exam General Appearance: Alert, Oriented X3, Cooperative Cardiovascular: Normal S1, Normal S2, Irregular Rate and rhythm Lungs: Mild Expiratory Wheezing. L>R Abdomen: Normal Bowel Sounds, Soft, No Tenderness Neurological: Normal Speech Extremities: Lower Extremity Edema. Bilaterally L>R. Current Medications: Current Medications Sig/Jackson Start time Last Medication Dose Route Stop Time Status Admin Acetaminophen 650 MG Q6P PRN 03/18 2044 AC PO Acetaminophen/ 1 TAB Q8P PRN 03/18 2030 AC 03/19 Hydrocodone Bitart PO 1328 Albuterol Sulfate 3 ML BID 03/18 2200 AC 03/19 INH 1037 Alprazolam 0.5 MG TID PRN 03/18 1800 AC PO 03/25 1759 Apixaban 5 MG BID 03/18 2200 DC 03/19 PO 1034 Bumetanide 2 MG DAILY 03/20 1000 AC IV Bumetanide 1 MG ONCE ONE 03/19 1100 DC 03/19 IV 03/19 1101 1205 Bumetanide 1 MG DAILY 03/18 202 DC 03/19 IV 1036 Diltiazem HCl 240 MG DAILY 03/20 1000 CAN PO Diltiazem HCl 125 MG Q24H 03/19 2130 AC 03/19 Sodium Chloride 100 ML IV 2140 Diltiazem HCl 10 MG ONCE ONE 03/19 211 DC 03/19 IV 03/19 211 2130 Diltiazem HCl 120 MG DAILY 03/19 1000 DC 03/19 PO 1034 Furosemide 80 MG DAILY 03/19 1000 CAN IV Ipratropium [place] 2.5 ML BID 03/18 2200 AC 03/19 INH 1037 Metoclopramide HCl 10 MG ONCE ONE 03/19 1715 DC 03/19 IV 03/19 1716 1749 Metolazone 2.5 MG DAILY 03/19 1000 AC 03/19 PO 1035 Metoprolol Tartrate 100 MG BID 03/19 1047 AC 03/19 PO 1205 Nystatin 1 CORBY TIDPRN PRN 03/18 2245 AC TOP Ondansetron HCl 4 MG Q6 03/19 2037 AC 03/20 IV 0600 Ondansetron HCl 4 MG ONCE ONE 03/19 1545 DC 03/19 IV 03/19 1546 1553 Oxycodone/ 2 TAB Q6P PRN 03/18 2045 AC Acetaminophen PO Pantoprazole Sodium 40 MG BID 03/20 1000 AC IV Pantoprazole Sodium 40 MG ONCE ONE 03/19 1745 DC 03/19 IV 03/19 1746 1759 Potassium Chloride 10 MEQ Q1H 03/20 0745 AC IV 03/20 0846 Prednisone 20 MG BID 03/18 2200 AC 03/19 PO 1035 Prochlorperazine 10 MG ONCE ONE 03/19 1745 DC 03/19 IM 03/19 1746 1759 Senna/Docusate Sodium 1 TAB AT BEDTIME PRN 03/18 2044 AC PO Sodium Hypochlorite 1 CORBY Q6-PRN PRN 03/19 1330 AC TOP Last 24 Hrs of Lab/Stephen Results Last 24 Hrs of Labs/Mics: Laboratory Tests 03/20/16 0600: CBC w Diff Cancelled, WBC Cancelled, RBC Cancelled, Hgb Cancelled, Hct Cancelled , MCV Cancelled, MCH Cancelled, RDW Cancelled, Plt Count Cancelled, MPV Cancelled, PUBS MCHC Cancelled 03/20/16 0510: Anion Gap 12, Estimated GFR 56 L, BUN/Creatinine Ratio 29.0 H, Amylase < 30 L , Lipase 131, CBC w Diff NO MAN DIFF REQ, RBC 5.02, MCV 80.2 L, MCH 26.7 L, RDW 20.1 H, MPV 7.8, Gran % 78.4 H, Lymphocytes % 12.8 L, Monocytes % 7.9, Eosinophils % 0.5, Basophils % 0.4, Absolute Granulocytes 11.4 H, Absolute Lymphocytes 1.9, Absolute Monocytes 1.1 H, Absolute Eosinophils 0.1, Absolute Basophils 0.1, PUBS MCHC 33.3 03/19/160: Troponin I 0.03, PT 13.2 H, INR 1.26 H 03/19/16 1730: CBC w Diff MAN DIFF ORDERED, RBC 5.53 H, MCV 80.4 L, MCH 26.3 L, RDW 20.2 H, MPV 7.7, Gran % 88.2 H, Lymphocytes % 7.8 L, Monocytes % 3.6, Eosinophils % 0.1, Basophils % 0.3, Absolute Granulocytes 14.3 H, Segmented Neutrophils 86 H , Band Neutrophils 2, Absolute Lymphocytes 1.3, Lymphocytes 8 L, Monocytes 3, Absolute Monocytes 0.6, Absolute Eosinophils 0, Basophils 1, Absolute Basophils 0.1, Platelet Estimate ADEQUATE, Normochromic RBCs VERIFIED, Anisocytosis 1+, PUBS MCHC 32.7 L Microbiology 03/19 1058 URINE ROUT: Urine Culture - CAN Cancelled: Cancelled via OE: Per MD Decision Assessment/Plan Assessment: This is a 65-year-old lady with past medical history of hypertension, chronic systolic CHF, COPD, obesity hypoventilation syndrome, atrial fibrillation on Eliquis, Psoriasis, seek ED stage IIIa who presented to the [facility] emergency department with worsening dyspnea.CHF versus COPD exacerbation. Patient is limited in terms of her extra care given the fact that she is only able to get around in an ambulance which causes a significant amount of limitations on her outpatient follow-up. #Acute CHF exacerbation in the setting of our atrial fibrillation with rapid ventricular rate versus bacterial infection Patient received 1 mg IV of budesonide, and subsequently second milligrams IV of budesonide today. Continued on 2 mg of IV budesonide from 03/20/2016. Patient currently responds well to diuretic. Currently -9460 fluid balance. BEP in a.m. Daily weights and strict I&O's #Coffee-ground emesis and nausea Formal GI consult obtained. Patient is not likely to go for endoscopy unless becomes hemodynamically unstable. Differentials include Layne-Mariscal tear versus bleeding from AVM versus peptic ulcer disease due to stress from hospitalization. Advancing tolerated diet as tolerated. PPIs changed to oral. Patient will be referred to GI service for outpatient follow-up. #Reactive Airway disease Formal pulmonology consultation obtained this morning recommends steroid 20 mg prednisone for 3 days, today is day 2 of 20 mg steroid.. IV Solu-Medrol 40 mg twice a day. TRC nebs. Maintain saturations above 92%. Patient states she is not on home oxygen however would benefit from supplemental oxygen via nasal cannula. #Obesity hypoventilation syndrome. BiPAP at night. Patient might be eligible for polysomnography as an outpatient. #Questionable worsening cellulitis Vs Intertriginous [place] Patient most likely has intertriginous [place] and will be continued on antifungal treatment. Patient also received a wound care consult: Recommend left posterior thigh which can be treated with barrier cream, anterior abdomen wall ulcer cleansed and daily Xeroform dressings. Patient did have an elevated white count (versus due to chronic steroid use) which could be attributed to cellulitis. Leg on the right was tender, erythematous and sensitive to touch. Given her body habitus it was difficult to do a complete exam however she denies any skin breakdown especially on any pressure points. #Atrial fibrillation with RVR Patient was started on Cardizem drip last evening (03/19/2016) due to hematemesis and patient had to be made nothing by mouth in anticipation that she may go for scope. Patient is currently at 7.5 mL per hour of Cardizem drip. Dose increased from 5 mL per hour of Cardizem drip this am. Patient will begin Cardizem P.O on 03/21/2016 an 1000. Once drip is discontinued. This was confirmed with pharmacy. Metoprolol 100 mg twice a day continued. Maintenance Technician Dr. Hernadez of the patient and recommended that we can increase the patient's Cardizem to 240 mg daily. She will receive this medication from . In addition to the above the patient will also resume her dose of metoprolol 100 mg twice a day. Cardiology recommends the patient might benefit from a chronic Roth in place. Continue patient on Eliquis #Chronic leg venous stasis and edema. PT consult in a.m. Leg elevation #Diet Heart healthy #DVT prophylaxis Patient is on Eliquis, can be resumed this evening. #Code Full code Problem List: 1. COPD (chronic obstructive pulmonary disease) 2. Morbid obesity 3. Lymphedema 4. Afib 5. Skin rash 6. Fluid overload 7. Anasarca 8. Coffee ground emesis Pain Ratin Pain Location: No Pain Reported Pain Goal: Remain pain free Pain Plan: Tylenol PRN Tomorrow's Labs & Rationales: CBC: H&H in the setting of acute blood loss. BEP monitor electrolytes to ensure hypokalemia resolved KADEEM Rojas MD 03/20/16 4127: Attending MD Review Statement Attending Statement Attending MD Statement: examined this patient, discuss w/resident/PA/CURED MEATS SUPERVISOR, agreed w/resident/PA/CURED MEATS SUPERVISOR, discussed with family, reviewed EMR data (avail), discussed with nursing, discussed with case mgmt, amended to note Attending Assessment/Plan: The patient was seen and discussed with house staff. Appreciate GI evaluation. Agree with plan of care as outlined.
--- NOTE | 2016-03-20 07:48 | NUR ---
WOUND CARE: REQUESTED BY MEDICAL STAFF TO EVALUATE PT FOR SKIN ALTERATIONS PRESENT ON ADMISSION - HX OBTAINED FROM PT AND STAFF - MORBIDLY OBESE FEMALE WITH AREAS OF FUNGAL RASH AND MACERATION TO SKIN FOLDS - LEFT AXILLA NOTED WITH PINK MOIST MACRATED SKIN, WELL FUNGAL RASH TO LEFT ABD FOLDS AND LEFT POSTERIOR KNEE FOLD - FOUL YEASTY ODOR NOTED TO AREAS DESPITE RN REPORT THAT PT HAD JUST BEEN CLEANSED - PT REPORTS SHE TYPICALLY LAYS ON LEFT SIDE DU TO BREATHING PROBLEMS, AND INABLILITY TO THROUGHOULY DRY ALL AREAS - CURRENTLY BEING TX WITH NYSTATIN POWDER - LEFT POSTERIOR THIGH PRESENTS WTIH AN UNSRTAGEABLE OPEN AREA 0.3 X 0.3 CM 100% MOIST YELLOW SLOUGH - PERIWOUND UNREMARKABLE WITHOUT INDURATION, ALTHOUGH PT C/O TENDERNESS WHEN TOUCHED - CURRENTLY ON BARIATRIC MATTRESS - EDUCATED PT REGARDING OFFLOADING AND PREVENTION - UNDERSTOOD - PT REMAINS IN [facility] RECOMMENDATION: CONT USE OF NYSTATIN POWDER, ALTHOUGH CONSIDER CLEANSING WITH 1/4 STRENGTH MOIST DAKINS GAUZE PRIOR TO APPICATION, AND APPLY ABD PADS TO SKIN FOLDS TO WICK AWAY EXCESS MOISTURE - CLEANSE LEFT POSTERIOR THIGH WITH NS FB HYDROCOLLOID DRESSING Q 3 DAYS AND PRN - ENCOURAGE SIDELYING POSITION WIB, AND IF PT UNABLE TO LAY ON SIDELYING POSITION, APPLY PILLOWS UNDER HIPS TO REDUCE PRESSURE TO THE EFFECTED AREA PLEASE
[2016-03-20 09:21] VITALS: BP 138/84
--- NOTE | 2016-03-20 10:02 | Cons- Wound Care ---
General Information and HPI Consulting Request Date of Consult: 03/20/16 Requested By: KADEEM LOPEZ MD Reason for Consult: Venous stasis anterior abdominal ulcer and left posterior thigh ulcer present on admission History of Present Illness: Patient is 65-year-old with multiple medical problems morbid obesity immobility admitted for weight gain and congestive heart failure. Consultation is requested for a anterior abdominal ulcer and concern over possible ulcer over the left posterior thigh. Patient is on a offloading mattress Allergies/Medications Allergies: Coded Allergies: lisinopril (ABDOMINAL CRAMPING 01/25/16) oxycodone (From Percocet) (NAUSEA 01/25/16) Home Med List: Aclidinium [place] (Tudorza Pressair) 400 MCG/ACTUATION AER.POW.BA 1 PUFF INH BID COPD (Reported) Albuterol Sulfate (Ventolin) 1 UNIT PUF 2 PUF INH Q4 PRN WHEEZING Alprazolam 0.5 MG TABLET 1 TAB PO TIDPRN ANXIETY (Reported) Apixaban (Eliquis) 5 MG TABLET 5 MG PO BID afib Diltiazem Cd (Diltiazem ER) 120 MG CAP.ER.DEG 120 MG PO DAILY afib Furosemide 10 MG/ML VIAL 8 ML IV DAILY PRN Fluid retention Please give PRN ONLY for excessive weight gain from fluid retention or reduced O2 saturation. Clarify with profiling machine set up operator tool Dr. Hernadez before giving dose. Furosemide (Lasix) 80 MG TABLET 1 TAB PO BID heart Reason to Stop at ADM: IV Hydrocodone/Acetaminophen (Hydrocodon-Acetaminophn 10-325) 10 MG-325 MG TABLET 1 TAB PO TIDPRN PAIN (Reported) Metolazone 2.5 MG TABLET 1 TAB PO DAILY DIURETIC (Reported) Metoprolol Tartrate 50 MG TABLET 100 MG PO BID afib Potassium Chloride 20 MEQ TAB.ER.PRT 1 TAB PO BID SUPPLEMENT (Reported) Prednisone 20 MG TABLET 1 TAB PO BID RASH (Reported) Review of Systems Review of Systems: Noncontributory Past History Travel History Traveled to [place] past 21 day No Medical History Blood Transfusion Hx: No Neurological: NONE EENT: NONE Cardiovascular: AFIB, CHF, hypertension Respiratory: COPD Gastrointestinal: NONE Hepatic: NONE 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 Home Who Do You Live With? spouse Services at Home: Nursing Primary Language: Maori Smoking Status: Never Smoked ETOH Use: denies use Illicit Drug Use: denies illicit drug use Functional Ability ADLs Independent: dressing, eating, toileting, bathing. IADLs Independent: shopping, housework, finances, food prep, telephone, transportation , medication admin. 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 Exam & Diagnostic Data Vital Signs and I&O Vital Signs Result Date Time Pulse Ox 95 03/20 920 B/P 138/84 03/20 920 Temp 98.1 03/20 920 Pulse 119 03/20 920 Resp 18 03/20 920 O2 Delivery Nasal Cannula 03/20 0000 O2 Flow Rate 2.0L 03/20 0000 Intake & Output 03/20 0000 03/19 1600 03/19 0800 Intake Total 840 240 Output Total 1000 2200 1700 Balance -1000 -1360 -1460 Intake, Oral 840 240 Number 1 Bowel Movements Output, Urine 1000 2200 1700 Patient 412 lb 412 lb Weight Patient has evidence of chronic venous insufficiency and edema which appears to have resolved with bed rest there appears to be a small unstageable ulcer over the left posterior thigh measuring several millimeters present on admission over the anterior abdominal wall is a approximately 1 x 0.8 cm ulcer with minimally red fill this is due to to scratching of the area by the patient. There are intertriginous areas of candidal dermatitis. Assessment/Plan Impression/Plan: 65-year-old woman with morbid obesity admitted with congestive heart failure chronic edema appears improved there is a small unstageable ulcer over the left posterior thigh which can be treated with barrier cream the anterior abdominal ulcer can be cleansed of dry slough treated with daily Xeroform Consult Acknowledgment - Thank you for your consult request.
--- NOTE | 2016-03-20 10:32 | PN- Pulmonary ---
Subjective HPI/Critical Care Issues: pt seen and examined +nausea +vomiting +garzon no hemoptysis no dyspnea at rest feels better coffee ground and foot contents feels relief after emesis no fevers or chills Objective Current Medications: Current Medications Sig/Jackson Start time Last Medication Dose Route Stop Time Status Admin Acetaminophen 650 MG Q6P PRN 03/18 2044 AC PO Acetaminophen/ 1 TAB Q8P PRN 03/18 2030 AC 03/19 Hydrocodone Bitart PO 1328 Albuterol Sulfate 3 ML BID 03/18 2200 AC 03/19 INH 1037 Alprazolam 0.5 MG TID PRN 03/18 1800 AC PO 03/25 1759 Apixaban 5 MG BID 03/18 2200 DC 03/19 PO 1034 Bumetanide 2 MG DAILY 03/20 1000 AC 03/20 IV 0829 Bumetanide 1 MG ONCE ONE 03/19 1100 DC 03/19 IV 03/19 1101 1205 Bumetanide 1 MG DAILY 03/18 2026 DC 03/19 IV 1036 Diltiazem HCl 240 MG DAILY 03/20 1000 CAN PO Diltiazem HCl 125 MG Q24H 03/19 2130 AC 03/19 Sodium Chloride 100 ML IV 2140 Diltiazem HCl 10 MG ONCE ONE 03/19 2115 DC 03/19 IV 03/19 211 2130 Diltiazem HCl 120 MG DAILY 03/19 1000 DC 03/19 PO 1034 Ipratropium [place] 2.5 ML BID 03/18 2200 AC 03/19 INH 1037 Methylprednisolone 20 MG Q12 03/20 1000 CAN IV Metoclopramide HCl 10 MG ONCE ONE 03/19 1715 DC 03/19 IV 03/19 1716 1749 Metolazone 2.5 MG DAILY 03/19 1000 AC 03/19 PO 1035 Metoprolol Tartrate 100 MG BID 03/19 1047 AC 03/19 PO 1205 Nystatin 1 CORBY TIDPRN PRN 03/18 2245 AC TOP Ondansetron HCl 4 MG Q6 03/19 2037 AC 03/20 IV 0600 Ondansetron HCl 4 MG ONCE ONE 03/19 1545 DC 03/19 IV 03/19 1546 1553 Oxycodone/ 2 TAB Q6P PRN 03/18 2045 AC Acetaminophen PO Pantoprazole Sodium 40 MG BID 03/20 1000 AC 03/20 IV 0828 Pantoprazole Sodium 40 MG ONCE ONE 03/19 1745 DC 03/19 IV 03/19 1746 1759 Potassium Chloride 10 MEQ Q1H 03/20 0745 DC 03/20 IV 03/20 0846 0827 Prednisone 20 MG BID 03/20 1000 AC PO Prednisone 20 MG BID 03/18 2200 DC 03/19 PO 1035 Prochlorperazine 10 MG ONCE ONE 03/19 1745 DC 03/19 IM 03/19 1746 1759 Senna/Docusate Sodium 1 TAB AT BEDTIME PRN 03/18 2045 AC PO Sodium Hypochlorite 1 CORBY Q6-PRN PRN 03/19 1330 AC TOP Vital Signs & I&O Last 24 Hrs of Vitals and I&O: Vital Signs Date Time Temp Pulse Resp B/P Pulse O2 O2 Flow FiO2 Ox Delivery Rate 03/20 0921 98.1 119 18 138/84 95 03/20 0000 Nasal 2.0L Cannula 03/19 2200 98.0 112 20 130/80 95 Nasal 2.0L Cannula 03/19 2130 128 134/86 03/19 2100 97 Nasal 2.0L Cannula 03/19 1702 98.5 128 20 134/86 95 Nasal 2.0L Cannula 03/19 1600 96 Nasal 2.0L Cannula 03/19 1205 135 120/60 03/19 1038 100 Nasal 2.5L Cannula Intake & Output 03/20 1600 03/20 0800 03/20 0000 Intake Total Output Total 900 1000 Balance -900 -1000 Output, Urine 900 1000 Patient 395 lb Weight Exam Other Physical Findings: General - Alert, awake and oriented HEENT - normocephalic, atraumatic Cardiovascular - S1, S2 Lungs - diminished bs at bases Abdomen - soft, bowel sounds positive, no tenderness Extremities - significant edema Results Last 24 Hrs of Lab Results: Laboratory Tests 03/20/16 0600: CBC w Diff Cancelled, WBC Cancelled, RBC Cancelled, Hgb Cancelled, Hct Cancelled , MCV Cancelled, MCH Cancelled, RDW Cancelled, Plt Count Cancelled, MPV Cancelled, PUBS MCHC Cancelled 03/20/16 0510: Anion Gap 12, Estimated GFR 56 L, BUN/Creatinine Ratio 29.0 H, Magnesium 2.0, Amylase < 30 L, Lipase 131, CBC w Diff NO MAN DIFF REQ, RBC 5.02, MCV 80.2 L, MCH 26.7 L, RDW 20.1 H, MPV 7.8, Gran % 78.4 H, Lymphocytes % 12.8 L, Monocytes % 7.9, Eosinophils % 0.5, Basophils % 0.4, Absolute Granulocytes 11.4 H, Absolute Lymphocytes 1.9, Absolute Monocytes 1.1 H, Absolute Eosinophils 0.1 , Absolute Basophils 0.1, PUBS MCHC 33.3 03/19/162049: Troponin I 0.03, PT 13.2 H, INR 1.26 H 03/19/161729: CBC w Diff MAN DIFF ORDERED, RBC 5.53 H, MCV 80.4 L, MCH 26.3 L, RDW 20.2 H, MPV 7.7, Gran % 88.2 H, Lymphocytes % 7.8 L, Monocytes % 3.6, Eosinophils % 0.1, Basophils % 0.3, Absolute Granulocytes 14.3 H, Segmented Neutrophils 86 H , Band Neutrophils 2, Absolute Lymphocytes 1.3, Lymphocytes 8 L, Monocytes 3, Absolute Monocytes 0.6, Absolute Eosinophils 0, Basophils 1, Absolute Basophils 0.1, Platelet Estimate ADEQUATE, Normochromic RBCs VERIFIED, Anisocytosis 1+, PUBS MCHC 32.7 L Impression/Plan Impression/Plan Impression/Plan: Impression 64-year-old woman with significant past medical history of stage II diastolic dysfunction, hypertension, obesity hypoventilation and morbid obesity. Systolic and diastolic heart failure with some evidence of pulmonary hypertension. Unlikely COPD, more likely reactive airway disease (asthma as a child). Plan - reluctant to undergo a sleep evaluation, but will consider it as an outpatient , I provided my contact information to her - PFTs are unlikely to be performed due to logistics, she certainly will have a restrictive lung disease component, will consider as outpatient - would taper steroids quickly, give 20mg x 3 days then stop - diuresis/ins and outs, f/u cardiology - pt on tudorza at home, this may need to be changed based on her outcome - TRC/Nebs - dvt prophylaxis at all times GI workup per primary team Thank you in allowing me to participate in the care of this patient. I will continue to follow along with the patient's progress. Please do not hesitate to call about any questions or issues.
--- NOTE | 2016-03-20 11:39 | PN- Infect Dx ---
Subjective Subjective: Afebrile on steroids. She feels improved with less shortness of breath, has had several episodes of vomiting since yesterday afternoon. She denies any abdominal pain. She has lost over 15 pounds since admission. Objective Last 24 Hrs of Vital Signs/I&O Vital Signs Date Time Temp Pulse Resp B/P Pulse O2 O2 Flow FiO2 Ox Delivery Rate 03/20 1101 94 Nasal 2.0L Cannula 03/20 1057 126/60 03/20 0921 98.1 119 18 138/84 95 03/20 0813 94 Nasal 2.0L Cannula 03/20 0000 Nasal 2.0L Cannula 03/19 2200 98.0 112 20 130/80 95 Nasal 2.0L Cannula 03/19 2130 128 134/86 03/19 2100 97 Nasal 2.0L Cannula 03/19 1702 98.5 128 20 134/86 95 Nasal 2.0L Cannula 03/19 1600 96 Nasal 2.0L Cannula 03/19 1205 135 120/60 Intake & Output 03/20 1600 03/20 0800 03/20 0000 Intake Total Output Total 900 1000 Balance -900 -1000 Output, Urine 900 1000 Patient 395 lb Weight Physical Exam Other Physical Findings: She appears more comfortable in no acute distress Lungs are clear Heart regular rhythm with no murmur Extremities bilateral lower extremity edema, with no significant erythema or tenderness Roth catheter remains in place Results Last 24 Hours of Lab Results: Laboratory Tests 03/20 03/20 03/19 0600 0510 0 Chemistry Sodium (137 - 145 mmol/L) 142 Potassium (3.5 - 5.1 mmol/L) 3.3 L Chloride (98 - 107 mmol/L) 94 L Carbon Dioxide (22 - 30 mmol/L) 36 H Anion Gap (5 - 16) 12 BUN (7 - 17 mg/dL) 29 H Creatinine (0.5 - 1.0 mg/dL) 1.0 Estimated GFR (>60 ml/min) 56 L BUN/Creatinine Ratio (7 - 25 %) 29.0 H Magnesium (1.6 - 2.3 mg/dL) 2.0 Troponin I (< 0.11 ng/ml) 0.03 Amylase (30 - 110 U/L) < 30 L Lipase (23 - 300 U/L) 131 Coagulation PT (9.4 - 12.5 SEC) 13.2 H INR (0.90 - 1.19) 1.26 H Hematology CBC w Diff Cancelled NO MAN DIFF REQ WBC (4.8 - 10.8 /CUMM) Cancelled 14.6 H RBC (4.20 - 5.40 /CUMM) Cancelled 5.02 Hgb (12.0 - 16.0 G/DL) Cancelled 13.4 Hct (37 - 47 %) Cancelled 40.2 MCV (81.0 - 99.0 FL) Cancelled 80.2 L MCH (27.0 - 31.0 PG) Cancelled 26.7 L RDW (11.5 - 14.5 %) Cancelled 20.1 H Plt Count (130 - 400 /CUMM) Cancelled 245 MPV (7.4 - 10.4 FL) Cancelled 7.8 Gran % (42.2 - 75.2 %) 78.4 H Lymphocytes % (20.5 - 51.1 %) 12.8 L Monocytes % (1.7 - 9.3 %) 7.9 Eosinophils % (0 - 5 %) 0.5 Basophils % (0.0 - 2.0 %) 0.4 Absolute Granulocytes (1.4 - 6.5 /CUMM) 11.4 H Absolute Lymphocytes (1.2 - 3.4 /CUMM) 1.9 Absolute Monocytes (0.10 - 0.60 /CUMM) 1.1 H Absolute Eosinophils (0.0 - 0.7 /CUMM) 0.1 Absolute Basophils (0.0 - 0.2 /CUMM) 0.1 PUBS MCHC (33.0 - 37.0 G/DL) Cancelled 33.3 03/19 1730 Hematology CBC w Diff MAN DIFF ORDERED WBC (4.8 - 10.8 /CUMM) 16.2 H RBC (4.20 - 5.40 /CUMM) 5.53 H Hgb (12.0 - 16.0 G/DL) 14.5 Hct (37 - 47 %) 44.5 MCV (81.0 - 99.0 FL) 80.4 L MCH (27.0 - 31.0 PG) 26.3 L RDW (11.5 - 14.5 %) 20.2 H Plt Count (130 - 400 /CUMM) 280 MPV (7.4 - 10.4 FL) 7.7 Gran % (42.2 - 75.2 %) 88.2 H Lymphocytes % (20.5 - 51.1 %) 7.8 L Monocytes % (1.7 - 9.3 %) 3.6 Eosinophils % (0 - 5 %) 0.1 Basophils % (0.0 - 2.0 %) 0.3 Absolute Granulocytes (1.4 - 6.5 /CUMM) 14.3 H Segmented Neutrophils (42.2 - 75.2 %) 86 H Band Neutrophils (0.0 - 5.0 %) 2 Absolute Lymphocytes (1.2 - 3.4 /CUMM) 1.3 Lymphocytes (20.5 - 51.1 %) 8 L Monocytes (1.7 - 9.3 %) 3 Absolute Monocytes (0.10 - 0.60 /CUMM) 0.6 Absolute Eosinophils (0.0 - 0.7 /CUMM) 0 Basophils (0.0 - 2.0 %) 1 Absolute Basophils (0.0 - 0.2 /CUMM) 0.1 Platelet Estimate (ADEQUATE) ADEQUATE Normochromic RBCs VERIFIED Anisocytosis 1+ PUBS MCHC (33.0 - 37.0 G/DL) 32.7 L Last 24 Hours of Stephen Results: Urine culture March 18 negative Recent Imaging Studies: Abdominal x-ray March 19 nonobstructive bowel pattern Assessment/Plan Impression: Improved overall with significant diuresis and weight loss on IV Bumex and po Zaroxolyn. She remains afebrile (on steroids) with persistent leukocytosis, likely secondary to the steroids. Her recent vomiting is of unclear etiology and may require further evaluation. Suggestion: 1. Further management of her CHF per Cardiology 2. Consider a suprapubic cystostomy if feel that she will quite require a long- term indwelling urinary catheter 3. Continue topical antifungal treatment to the groin and other intertriginous areas 4. Continue to follow off antibiotics
--- NOTE | 2016-03-20 12:57 | PN- Cardiology ---
Subjective Subjective: The patient had some nausea and vomiting yesterday. This apparently was guaiac positive. At that point her Eliquis was placed on hold. Her oral medications were held and she was started on a Cardizem drip for rate control. Today she is feeling much better and has been placed on liquid diet. She is to be seen by GI. She was given her metoprolol this morning and her Cardizem drip has been increased. She is now on Bumex IV. She has significant negative fluid balance. She was also given metolazone. Objective Vital Signs and I&Os Vital Signs Date Time Temp Pulse Resp B/P Pulse O2 O2 Flow FiO2 Ox Delivery Rate 03/20 1101 94 Nasal 2.0L Cannula 03/20 1057 126/60 03/20 0921 98.1 119 18 138/84 95 03/20 0813 94 Nasal 2.0L Cannula 03/20 0000 Nasal 2.0L Cannula 03/19 2200 98.0 112 20 130/80 95 Nasal 2.0L Cannula 03/19 2130 128 134/86 03/19 2100 97 Nasal 2.0L Cannula 03/19 1702 98.5 128 20 134/86 95 Nasal 2.0L Cannula 03/19 1600 96 Nasal 2.0L Cannula Intake & Output 03/20 1600 03/20 0800 03/20 0000 03/19 1600 03/19 0800 03/19 0000 Intake Total 840 240 480 Output Total 900 1000 2200 1700 3100 Balance -900 -1000 -1360 -1460 -2620 Intake, Oral 840 240 480 Number 1 0 Bowel Movements Output, Urine 900 1000 2200 1700 3100 Patient 395 lb 412 lb 412 lb 409 lb Weight Physical Exam: On exam she is comfortable to HEENT exam is normal Chest reveals decreased breath sounds Heart is irregular moderate rate Extremities reveal chronic edema Abdomen is nontender Assessment/Plan Assessment/Plan The patient had some nausea and vomiting and had guaiac positive vomitus. She is being evaluated by GI. In the meantime she is on a Cardizem drip. Will just continue this pending the further GI workup. We will hold her Eliquis until decision is made regarding her GI status. If cleared by GI we will resume her metoprolol and Cardizem orally. Continue telemetry? Yes
--- NOTE | 2016-03-20 14:36 | Cons- Gastroenterology ---
General Information and HPI Consulting Request Date of Consult: 03/20/16 Requested By: KADEEM LOPEZ MD Reason for Consult: Hematemesis, nausea Source of Information: patient Exam Limitations: no limitations History of Present Illness: Ms. Lester is a 65 year old female with multiple medical problem who presented to on 03/17/15 for worsening SOB for which she was admitted for a COPD/CHF exacerbation. She has been getting IV steroids, nebulizer treatments, IV diuresis and antibiotics with improvement in her respiratory status since admission. Yesterday afternoon she developed nausea and vomiting. She vomited hourly throughout the night and she she described it as brown fluid. She did not see any bright red blood or clots and she hasn't had any melena or brbpr. She has been hemodynamically stable since the vomiting started. She was given zofran, IV protonix without much benefit. Her Eliquis has also been held. She started 'nibbling' on food this am which has improved the nausea a bit and she hasn't had any vomiting since this morning. She has been without any abdominal pain or fevers and her breathing has not worsened. She has been without any heartburn, abdominal pain with eating or any irregular bowel movements. Her hgb has remained stable. Allergies/Medications Allergies: Coded Allergies: lisinopril (ABDOMINAL CRAMPING 01/25/16) oxycodone (From Percocet) (NAUSEA 01/25/16) Home Med List: Aclidinium [place] (Tudorza Pressair) 400 MCG/ACTUATION AER.POW.BA 1 PUFF INH BID COPD (Reported) Albuterol Sulfate (Ventolin) 1 UNIT PUF 2 PUF INH Q4 PRN WHEEZING Alprazolam 0.5 MG TABLET 1 TAB PO TIDPRN ANXIETY (Reported) Apixaban (Eliquis) 5 MG TABLET 5 MG PO BID afib Bumetanide 2 MG TABLET 1 TAB PO DAILY FLUID RETENTION Diltiazem HCl (Cardizem Cd) 240 MG CAP.ER.24H 240 MG PO DAILY Heart Rate Control Hydrocodone/Acetaminophen (Hydrocodon-Acetaminophn 10-325) 10 MG-325 MG TABLET 1 TAB PO TIDPRN PAIN (Reported) Metolazone 2.5 MG TABLET 1 TAB PO DAILY DIURETIC (Reported) Metoprolol Tartrate 50 MG TABLET 100 MG PO BID afib Potassium Chloride 20 MEQ TAB.ER.PRT 2 TAB PO BID SUPPLEMENT (Reported) Prednisone 20 MG TABLET 1 TAB PO BID RASH (Reported) Current Medications: Current Medications Sig/Jackson Start time Last Medication Dose Route Stop Time Status Admin Acetaminophen 650 MG Q6P PRN 03/18 2045 AC PO Acetaminophen/ 1 TAB Q8P PRN 03/18 2030 AC 03/19 Hydrocodone Bitart PO 1328 Albuterol Sulfate 3 ML BID 03/18 2200 AC 03/19 INH 1037 Alprazolam 0.5 MG TID PRN 03/18 1800 AC PO 03/25 1759 Apixaban 5 MG BID 03/18 2200 DC 03/19 PO 1034 Bumetanide 2 MG DAILY 03/20 1000 AC 03/20 IV 0829 Diltiazem HCl 125 MG Q16H 03/20 1300 AC Sodium Chloride 100 ML IV Diltiazem HCl 240 MG DAILY 03/20 1000 CAN PO Diltiazem HCl 125 MG Q24H 03/19 2130 DC 03/19 Sodium Chloride 100 ML IV 2140 Diltiazem HCl 10 MG ONCE ONE 03/19 2115 DC 03/19 IV 03/19 2116 2130 Ipratropium [place] 2.5 ML BID 03/18 2200 AC 03/19 INH 1037 Methylprednisolone 20 MG Q12 03/20 1000 CAN IV Metoclopramide HCl 10 MG ONCE ONE 03/19 1715 DC 03/19 IV 03/19 1716 1749 Metolazone 2.5 MG DAILY 03/19 1000 AC 03/20 PO 1058 Metoprolol Tartrate 100 MG BID 03/19 1047 AC 03/20 PO 1057 Nystatin 1 CORBY TIDPRN PRN 03/18 2245 AC TOP Ondansetron HCl 4 MG Q6 03/19 2037 AC 03/20 IV 1103 Ondansetron HCl 4 MG ONCE ONE 03/19 1545 DC 03/19 IV 03/19 1546 1553 Oxycodone/ 2 TAB Q6P PRN 03/18 2045 AC Acetaminophen PO Pantoprazole Sodium 40 MG BID 03/20 1000 AC 03/20 IV 0828 Pantoprazole Sodium 40 MG ONCE ONE 03/19 1745 DC 03/19 IV 03/19 1746 1759 Patient Medication 1 ED .STK-MED ONE 03/20 1308 DC Teaching ED 03/20 1309 Potassium Chloride 10 MEQ Q1H 03/20 0745 DC 03/20 IV 03/20 0846 1056 Prednisone 20 MG BID 03/20 1000 AC 03/20 PO 1056 Prednisone 20 MG BID 03/18 2200 DC 03/19 PO 1035 Prochlorperazine 10 MG ONCE ONE 03/19 1745 DC 03/19 IM 03/19 1746 1759 Senna/Docusate Sodium 1 TAB AT BEDTIME PRN 03/18 2045 AC PO Sodium Hypochlorite 1 CORBY Q6-PRN PRN 03/19 1330 AC TOP Past History Travel History Traveled to [place] past 21 day No Medical History Blood Transfusion Hx: No Neurological: NONE EENT: NONE Cardiovascular: AFIB, CHF, hypertension Respiratory: COPD Gastrointestinal: NONE Hepatic: NONE 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 Home Who Do You Live With? spouse Services at Home: Nursing Primary Language: [place] Smoking Status: Never Smoked ETOH Use: denies use Illicit Drug Use: denies illicit drug use Functional Ability ADLs Independent: dressing, eating, toileting, bathing. IADLs Independent: shopping, housework, finances, food prep, telephone, transportation , medication admin. 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 EENTM: Denies: no symptoms. Cardiovascular: Reports: edema, peripheral edema. Respiratory: Reports: short of breath, sputum production. GI: Reports: see HPI. Genitourinary: Denies: no symptoms. Musculoskeletal: Reports: muscle pain. Skin: Denies: no symptoms. Neurological/Psychological: Denies: no symptoms. Hematologic/Endocrine: Denies: no symptoms. Immunologic/Allergic: Denies: no symptoms. All Other Systems: Reviewed and Negative Exam & Diagnostic Data Vital Signs and I&O Vital Signs Date Time Temp Pulse Resp B/P Pulse O2 O2 Flow FiO2 Ox Delivery Rate 03/20 1101 94 Nasal 2.0L Cannula 03/20 1057 126/60 03/20 0921 98.1 119 18 138/84 95 03/20 0813 94 Nasal 2.0L Cannula 03/20 0000 Nasal 2.0L Cannula 03/19 2200 98.0 112 20 130/80 95 Nasal 2.0L Cannula 03/19 2130 128 134/86 03/19 2100 97 Nasal 2.0L Cannula 03/19 1702 98.5 128 20 134/86 95 Nasal 2.0L Cannula 03/19 1600 96 Nasal 2.0L Cannula Intake & Output 03/20 04003/19 040 Intake Total 1080 480 Output Total 900 1000 3900 3100 Balance -900 -1000 -2820 -2620 Intake, Oral 1080 480 Number 1 0 Bowel Movements Output, Urine 900 1000 3900 3100 Patient 395 lb 412 lb 409 lb 409 lb Weight Physical Exam General Appearance: well developed/nourished, no apparent distress, obese Head: atraumatic, normal appearance Eyes: Bilateral: normal appearance. Ears, Nose, Throat: normal pharynx, normal ENT inspection Neck: normal inspection, supple, full range of motion Respiratory: chest non-tender, no respiratory distress, decreased breath sounds Cardiovascular: irregularly irregular Gastrointestinal: normal bowel sounds, soft Rectal: deferred Back: normal inspection Extremities: pedal edema Skin: intact, normal color, warm/dry Results Pertinent Lab Results: Laboratory Tests 03/20 03/20 03/19 0600 0510 0 Chemistry Sodium (137 - 145 mmol/L) 142 Potassium (3.5 - 5.1 mmol/L) 3.3 L Chloride (98 - 107 mmol/L) 94 L Carbon Dioxide (22 - 30 mmol/L) 36 H Anion Gap (5 - 16) 12 BUN (7 - 17 mg/dL) 29 H Creatinine (0.5 - 1.0 mg/dL) 1.0 Estimated GFR (>60 ml/min) 56 L BUN/Creatinine Ratio (7 - 25 %) 29.0 H Magnesium (1.6 - 2.3 mg/dL) 2.0 Troponin I (< 0.11 ng/ml) 0.03 Amylase (30 - 110 U/L) < 30 L Lipase (23 - 300 U/L) 131 Coagulation PT (9.4 - 12.5 SEC) 13.2 H INR (0.90 - 1.19) 1.26 H Hematology CBC w Diff Cancelled NO MAN DIFF REQ WBC (4.8 - 10.8 /CUMM) Cancelled 14.6 H RBC (4.20 - 5.40 /CUMM) Cancelled 5.02 Hgb (12.0 - 16.0 G/DL) Cancelled 13.4 Hct (37 - 47 %) Cancelled 40.2 MCV (81.0 - 99.0 FL) Cancelled 80.2 L MCH (27.0 - 31.0 PG) Cancelled 26.7 L RDW (11.5 - 14.5 %) Cancelled 20.1 H Plt Count (130 - 400 /CUMM) Cancelled 245 MPV (7.4 - 10.4 FL) Cancelled 7.8 Gran % (42.2 - 75.2 %) 78.4 H Lymphocytes % (20.5 - 51.1 %) 12.8 L Monocytes % (1.7 - 9.3 %) 7.9 Eosinophils % (0 - 5 %) 0.5 Basophils % (0.0 - 2.0 %) 0.4 Absolute Granulocytes (1.4 - 6.5 /CUMM) 11.4 H Absolute Lymphocytes (1.2 - 3.4 /CUMM) 1.9 Absolute Monocytes (0.10 - 0.60 /CUMM) 1.1 H Absolute Eosinophils (0.0 - 0.7 /CUMM) 0.1 Absolute Basophils (0.0 - 0.2 /CUMM) 0.1 PUBS MCHC (33.0 - 37.0 G/DL) Cancelled 33.3 03/19 03/19 1730 0620 Chemistry Sodium (137 - 145 mmol/L) 139 Potassium (3.5 - 5.1 mmol/L) 5.0 Chloride (98 - 107 mmol/L) 96 L Carbon Dioxide (22 - 30 mmol/L) 32 H Anion Gap (5 - 16) 12 BUN (7 - 17 mg/dL) 27 H Creatinine (0.5 - 1.0 mg/dL) 1.1 H Estimated GFR (>60 ml/min) 50 L BUN/Creatinine Ratio (7 - 25 %) 24.5 Troponin I (< 0.11 ng/ml) 0.03 Hematology CBC w Diff MAN DIFF ORDERED NO MAN DIFF REQ WBC (4.8 - 10.8 /CUMM) 16.2 H 13.8 H RBC (4.20 - 5.40 /CUMM) 5.53 H 5.06 Hgb (12.0 - 16.0 G/DL) 14.5 13.5 Hct (37 - 47 %) 44.5 40.8 MCV (81.0 - 99.0 FL) 80.4 L 80.7 L MCH (27.0 - 31.0 PG) 26.3 L 26.8 L RDW (11.5 - 14.5 %) 20.2 H 20.4 H Plt Count (130 - 400 /CUMM) 280 256 MPV (7.4 - 10.4 FL) 7.7 7.8 Gran % (42.2 - 75.2 %) 88.2 H 90.0 H Lymphocytes % (20.5 - 51.1 %) 7.8 L 6.6 L Monocytes % (1.7 - 9.3 %) 3.6 3.3 Eosinophils % (0 - 5 %) 0.1 0.1 Basophils % (0.0 - 2.0 %) 0.3 0 L Absolute Granulocytes (1.4 - 6.5 /CUMM) 14.3 H 12.4 H Segmented Neutrophils (42.2 - 75.2 %) 86 H Band Neutrophils (0.0 - 5.0 %) 2 Absolute Lymphocytes (1.2 - 3.4 /CUMM) 1.3 0.9 L Lymphocytes (20.5 - 51.1 %) 8 L Monocytes (1.7 - 9.3 %) 3 Absolute Monocytes (0.10 - 0.60 /CUMM) 0.6 0.5 Absolute Eosinophils (0.0 - 0.7 /CUMM) 0 0 Basophils (0.0 - 2.0 %) 1 Absolute Basophils (0.0 - 0.2 /CUMM) 0.1 0 Platelet Estimate (ADEQUATE) ADEQUATE Normochromic RBCs VERIFIED Anisocytosis 1+ PUBS MCHC (33.0 - 37.0 G/DL) 32.7 L 33.2 03/18 03/18 2215 1512 Chemistry Sodium (137 - 145 mmol/L) 136 L Potassium (3.5 - 5.1 mmol/L) 5.3 H Chloride (98 - 107 mmol/L) 98 Carbon Dioxide (22 - 30 mmol/L) 25 Anion Gap (5 - 16) 12 BUN (7 - 17 mg/dL) 24 H Creatinine (0.5 - 1.0 mg/dL) 0.9 Estimated GFR (>60 ml/min) > 60 BUN/Creatinine Ratio (7 - 25 %) 26.7 H Glucose (65 - 99 mg/dL) 170 H Calcium (8.4 - 10.2 mg/dL) 9.4 Total Bilirubin (0.2 - 1.3 mg/dL) 0.8 AST (14 - 36 U/L) 23 ALT (9 - 52 U/L) 54 H Alkaline Phosphatase (<127 U/L) 78 Troponin I (< 0.11 ng/ml) 0.02 0.02 [id number] Pept (<125 pg/mL) 2500 H Total Protein (6.3 - 8.2 g/dL) 7.0 Albumin (3.5 - 5.0 g/dL) 4.0 Globulin (1.9 - 4.2 gm/dL) 3.0 Albumin/Globulin Ratio (1.1 - 2.2 %) 1.3 Hematology CBC w Diff MAN DIFF ORDERED WBC (4.8 - 10.8 /CUMM) 16.3 H RBC (4.20 - 5.40 /CUMM) 5.18 Hgb (12.0 - 16.0 G/DL) 13.6 Hct (37 - 47 %) 41.8 MCV (81.0 - 99.0 FL) 80.8 L MCH (27.0 - 31.0 PG) 26.3 L RDW (11.5 - 14.5 %) 20.1 H Plt Count (130 - 400 /CUMM) 298 MPV (7.4 - 10.4 FL) 7.9 Gran % (42.2 - 75.2 %) 89.2 H Lymphocytes % (20.5 - 51.1 %) 6.1 L Monocytes % (1.7 - 9.3 %) 4.2 Eosinophils % (0 - 5 %) 0.3 Basophils % (0.0 - 2.0 %) 0.2 Absolute Granulocytes (1.4 - 6.5 /CUMM) 14.5 H Absolute Lymphocytes (1.2 - 3.4 /CUMM) 1.0 L Absolute Monocytes (0.10 - 0.60 /CUMM) 0.7 H Absolute Eosinophils (0.0 - 0.7 /CUMM) 0 Absolute Basophils (0.0 - 0.2 /CUMM) 0 Platelet Estimate (ADEQUATE) VERIFIED BY SMEAR Anisocytosis 1+ PUBS MCHC (33.0 - 37.0 G/DL) 32.6 L Assessment/Plan Assessment/Recommendations: Assessment: Ms Lester is a 65 year old female with end stage COPD, CHF and morbid obesity who is currently admitted for a COPD/CHF exacerbation from which she has been doing well with steroids, nebulizer treatments and IV diuresis who developed coffee ground emesis and nausea yesterday, but she has been without evidence of signficant GI blood loss as her hgb has been stable and she has been without gross hematemesis or melena. The etiology of her vomiting/hematemesis isn't clear, but as she is no longer vomiting and is without evidence of ongoing blood loss I don't feel an EGD is absolutely necessary. 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 The differential diagnosis of her vomiting/hematemesis includes PUD (stress ulcers on steroids), GERD, a MW tear, bleeding from AVMs, or an occult GI malignancy, but considering she is unlikely to be a surgical candidate even if a malignancy is found I wouldn't puruse that diagnosis. Recommendations: 1. Advance diet as tolerated 2. Safe to resume Eliquis from a GI perspective. 3. Avoid NSAIDs 4. Anti-reflux measures, keep head of the bed elevated 5. Change to PO PPI 6. Notify GI for signs of hemodynamically significant bleeding. 7. Pt can follow up as an outpatient to give consideration for an endoscopic work up after her respiratory status has improved. Problem List: 1. Coffee ground emesis Copies To: HALIE LEONE,NELLIE Gibson Consult Acknowledgment - Thank you for your consult request.
[2016-03-20 16:53] VITALS: BP 136/68
[2016-03-21 00:22] VITALS: BP 130/80
--- NOTE | 2016-03-21 01:25 | NUR ---
APPX 0035, PT STATED SHE WAS HAVING GAS. NOTIFIED. TUMS ORDERED AND GIVEN.
--- NOTE | 2016-03-21 06:38 | PN- Housestaff ---
LINDA LEONE,[facility] 03/21/16 0637: Subjective Follow-up For: Recurrent fluid accumulation Reactive airway disease Coffee Ground Emesis Tele-Events Since Last Visit: A. Fib 103-116 No OE Subjective: Ms Lester was seen and examined this morning. She is resting comfortably in bed and states she feels remarkably better. She states that she no longer feels nauseaus and would be interested in eating something with a little more substance. The patient also states that she feels she has responded well to the diuretics. She is no longer on any supplementaol oxygen. The patient also states that she is no pain and is currently pain free. She denies any fever, chills, malaise or weakness. Review of Systems Constitutional: Reports: see HPI. Objective Last 24 Hrs of Vital Signs/I&O Vital Signs Date Time Temp Pulse Resp B/P Pulse O2 O2 Flow FiO2 Ox Delivery Rate 03/21 0022 99.1 118 22 130/80 93 Room Air 03/21 0000 Room Air 03/20 2205 106 112/0 03/20 1846 94 Room Air 03/20 1653 98.7 97 22 136/68 95 Nasal Cannula 03/20 1101 94 Nasal 2.0L Cannula 03/20 1057 126/60 03/20 0921 98.1 119 18 138/84 95 03/20 0813 94 Nasal 2.0L Cannula Intake & Output 03/21 0800 03/21 0000 03/20 1600 Intake Total 180 1480 Output Total 500 4250 Balance -320 -2770 Intake, IV 70 360 Intake, Oral 110 1120 Number 1 1 Bowel Movements Output, 100 Emesis Output, Urine 500 4150 Patient 177.355 kg Weight Physical Exam General Appearance: Alert, Oriented X3, Cooperative Cardiovascular: Normal S1, Normal S2, Irregular Rate and Rhythm Lungs: Clear to Auscultation Abdomen: Normal Bowel Sounds, Soft, No Tenderness Neurological: Normal Speech Extremities: Chronic Edema 2/2 to Stasis and lymphadenopathy. Current Medications: Current Medications Sig/Jackson Start time Last Medication Dose Route Stop Time Status Admin Acetaminophen 650 MG Q6P PRN 03/18 2045 AC PO Acetaminophen/ 1 TAB Q8P PRN 03/18 2030 AC 03/19 Hydrocodone Bitart PO 1328 Albuterol Sulfate 3 ML BID 03/18 2200 AC 03/19 INH 1037 Alprazolam 0.5 MG TID PRN 03/18 1800 AC PO 03/25 1759 Apixaban 5 MG BID 03/20 2200 AC 03/20 PO 2158 Bumetanide 2 MG DAILY 03/20 1000 AC 03/20 IV 0829 Calcium Carbonate 500 MG ONCE ONE 03/21 0045 DC 03/21 PO 03/21 0046 0046 Diltiazem HCl 240 MG DAILY 03/21 1000 AC PO Diltiazem HCl 125 MG Q16H 03/20 1300 AC 03/20 Sodium Chloride 100 ML IV 03/21 1000 1500 Diltiazem HCl 125 MG Q24H 03/19 2130 DC 03/19 Sodium Chloride 100 ML IV 2140 Ipratropium [place] 2.5 ML BID 03/18 2200 AC 03/19 INH 1037 Methylprednisolone 20 MG Q12 03/20 1000 CAN IV Metolazone 2.5 MG DAILY 03/19 1000 AC 03/20 PO 1058 Metoprolol Tartrate 100 MG BID 03/19 1047 AC 03/20 PO 2205 Nystatin 1 CORBY TIDPRN PRN 03/18 2245 AC TOP Omeprazole 40 MG DAILY AC 03/20 1542 AC 03/21 PO 0606 Ondansetron HCl 4 MG Q6 03/19 2037 AC 03/21 IV 0620 Oxycodone/ 2 TAB Q6P PRN 03/18 204 AC Acetaminophen PO Pantoprazole Sodium 40 MG BID 03/20 1000 DC 03/20 IV 0828 Patient Medication 1 ED .STK-MED ONE 03/20 1308 DC Teaching ED 03/20 1309 Potassium Chloride 10 MEQ Q1H 03/20 0745 DC 03/20 IV 03/20 0846 1056 Prednisone 20 MG BID 03/20 1000 AC 03/20 PO 2158 Prednisone 20 MG BID 03/18 2200 DC 03/19 PO 1035 Senna/Docusate Sodium 1 TAB AT BEDTIME PRN 03/18 2045 AC PO Sodium Hypochlorite 1 CORBY Q6-PRN PRN 03/19 1330 AC TOP Last 24 Hrs of Lab/Stephen Results Last 24 Hrs of Labs/Mics: Laboratory Tests 03/21/16 0730: CBC w Diff Pending, WBC Pending, RBC Pending, Hgb Pending, Hct Pending, MCV Pending, MCH Pending, RDW Pending, Plt Count Pending, MPV Pending, PUBS MCHC Pending 03/21/16 0630: Sodium Pending, Potassium Pending, Chloride Pending, Carbon Dioxide Pending, Anion Gap Pending, BUN Pending, Creatinine Pending, BUN/Creatinine Ratio Pending , Magnesium Pending Microbiology 03/20 1242 URINE ROUT: Urine Culture - COLB Assessment/Plan Assessment: This is a 65-year-old lady with past medical history of hypertension, chronic systolic CHF, COPD, obesity hypoventilation syndrome, atrial fibrillation on Eliquis, Psoriasis, seek ED stage IIIa who presented to the [facility] emergency department with worsening dyspnea.CHF versus COPD exacerbation. Patient is limited in terms of her extra care given the fact that she is only able to get around in an ambulance which causes a significant amount of limitations on her outpatient follow-up. #Acute CHF exacerbation in the setting of our atrial fibrillation with rapid ventricular rate versus bacterial infection Patient received 1 mg IV of budesonide, and subsequently second milligrams IV of budesonide today. Continued on 2 mg of IV budesonide from 03/20/2016. Patient currently responds well to diuretic. Currently -[id number] fluid balance, will likely change the patient to oral diuretics on 03/22/2016 and see how she responds if she responds well she can likely be discharged to a next 48 hours. BEP in a.m. #Hypokalemia Likely due to diuresis. Potassium this a.m. was 3.0. Patient was ordered potassium supplementation.Repeat the BEP ordered this evening at 1600 hrs. If patient has evidence of decreased potassium will likely top up to maintain minimum potassium levels of 3.5. #Coffee-ground emesis and nausea Formal GI consult obtained. Patient is not likely to go for endoscopy unless becomes hemodynamically unstable. Differentials include Layne-Mariscal tear versus bleeding from AVM versus peptic ulcer disease due to stress from hospitalization. Advancing tolerated diet as tolerated. PPIs changed to oral. Patient will be referred to GI service for outpatient follow-up.--> advancing to Full Diet this am #Reactive Airway disease Formal pulmonology consultation obtained this morning recommends steroid 20 mg prednisone for 3 days, today is day 3 of 20 mg steroid. IV Solu-Medrol 40 mg twice a day. TRC nebs. Maintain saturations above 92%. Patient states she is not on home oxygen however would benefit from supplemental oxygen via nasal cannula. #Obesity hypoventilation syndrome. BiPAP at night. Patient might be eligible for polysomnography as an outpatient. #Questionable worsening cellulitis Vs Intertriginous [place] Patient most likely has intertriginous [place] and will be continued on antifungal treatment. Patient also received a wound care consult: Recommend left posterior thigh which can be treated with barrier cream, anterior abdomen wall ulcer cleansed and daily Xeroform dressings. Patient did have an elevated white count (versus due to chronic steroid use) which could be attributed to cellulitis. Leg on the right was tender, erythematous and sensitive to touch. Given her body habitus it was difficult to do a complete exam however she denies any skin breakdown especially on any pressure points. Continue current management. Patient seems to be in less discomfort due to chronic [place] intertriginous areas. #Atrial fibrillation with RVR Patient tolerating Cardizem 240 mg by by mouth well. Patient's heart rate well controlled. Aim to keep a lot of beats per minute. Patient was started on Cardizem drip last evening (03/19/2016) due to hematemesis and patient had to be made nothing by mouth in anticipation that she may go for scope. Patient is currently at 7.5 mL per hour of Cardizem drip. Dose increased from 5 mL per hour of Cardizem drip this am. Patient will begin Cardizem P.O on 03/21/2016 an 1000. Once drip is discontinued. This was confirmed with pharmacy. Patient started on Cardizem this am, will titrates drip down as HR toleratres. Metoprolol 100 mg twice a day continued. Reception Clerk Dr. Hernadez of the patient and recommended that we can increase the patient's Cardizem to 240 mg daily. She will receive this medication from . In addition to the above the patient will also resume her dose of metoprolol 100 mg twice a day. Patient can continue to have Roth in place and likely will require a suprapubic catheter for longer term relief. Urology consult can be given upon discharge. Continue patient on Eliquis #Chronic leg venous stasis and edema. PT consult in a.m. Leg elevation #Diet Heart healthy #DVT prophylaxis Patient is on Eliquis #Code Full code Problem List: 1. Coffee ground emesis 2. Fluid overload 3. Skin rash 4. Afib 5. CHF exacerbation 6. Lymphedema 7. Morbid obesity 8. Shortness of breath Pain Ratin Pain Location: NA Pain Goal: Remain pain free Pain Plan: Tylenol PRN Tomorrow's Labs & Rationales: BEP: Monitor potassium levels in the setting of hypokalemia due to aggressive diuresis. CBC: Monitor H&H in the setting of previous episode of coffee-ground emesis. KADEEM LOPEZ MD 03/21/16 1513: Attending MD Review Statement Attending Statement Attending MD Statement: examined this patient, discuss w/resident/PA/SUPPLY PERSON, agreed w/resident/PA/SUPPLY PERSON, reviewed EMR data (avail), discussed with nursing, discussed with case mgmt, amended to note Attending Assessment/Plan: The patient was seen and discussed with house staff. Agree with plan of care as outlined.
[2016-03-21 07:59] VITALS: BP 112/64
[2016-03-21 08:29] LABS: ABSOLUTE BASOPHIL COUNT 0 /CUMM (0.0-0.2); ABSOLUTE EOSINOPHIL COUNT 0.1 /CUMM (0.0-0.7); ABSOLUTE GRANULOCYTE CT 14.3 /CUMM (1.4-6.5); BASOPHIL % 0.3 % (0.0-2.0); EOSINOPHIL % 0.4 % (0-5); GRANULOCYTE % 87.2 % (42.2-75.2); HEMATOCRIT 39.1 % (37-47); MEAN CORPUSCULAR HGB 26.7 PG (27.0-31.0); MEAN CORPUSCULAR HGB CONC 32.8 G/DL (33.0-37.0); MEAN CORPUSCULAR VOLUME 81.3 FL (81.0-99.0); PLATELET COUNT 231 /CUMM (130-400); RED BLOOD CELL CT 4.81 /CUMM (4.20-5.40)
[2016-03-21 09:28] LABS: WHITE BLOOD CELL COUNT 16.4 /CUMM (4.8-10.8)
--- NOTE | 2016-03-21 09:35 | PN- Cardiology ---
See Addendum Subjective Subjective: The patient is comfortable. She has not had any further GI symptoms. She is back on oral medications. GI has recommended no intervention and has cleared her for return to [facility]. She continues to diurese well. She has lost about 20 pounds. She is to be tapered off her Cardizem and restarted on PO Cardizem. Her heart rate is in the 90s to low 100s at this time. Objective Vital Signs and I&Os Vital Signs Date Time Temp Pulse Resp B/P Pulse O2 O2 Flow FiO2 Ox Delivery Rate 03/21 0927 114/66 03/21 0759 99.0 85 22 112/64 92 Room Air 03/21 0022 99.1 118 22 130/80 93 Room Air 03/21 0000 Room Air 03/20 2205 106 112/0 03/20 1846 94 Room Air 03/20 1653 98.7 97 22 136/68 95 Nasal Cannula 03/20 1101 94 Nasal 2.0L Cannula 03/20 1057 126/60 Intake & Output 03/21 1600 03/21 0800 03/21 0000 03/20 1600 03/20 0800 03/20 0000 Intake Total 180 1480 Output Total 500 4250 900 1000 Balance -320 -2770 -900 -1000 Intake, IV 70 360 Intake, Oral 110 1120 Number 1 1 Bowel Movements Output, 100 Emesis Output, Urine 500 4150 900 1000 Patient 391 lb 395 lb Weight Physical Exam: She is in no distress Chest reveals decreased breath sounds Heart reveals irregular rhythm Extremities reveal chronic edema Current Medications: Current Medications Sig/Jackson Start time Last Medication Dose Route Stop Time Status Admin Acetaminophen 650 MG Q6P PRN 03/18 2044 AC PO Acetaminophen/ 1 TAB Q8P PRN 03/18 2030 AC 03/19 Hydrocodone Bitart PO 1328 Albuterol Sulfate 3 ML BID 03/18 2199 AC 03/19 INH 1037 Alprazolam 0.5 MG TID PRN 03/18 1800 AC PO 03/25 1759 Apixaban 5 MG BID 03/20 2199 AC 03/21 PO 0927 Bumetanide 2 MG DAILY 03/20 1000 AC 03/21 IV 0927 Calcium Carbonate 500 MG .STK-MED ONE 03/21 0844 DC PO 03/21 0845 Calcium Carbonate 500 MG ONCE ONE 03/21 0045 DC 03/21 PO 03/21 0046 0046 Diltiazem HCl 240 MG DAILY 03/21 1000 AC 03/21 PO 0926 Diltiazem HCl 125 MG Q16H 03/20 1300 AC 03/20 Sodium Chloride 100 ML IV 03/21 1000 1500 Diltiazem HCl 125 MG Q24H 03/19 2130 DC 03/19 Sodium Chloride 100 ML IV 2140 Ipratropium [place] 2.5 ML BID 03/18 2200 AC 03/19 INH 1037 Methylprednisolone 20 MG Q12 03/20 1000 CAN IV Metolazone 2.5 MG DAILY 03/19 1000 AC 03/21 PO 0927 Metoprolol Tartrate 100 MG BID 03/19 1047 AC 03/21 PO 0927 Nystatin 1 CORBY TIDPRN PRN 03/18 2245 AC TOP Omeprazole 40 MG DAILY AC 03/20 1542 AC 03/21 PO 0606 Ondansetron HCl 4 MG Q6 03/19 2037 AC 03/21 IV 0620 Oxycodone/ 2 TAB Q6P PRN 03/18 204 AC Acetaminophen PO Pantoprazole Sodium 40 MG BID 03/20 1000 DC 03/20 IV 0828 Patient Medication 1 ED .STK-MED ONE 03/20 1308 DC Teaching ED 03/20 1309 Potassium Chloride 40 MEQ ONCE ONE 03/21 0915 DC PO 03/21 0916 Prednisone 20 MG BID 03/20 1000 AC 03/21 PO 0927 Senna/Docusate Sodium 1 TAB AT BEDTIME PRN 03/18 2045 AC PO Sodium Hypochlorite 1 CORBY Q6-PRN PRN 03/19 1330 AC TOP Results Last 48 Hrs of Labs/Mics: Laboratory Tests 03/21/16 0730: CBC w Diff NO MAN DIFF REQ, RBC 4.81, MCV 81.3, MCH 26.7 L, RDW 20.0 H, MPV 8.0, Gran % 87.2 H, Lymphocytes % 6.0 L, Monocytes % 6.1, Eosinophils % 0.4, Basophils % 0.3, Absolute Granulocytes 14.3 H, Absolute Lymphocytes 1.0 L, Absolute Monocytes 1.0 H, Absolute Eosinophils 0.1, Absolute Basophils 0, PUBS MCHC 32.8 L 03/21/16 0630: Anion Gap 16, Estimated GFR 45 L, BUN/Creatinine Ratio 21.7, Magnesium 1.9 03/20/16 0600: CBC w Diff Cancelled, WBC Cancelled, RBC Cancelled, Hgb Cancelled, Hct Cancelled , MCV Cancelled, MCH Cancelled, RDW Cancelled, Plt Count Cancelled, MPV Cancelled, PUBS MCHC Cancelled 03/20/16 0510: Anion Gap 12, Estimated GFR 56 L, BUN/Creatinine Ratio 29.0 H, Magnesium 2.0, Amylase < 30 L, Lipase 131, CBC w Diff NO MAN DIFF REQ, RBC 5.02, MCV 80.2 L, MCH 26.7 L, RDW 20.1 H, MPV 7.8, Gran % 78.4 H, Lymphocytes % 12.8 L, Monocytes % 7.9, Eosinophils % 0.5, Basophils % 0.4, Absolute Granulocytes 11.4 H, Absolute Lymphocytes 1.9, Absolute Monocytes 1.1 H, Absolute Eosinophils 0.1 , Absolute Basophils 0.1, [facility] MCHC 33.3 03/19/16 2050: Troponin I 0.03, PT 13.2 H, INR 1.26 H 03/19/16 1730: CBC w Diff MAN DIFF ORDERED, RBC 5.53 H, MCV 80.4 L, MCH 26.3 L, RDW 20.2 H, MPV 7.7, Gran % 88.2 H, Lymphocytes % 7.8 L, Monocytes % 3.6, Eosinophils % 0.1, Basophils % 0.3, Absolute Granulocytes 14.3 H, Segmented Neutrophils 86 H , Band Neutrophils 2, Absolute Lymphocytes 1.3, Lymphocytes 8 L, Monocytes 3, Absolute Monocytes 0.6, Absolute Eosinophils 0, Basophils 1, Absolute Basophils 0.1, Platelet Estimate ADEQUATE, Normochromic RBCs VERIFIED, Anisocytosis 1+, [facility] MCHC 32.7 L Assessment/Plan Assessment/Plan The patient had some nausea and vomiting and had guaiac positive vomitus yesterday. This has resolved. She did not drop her blood count. She has been cleared for return to [facility] by GI. Recommend: 1. Restart Cardizem, Lopressor, Eliquis 2. Continue IV diuretics. 3. Monitor BUN, creatinine, electrolytes 4. Consider for discharge when she reaches baseline weight and/or BUN starts to rise. 5. Consider short term home Roth for I&O monitoring, and possible suprapubic catheter if longer term monitoring is needed. Continue telemetry? Yes
--- NOTE | 2016-03-21 14:14 | PN- Infect Dx ---
Subjective Subjective: Afebrile on steroids. She offers no complaints, with no further vomiting. Objective Last 24 Hrs of Vital Signs/I&O Vital Signs Date Time Temp Pulse Resp B/P Pulse O2 O2 Flow FiO2 Ox Delivery Rate 03/21 1039 91 Room Air Room Air 03/21 0927 114/66 03/21 0759 99.0 85 22 112/64 92 Room Air 03/21 0022 99.1 118 22 130/80 93 Room Air 03/21 0000 Room Air 03/20 2205 106 112/0 03/20 1846 94 Room Air 03/20 1653 98.7 97 22 136/68 95 Nasal Cannula Intake & Output 03/21 1600 03/21 0800 03/21 0000 Intake Total 180 1480 Output Total 500 4250 Balance -320 -2770 Intake, IV 70 360 Intake, Oral 110 1120 Number 1 1 Bowel Movements Output, 100 Emesis Output, Urine 500 4150 Patient 391 lb Weight Physical Exam Other Physical Findings: She appears comfortable in no acute distress Lungs mild inspiratory wheezes bilaterally Heart irregular rhythm with no murmur Abdomen is obese, soft, with positive bowel sounds Extremities bilateral lower extremity edema, with no erythema or tenderness Roth catheter remains in place Results Last 24 Hours of Lab Results: Laboratory Tests 03/21 03/21 0730 0630 Chemistry Sodium (137 - 145 mmol/L) 139 Potassium (3.5 - 5.1 mmol/L) 3.0 L Chloride (98 - 107 mmol/L) 88 L Carbon Dioxide (22 - 30 mmol/L) 35 H Anion Gap (5 - 16) 16 BUN (7 - 17 mg/dL) 26 H Creatinine (0.5 - 1.0 mg/dL) 1.2 H Estimated GFR (>60 ml/min) 45 L BUN/Creatinine Ratio (7 - 25 %) 21.7 Magnesium (1.6 - 2.3 mg/dL) 1.9 Hematology CBC w Diff NO MAN DIFF REQ WBC (4.8 - 10.8 /CUMM) 16.4 H RBC (4.20 - 5.40 /CUMM) 4.81 Hgb (12.0 - 16.0 G/DL) 12.9 Hct (37 - 47 %) 39.1 MCV (81.0 - 99.0 FL) 81.3 MCH (27.0 - 31.0 PG) 26.7 L RDW (11.5 - 14.5 %) 20.0 H Plt Count (130 - 400 /CUMM) 231 MPV (7.4 - 10.4 FL) 8.0 Gran % (42.2 - 75.2 %) 87.2 H Lymphocytes % (20.5 - 51.1 %) 6.0 L Monocytes % (1.7 - 9.3 %) 6.1 Eosinophils % (0 - 5 %) 0.4 Basophils % (0.0 - 2.0 %) 0.3 Absolute Granulocytes (1.4 - 6.5 /CUMM) 14.3 H Absolute Lymphocytes (1.2 - 3.4 /CUMM) 1.0 L Absolute Monocytes (0.10 - 0.60 /CUMM) 1.0 H Absolute Eosinophils (0.0 - 0.7 /CUMM) 0.1 Absolute Basophils (0.0 - 0.2 /CUMM) 0 PUBS MCHC (33.0 - 37.0 G/DL) 32.8 L Last 24 Hours of Stephen Results: No recent cultures Assessment/Plan Impression: Overall improved with a significant diuresis, with a weight loss of over 20 pounds since admission, on IV Bumex and po Zaroxolyn. She remains afebrile (on steroids) with persistent leukocytosis, presumably secondary to the steroids. Her vomiting, with guaiac positive emesis, has apparently resolved, with H&H relatively stable and with GI evaluation noted. The recommendation has been made that she be discharged with a Roth catheter and have discussed this further with Cardiology. If this will be a long-term commitment then consideration of a suprapubic cystostomy would be appropriate. Suggestion: 1. Further management of her CHF per Cardiology 2. If she is discharged with a Roth catheter, and it is determined that she will need this long-term, would then consider a suprapubic cystostomy 3. Continue topical antifungal treatment to the groin and other intertriginous areas 4. Continue to follow off antibiotics Will no longer follow at this time, but please call with any questions
[2016-03-21 15:13] VITALS: BP 110/64
[2016-03-21 23:00] VITALS: BP 138/64
[2016-03-22 07:51] LABS: ABSOLUTE BASOPHIL COUNT 0 /CUMM (0.0-0.2); ABSOLUTE EOSINOPHIL COUNT 0 /CUMM (0.0-0.7); ABSOLUTE GRANULOCYTE CT 11.7 /CUMM (1.4-6.5); ABSOLUTE MONOCYTE COUNT 0.7 /CUMM (0.10-0.60); BASOPHIL % 0.1 % (0.0-2.0); EOSINOPHIL % 0.1 % (0-5); HEMATOCRIT 41.1 % (37-47); MEAN CORPUSCULAR HGB 27.1 PG (27.0-31.0); MEAN CORPUSCULAR HGB CONC 33.4 G/DL (33.0-37.0); MEAN CORPUSCULAR VOLUME 81.1 FL (81.0-99.0); MEAN PLATELET VOLUME 8.4 FL (7.4-10.4); PLATELET COUNT 218 /CUMM (130-400); RBC DISTRIBUTION WIDTH 19.7 % (11.5-14.5); RED BLOOD CELL CT 5.07 /CUMM (4.20-5.40); WHITE BLOOD CELL COUNT 13.5 /CUMM (4.8-10.8)
[2016-03-22 08:19] VITALS: BP 120/62
[2016-03-22 08:50] LABS: GRANULOCYTE % 86.9 % (42.2-75.2)
--- NOTE | 2016-03-22 14:00 | PN- Att Addend ---
Attending Addendum Attending Brief Note Patient seen and examined. Plan of care discussed with the medical team and the patient. Available lab work and radiology test reports were reviewed. Patient is lying in bed comfortably without any distress. She denies any acute dyspnea chest pain fever or chills. Vital Signs Date Time Temp Pulse Resp B/P Pulse O2 O2 Flow FiO2 Ox Delivery Rate 03/22 1022 120/62 03/22 0819 98.7 92 20 120/62 94 Room Air 03/21 2300 98.2 104 20 138/64 95 Room Air 03/21 2258 104 138/64 03/21 1513 98.7 108 22 110/64 94 Room Air Intake & Output 03/22 1600 03/22 0800 03/22 0000 Intake Total 240 400 Output Total 550 1000 Balance -310 -600 Intake, Oral 240 400 Output, Urine 550 1000 Patient 383 lb Weight Exam: General: Patient awake alert oriented without any distress CVS: S1 plus S2 without any murmur or gallops Chest: Few scattered crepitation without any wheeze. There is no respiratory distress. Abdomen: Soft nontender, bowel sound present, no guarding or rebound [employer]: Awake alert oriented without any focal neuro deficit and follows command appropriately Extremities: Bilateral 2+ edema; no clubbing or cyanosis noted Laboratory Tests 03/22 03/21 0600 1715 Chemistry Sodium (137 - 145 mmol/L) 138 138 Potassium (3.5 - 5.1 mmol/L) 3.5 3.4 L Chloride (98 - 107 mmol/L) 87 L 84 L Carbon Dioxide (22 - 30 mmol/L) 38 H 40 H Anion Gap (5 - 16) 13 14 BUN (7 - 17 mg/dL) 25 H 28 H Creatinine (0.5 - 1.0 mg/dL) 1.1 H 1.3 H Estimated GFR (>60 ml/min) 50 L 41 L BUN/Creatinine Ratio (7 - 25 %) 22.7 21.5 Magnesium (1.6 - 2.3 mg/dL) 1.9 Hematology CBC w Diff NO MAN DIFF REQ WBC (4.8 - 10.8 /CUMM) 13.5 H RBC (4.20 - 5.40 /CUMM) 5.07 Hgb (12.0 - 16.0 G/DL) 13.7 Hct (37 - 47 %) 41.1 MCV (81.0 - 99.0 FL) 81.1 MCH (27.0 - 31.0 PG) 27.1 RDW (11.5 - 14.5 %) 19.7 H Plt Count (130 - 400 /CUMM) 218 MPV (7.4 - 10.4 FL) 8.4 Gran % (42.2 - 75.2 %) 86.9 H Lymphocytes % (20.5 - 51.1 %) 7.7 L Monocytes % (1.7 - 9.3 %) 5.2 Eosinophils % (0 - 5 %) 0.1 Basophils % (0.0 - 2.0 %) 0.1 Absolute Granulocytes (1.4 - 6.5 /CUMM) 11.7 H Absolute Lymphocytes (1.2 - 3.4 /CUMM) 1.0 L Absolute Monocytes (0.10 - 0.60 /CUMM) 0.7 H Absolute Eosinophils (0.0 - 0.7 /CUMM) 0 Absolute Basophils (0.0 - 0.2 /CUMM) 0 PUBS MCHC (33.0 - 37.0 G/DL) 33.4 Assessment and problem list * Acute congestive heart failure diastolic * Morbid obesity * Anasarca and lymphedema * History of COPD * History of A. fib chronic * Acute renal failure gradually improving Plan * If agreed by cardiology consider switching IV Bumex to oral * If okay with cardiology patient can be discharged home either today or tomorrow
--- NOTE | 2016-03-22 14:46 | PN- Cardiology ---
Subjective Subjective: The patient continues to diurese. She is negative about 15 L. She is responding to IV diuretics. Her heart rate is improved. It is now in the 70s and 80s. She is now on diltiazem 240 mg daily and metoprolol 200 mg daily. Objective Vital Signs and I&Os Vital Signs Date Time Temp Pulse Resp B/P Pulse O2 O2 Flow FiO2 Ox Delivery Rate 03/22 1022 120/62 03/22 0819 98.7 92 20 120/62 94 Room Air 03/21 2300 98.2 104 20 138/64 95 Room Air 03/21 2258 104 138/64 03/21 1513 98.7 108 22 110/64 94 Room Air Intake & Output 03/22 1600 03/22 0800 03/22 0000 03/21 1600 03/21 0800 03/21 0000 Intake Total 240 400 076 652 3966 Output Total 550 1000 2800 500 4250 Balance -310 -600 -2370 -320 -2770 Intake, IV 30 70 360 Intake, Oral 240 400 805 831 9531 Number 1 1 1 Bowel Movements Output, 100 Emesis Output, Urine 550 1000 2800 500 4150 Patient 383 lb 391 lb Weight Physical Exam: She is in no distress HEENT exam is normal Chest reveals decreased breath sounds Heart reveals a regular rhythm with a normal rate Extremities reveal acute and chronic edema Current Medications: Current Medications Sig/Jackson Start time Last Medication Dose Route Stop Time Status Admin Acetaminophen 650 MG Q6P PRN 03/18 2045 AC PO Acetaminophen/ 1 TAB Q8P PRN 03/18 2030 AC 03/23 Hydrocodone Bitart PO 0041 Alprazolam 0.5 MG TID PRN 03/18 1800 AC 03/21 PO 03/25 1759 2258 Apixaban 5 MG BID 03/20 2200 AC 03/23 PO 0916 Bumetanide 2 MG DAILY 03/24 1000 AC PO Bumetanide 2 MG DAILY 03/20 1000 AC 03/23 IV 0908 Diltiazem HCl 240 MG DAILY 03/21 1000 AC 03/23 PO 0916 Magnesium Oxide 400 MG ONE ONE 03/23 0915 DC 03/23 PO 03/23 0916 0923 Magnesium Oxide 400 MG ONE ONE 03/22 1900 DC 03/22 PO 03/22 1901 2131 Metolazone 2.5 MG DAILY 03/19 1000 AC 03/23 PO 0916 Metoprolol Tartrate 100 MG BID 03/19 1047 AC 03/23 PO 0917 Nystatin 1 CORBY TIDPRN PRN 03/18 2245 DC 03/22 TOP 2134 Omeprazole 40 MG DAILY AC 03/20 1542 AC 03/23 PO 0615 Ondansetron HCl 4 MG Q6 PRN 03/21 1153 AC IV Oxycodone/ 2 TAB Q6P PRN 03/18 2045 AC Acetaminophen PO Potassium Chloride 20 MEQ DAILY 03/24 1000 AC PO Potassium Chloride 20 MEQ ONCE ONE 03/23 1130 DC 03/23 PO 03/23 1131 1220 Potassium Chloride 40 MEQ ONCE ONE 03/23 0930 DC 03/23 PO 03/23 0931 0924 Potassium Chloride 10 MEQ Q1H 03/23 0915 DC IV 03/23 1016 Prednisone 20 MG DAILY 03/23 1000 AC 03/23 PO 03/25 1001 0916 Prednisone 20 MG BID 03/20 1000 DC 03/22 PO 1023 Senna/Docusate Sodium 1 TAB AT BEDTIME PRN 03/18 2045 AC PO Sodium Hypochlorite 1 CORBY Q6-PRN PRN 03/19 1330 AC TOP Results Last 48 Hrs of Labs/Mics: Laboratory Tests 03/23/16 0620: Anion Gap 11, Estimated GFR 56 L, BUN/Creatinine Ratio 31.0 H, Magnesium 1.7, CBC w Diff NO MAN DIFF REQ, RBC 5.03, MCV 80.9 L, MCH 26.9 L, RDW 19.6 H, MPV 8.6, Gran % 76.2 H, Lymphocytes % 16.2 L, Monocytes % 6.3, Eosinophils % 0.9, Basophils % 0.4, Absolute Granulocytes 11.7 H, Absolute Lymphocytes 2.5, Absolute Monocytes 1.0 H, Absolute Eosinophils 0.1, Absolute Basophils 0.1, PUBS MCHC 33.2 03/22/16 0600: Anion Gap 13, Estimated GFR 50 L, BUN/Creatinine Ratio 22.7, Magnesium 1.9, CBC w Diff NO MAN DIFF REQ, RBC 5.07, MCV 81.1, MCH 27.1, RDW 19.7 H, MPV 8.4, Gran % 86.9 H, Lymphocytes % 7.7 L, Monocytes % 5.2, Eosinophils % 0.1, Basophils % 0.1, Absolute Granulocytes 11.7 H, Absolute Lymphocytes 1.0 L, Absolute Monocytes 0.7 H, Absolute Eosinophils 0, Absolute Basophils 0, PUBS MCHC 33.4 03/21/16 1715: Anion Gap 14, Estimated GFR 41 L, BUN/Creatinine Ratio 21.5 Assessment/Plan Assessment/Plan The patient is back on her anticoagulant without further bleeding. Her heart rate is now better controlled on higher dose diltiazem and metoprolol. 1. Continue Cardizem, Lopressor, Eliquis 2. Continue IV diuretics. Switch to alternate oral diuretic on discharge. 3. Monitor BUN, creatinine, electrolytes 4. Consider for discharge when she reaches baseline weight and/or BUN starts to rise. 5. Consider short term home Roth for I&O monitoring, and possible suprapubic catheter if longer term monitoring is needed. 6. If the patient's heart rate continues to be in the normal range telemetry can be discontinued tomorrow. Continue telemetry? Yes
--- NOTE | 2016-03-22 15:09 | PN- Housestaff ---
Subjective Follow-up For: Recurrent fluid overload Reactive airway disease Coffee Ground Emesis Complaints: no complaints Tele-Events Since Last Visit: Atrial fibrillation/atrial flutter. Heart rate 87-116 bpm. PVCs. Subjective: Ms Lester was seen resting comfortably in bed. She states that she feels remarkably better. She feels she has responded well to the diuretics. She is no longer on any supplementaol oxygen. The patient also states that she is no pain and is currently pain free. She denies any fever, chills, malaise or weakness. Review of Systems Constitutional: Reports: see HPI. Objective Last 24 Hrs of Vital Signs/I&O Vital Signs Date Time Temp Pulse Resp B/P Pulse O2 O2 Flow FiO2 Ox Delivery Rate 03/22 1022 120/62 03/22 0819 98.7 92 20 120/62 94 Room Air 03/21 2300 98.2 104 20 138/64 95 Room Air 03/21 2258 104 138/64 Intake & Output 03/22 1600 03/22 0800 03/22 0000 Intake Total 430 240 400 Output Total 8515 881 9137 Balance -1445 -310 -600 Intake, IV 30 Intake, Oral 400 240 400 Output, Urine 6304 092 9966 Patient 383 lb Weight Physical Exam General Appearance: Alert, Oriented X3, Cooperative Skin: No Rashes HEENT: Atraumatic, EOMI, Mucous Membr. moist/pink Neck: Supple Lymphatic: Cervical nl Cardiovascular: Normal S1, Normal S2, No Murmurs Lungs: Clear to Auscultation, Normal Air Movement Abdomen: Soft, No Tenderness Neurological: Normal Speech, Normal Tone Extremities: bilateral pedal edema Current Medications: Current Medications Sig/Jackson Start time Last Medication Dose Route Stop Time Status Admin Acetaminophen 650 MG Q6P PRN 03/18 2045 AC PO Acetaminophen/ 1 TAB Q8P PRN 03/18 2030 AC 03/19 Hydrocodone Bitart PO 1328 Alprazolam 0.5 MG TID PRN 03/18 1800 AC 03/21 PO 03/25 1759 2258 Apixaban 5 MG BID 03/20 2200 AC 03/22 PO 1023 Bumetanide 2 MG DAILY 03/20 1000 AC 03/22 IV 1025 Diltiazem HCl 240 MG DAILY 03/21 1000 AC 03/22 PO 1022 Metolazone 2.5 MG DAILY 01/04 1000 AC 03/22 PO 1024 Metoprolol Tartrate 100 MG BID 03/19 1047 AC 03/22 PO 1022 Nystatin 1 CORBY TIDPRN PRN 03/18 2245 AC TOP Omeprazole 40 MG DAILY AC 03/20 1542 AC 03/22 PO 0610 Ondansetron HCl 4 MG Q6 PRN 03/21 1153 AC IV Oxycodone/ 2 TAB Q6P PRN 03/18 2045 AC Acetaminophen PO Potassium Chloride 40 MEQ ONCE ONE 03/21 2245 DC 03/21 PO 03/21 2246 2259 Prednisone 20 MG BID 03/20 1000 AC 03/22 PO 1023 Senna/Docusate Sodium 1 TAB AT BEDTIME PRN 03/18 2045 AC PO Sodium Hypochlorite 1 CORBY Q6-PRN PRN 03/19 1330 AC TOP Last 24 Hrs of Lab/Stephen Results Last 24 Hrs of Labs/Mics: Laboratory Tests 03/22/16 0600: Anion Gap 13, Estimated GFR 50 L, BUN/Creatinine Ratio 22.7, Magnesium 1.9, CBC w Diff NO MAN DIFF REQ, RBC 5.07, MCV 81.1, MCH 27.1, RDW 19.7 H, MPV 8.4, Gran % 86.9 H, Lymphocytes % 7.7 L, Monocytes % 5.2, Eosinophils % 0.1, Basophils % 0.1, Absolute Granulocytes 11.7 H, Absolute Lymphocytes 1.0 L, Absolute Monocytes 0.7 H, Absolute Eosinophils 0, Absolute Basophils 0, PUBS MCHC 33.4 03/21/16 1715: Anion Gap 14, Estimated GFR 41 L, BUN/Creatinine Ratio 21.5 Assessment/Plan Assessment: This is a 65-year-old lady with past medical history of hypertension, chronic systolic CHF, COPD, obesity hypoventilation syndrome, atrial fibrillation on Eliquis, Psoriasis, seek ED stage IIIa who presented to the [facility] emergency department with worsening dyspnea.CHF versus COPD exacerbation. Patient is limited in terms of her extra care given the fact that she is only able to get around in an ambulance which causes a significant amount of limitations on her outpatient follow-up. #Acute CHF exacerbation in the setting of our atrial fibrillation with rapid ventricular rate versus bacterial infection Patient received 1 mg IV of budesonide, and subsequently second milligrams IV of budesonide today. Continued on 2 mg of IV budesonide from 03/20/2016. Patient currently she is responding well to diuretic. Cardiology recommends continuing current diuretic regimen for another 24 hours and reassess in 24 hours to see if she can be discharged. BEP in a.m. #Hypokalemia-resolving Likely due to diuresis. Potassium this a.m. was 3.5. #Coffee-ground emesis and nausea Formal GI consult obtained. Patient is not likely to go for endoscopy unless becomes hemodynamically unstable. Differentials include Layne-Mariscal tear versus bleeding from AVM versus peptic ulcer disease due to stress from hospitalization. Now on regular diet PPIs changed to oral. Patient will be referred to GI service for outpatient follow-up #Reactive Airway disease Formal pulmonology consultation obtained recommends a quick 20 mg daily X 3 days prednisone taper TRC nebs. Maintain saturations above 92%. Patient states she is not on home oxygen however would benefit from supplemental oxygen via nasal cannula. #Obesity hypoventilation syndrome. BiPAP at night. Patient might be eligible for polysomnography as an outpatient. #Questionable worsening cellulitis Vs Intertriginous [place] Patient most likely has intertriginous [place] and will be continued on antifungal treatment. Patient also received a wound care consult: Recommend left posterior thigh which can be treated with barrier cream, anterior abdomen wall ulcer cleansed and daily Xeroform dressings. Patient did have an elevated white count (versus due to chronic steroid use) which could be attributed to cellulitis. Leg on the right was tender, erythematous and sensitive to touch. Given her body habitus it was difficult to do a complete exam however she denies any skin breakdown especially on any pressure points. Continue current management. Patient seems to be in less discomfort due to chronic [place] intertriginous areas. #Atrial fibrillation with RVR Patient tolerating Cardizem 240 mg by by mouth well. Patient's heart rate well controlled. Continue PO metoprolol 100 mg twice a day. Patient can continue to have Roth in place and likely will require a suprapubic catheter for longer term relief. Urology consult can be given upon discharge. Continue patient on Eliquis #Chronic leg venous stasis and edema. Continue leg elevation #Diet Heart healthy #DVT prophylaxis Patient is on Eliquis #Code Full code Problem List: 1. Coffee ground emesis 2. Fluid overload 3. Skin rash 4. Afib 5. CHF exacerbation 6. Lymphedema 7. Morbid obesity Pain Ratin Pain Location: None Alt Method for Pain Treatment: Other(free text) Pain Goal: Remain pain free Pain Plan: Tylenol PRN Tomorrow's Labs & Rationales: BEP: Monitor potassium levels in the setting of hypokalemia due to aggressive diuresis. CBC: Monitor H&H in the setting of previous episode of coffee-ground emesis. DVT/Prophylaxis: pharmacological (Eliquis)
[2016-03-22 16:20] VITALS: BP 129/74
[2016-03-22 22:42] VITALS: BP 108/68
[2016-03-23 08:24] LABS: ABSOLUTE BASOPHIL COUNT 0.1 /CUMM (0.0-0.2); ABSOLUTE EOSINOPHIL COUNT 0.1 /CUMM (0.0-0.7); ABSOLUTE GRANULOCYTE CT 11.7 /CUMM (1.4-6.5); ABSOLUTE LYMPH COUNT 2.5 /CUMM (1.2-3.4); BASOPHIL % 0.4 % (0.0-2.0); EOSINOPHIL % 0.9 % (0-5); GRANULOCYTE % 76.2 % (42.2-75.2); HEMATOCRIT 40.7 % (37-47); MEAN CORPUSCULAR HGB 26.9 PG (27.0-31.0); MEAN CORPUSCULAR HGB CONC 33.2 G/DL (33.0-37.0); MEAN CORPUSCULAR VOLUME 80.9 FL (81.0-99.0); MEAN PLATELET VOLUME 8.6 FL (7.4-10.4); PLATELET COUNT 223 /CUMM (130-400); RBC DISTRIBUTION WIDTH 19.6 % (11.5-14.5); RED BLOOD CELL CT 5.03 /CUMM (4.20-5.40); WHITE BLOOD CELL COUNT 15.3 /CUMM (4.8-10.8)
[2016-03-23 08:26] VITALS: BP 127/66
--- NOTE | 2016-03-23 10:38 | PN- Housestaff ---
Subjective Follow-up For: Recurrent fluid overload Reactive airway disease Coffee Ground Emesis Subjective: patient was seen and examined this morning, no complaints, no overnight events. will switch Bumex from IV to oral 2 mg daily for possible DC tomorrow. Kentrell has low K 2.9 was 2 doses of KCL 40 mg oral, she refused IV. will start KCL 20 mg daily based on Dr. Rose recommendation giving her presistant low K patient is possible DC tomorrow Review of Systems Constitutional: Denies: see HPI. Objective Last 24 Hrs of Vital Signs/I&O Vital Signs Date Time Temp Pulse Resp B/P Pulse O2 O2 Flow FiO2 Ox Delivery Rate 03/23 0917 97.6 94 18 127/66 03/23 0826 97.6 94 18 127/66 93 Room Air 03/22 2242 97.6 70 18 108/68 93 Room Air 03/22 2133 75 100/58 03/22 1620 97.3 75 18 129/74 93 Room Air Intake & Output 03/23 1600 03/23 0800 03/23 0000 Intake Total 200 360 Output Total 400 1000 Balance -200 -640 Intake, IV 10 Intake, Oral 200 350 Number 0 Bowel Movements Output, Urine 400 1000 Patient 169.644 kg Weight Physical Exam General Appearance: Alert, Oriented X3, Cooperative, No Acute Distress Cardiovascular: Regular Rate, Normal S1, Normal S2, No Murmurs Lungs: Clear to Auscultation, Normal Air Movement Abdomen: Normal Bowel Sounds, Soft, No Tenderness Neurological: Normal Speech, Strength at 5/5 X4 Ext, Normal Tone, Sensation Intact, Cranial Nerves 3-12 NL Extremities: No Clubbing, No Cyanosis, bilateral chronic edema Assessment/Plan Assessment: This is a 65-year-old lady with past medical history of hypertension, chronic systolic CHF, COPD, obesity hypoventilation syndrome, atrial fibrillation on Eliquis, Psoriasis, seek ED stage IIIa who presented to the [facility] emergency department with worsening dyspnea.CHF versus COPD exacerbation. Patient is limited in terms of her extra care given the fact that she is only able to get around in an ambulance which causes a significant amount of limitations on her outpatient follow-up. #Acute CHF exacerbation in the setting of our atrial fibrillation with rapid ventricular rate versus bacterial infection Patient received 1 mg IV of budesonide, and subsequently second milligrams IV of budesonide today. Continued on 2 mg of IV budesonide from 03/20/2016. Patient currently she is responding well to diuretic. Cardiology recommends continuing current diuretic regimen for another 24 hours and reassess in 24 hours to see if she can be discharged. BEP in a.m. #Hypokalemia-resolving Likely due to diuresis. Potassium this a.m. was 3.5. #Coffee-ground emesis and nausea Formal GI consult obtained. Patient is not likely to go for endoscopy unless becomes hemodynamically unstable. Differentials include Layne-Mariscal tear versus bleeding from AVM versus peptic ulcer disease due to stress from hospitalization. Now on regular diet PPIs changed to oral. Patient will be referred to GI service for outpatient follow-up #Reactive Airway disease Formal pulmonology consultation obtained recommends a quick 20 mg daily X 3 days prednisone taper TRC nebs. Maintain saturations above 92%. Patient states she is not on home oxygen however would benefit from supplemental oxygen via nasal cannula. #Obesity hypoventilation syndrome. BiPAP at night. Patient might be eligible for polysomnography as an outpatient. #Questionable worsening cellulitis Vs Intertriginous [place] Patient most likely has intertriginous [place] and will be continued on antifungal treatment. Patient also received a wound care consult: Recommend left posterior thigh which can be treated with barrier cream, anterior abdomen wall ulcer cleansed and daily Xeroform dressings. Patient did have an elevated white count (versus due to chronic steroid use) which could be attributed to cellulitis. Leg on the right was tender, erythematous and sensitive to touch. Given her body habitus it was difficult to do a complete exam however she denies any skin breakdown especially on any pressure points. Continue current management. Patient seems to be in less discomfort due to chronic [place] intertriginous areas. #Atrial fibrillation with RVR Patient tolerating Cardizem 240 mg by by mouth well. Patient's heart rate well controlled. Continue PO metoprolol 100 mg twice a day. Patient can continue to have Roth in place and likely will require a suprapubic catheter for longer term relief. Urology consult can be given upon discharge. Continue patient on Eliquis #Chronic leg venous stasis and edema. Continue leg elevation #Diet Heart healthy #DVT prophylaxis Patient is on Eliquis #Code Full code Problem List: 1. Coffee ground emesis 2. Fluid overload 3. Afib 4. CHF exacerbation 5. Lymphedema 6. Morbid obesity 7. Shortness of breath Pain Ratin Pain Location: n/a Pain Goal: Remain pain free Pain Plan: see mediaction Tomorrow's Labs & Rationales: mac cmp
--- NOTE | 2016-03-23 12:45 | PN- Att Addend ---
Attending Addendum Attending Brief Note Patient seen and examined. Plan of care discussed with the medical team and the patient. Available lab work and radiology test reports were reviewed. Patient is lying in bed comfortably without any distress. She denies any acute dyspnea chest pain fever or chills. She has been off the oxygen. Vital Signs Date Time Temp Pulse Resp B/P Pulse O2 O2 Flow FiO2 Ox Delivery Rate 03/23 0917 97.6 94 18 127/66 03/23 0826 97.6 94 18 127/66 93 Room Air 03/22 2242 97.6 70 18 108/68 93 Room Air 03/22 2133 75 100/58 03/22 1620 97.3 75 18 129/74 93 Room Air Intake & Output 03/23 1600 03/23 0800 03/23 0000 Intake Total 200 360 Output Total 400 1000 Balance -200 -640 Intake, IV 10 Intake, Oral 200 350 Number 0 Bowel Movements Output, Urine 400 1000 Patient 374 lb Weight Exam: General: Patient awake alert oriented without any distress CVS: S1 plus S2 without any murmur or gallops Chest: Few scattered crepitation without any wheeze. There is no respiratory distress. Abdomen: Soft nontender, bowel sound present, no guarding or rebound [employer] [address] LIGHT: Awake alert oriented without any focal neuro deficit and follows command appropriately Extremities: Bilateral 1+ edema; no clubbing or cyanosis noted Laboratory Tests 03/23 06 Chemistry Sodium (137 - 145 mmol/L) 132 L Potassium (3.5 - 5.1 mmol/L) 2.9 *L Chloride (98 - 107 mmol/L) 84 L Carbon Dioxide (22 - 30 mmol/L) 38 H Anion Gap (5 - 16) 11 BUN (7 - 17 mg/dL) 31 H Creatinine (0.5 - 1.0 mg/dL) 1.0 Estimated GFR (>60 ml/min) 56 L BUN/Creatinine Ratio (7 - 25 %) 31.0 H Magnesium (1.6 - 2.3 mg/dL) 1.7 Hematology CBC w Diff NO MAN DIFF REQ WBC (4.8 - 10.8 /CUMM) 15.3 H RBC (4.20 - 5.40 /CUMM) 5.03 Hgb (12.0 - 16.0 G/DL) 13.5 Hct (37 - 47 %) 40.7 MCV (81.0 - 99.0 FL) 80.9 L MCH (27.0 - 31.0 PG) 26.9 L RDW (11.5 - 14.5 %) 19.6 H Plt Count (130 - 400 /CUMM) 223 MPV (7.4 - 10.4 FL) 8.6 Gran % (42.2 - 75.2 %) 76.2 H Lymphocytes % (20.5 - 51.1 %) 16.2 L Monocytes % (1.7 - 9.3 %) 6.3 Eosinophils % (0 - 5 %) 0.9 Basophils % (0.0 - 2.0 %) 0.4 Absolute Granulocytes (1.4 - 6.5 /CUMM) 11.7 H Absolute Lymphocytes (1.2 - 3.4 /CUMM) 2.5 Absolute Monocytes (0.10 - 0.60 /CUMM) 1.0 H Absolute Eosinophils (0.0 - 0.7 /CUMM) 0.1 Absolute Basophils (0.0 - 0.2 /CUMM) 0.1 PUBS MCHC (33.0 - 37.0 G/DL) 33.2 Assessment and problem list * Acute congestive heart failure diastolic * Morbid obesity * Anasarca and lymphedema * History of COPD * History of A. fib chronic * Acute renal failure gradually improving Plan * Change IV Bumex to oral Bumex 2 mg by mouth daily * Observe for 24 hours on oral medication * Continue current dose of metolazone * Increase ambulation * Plan for discharge tomorrow
[2016-03-23 15:34] VITALS: BP 119/78
--- NOTE | 2016-03-23 16:22 | PN- Cardiology ---
Subjective Subjective: The patient is feeling back to normal. Her breathing is good. She continues to diuresis on IV Bumex. Her heart rate remains controlled on her current dose of Cardizem and Lopressor. Objective Vital Signs and I&Os Vital Signs Date Time Temp Pulse Resp B/P Pulse O2 O2 Flow FiO2 Ox Delivery Rate 03/23 1534 98.1 108 18 119/78 94 Room Air 03/23 0917 97.6 94 18 127/66 03/23 0826 97.6 94 18 127/66 93 Room Air 03/22 2242 97.6 70 18 108/68 93 Room Air 03/22 2133 75 100/58 03/22 1620 97.3 75 18 129/74 93 Room Air Intake & Output 03/23 1600 03/23 0000 03/22 1600 03/22 0000 Intake Total 480 200 360 430 240 400 Output Total 4103 780 9518 6532 797 1109 Balance -820 -200 -640 -1445 -310 -600 Intake, IV 10 30 Intake, Oral 480 200 350 400 240 400 Number 0 Bowel Movements Output, Urine 7268 131 3814 7326 911 0339 Patient 374 lb 383 lb Weight Physical Exam: She is in no distress HEENT exam is normal Chest is clear to limited exam Heart reveals irregular rhythm Extremities reveal chronic edema Current Medications: Current Medications Sig/Jackson Start time Last Medication Dose Route Stop Time Status Admin Acetaminophen 650 MG Q6P PRN 03/18 2045 AC PO Acetaminophen/ 1 TAB Q8P PRN 03/18 2030 AC 03/23 Hydrocodone Bitart PO 0041 Alprazolam 0.5 MG TID PRN 03/18 1800 AC 03/21 PO 03/25 1759 2258 Apixaban 5 MG BID 03/20 2200 AC 03/23 PO 0916 Bumetanide 2 MG DAILY 03/24 1000 AC PO Bumetanide 2 MG DAILY 03/20 1000 AC 03/23 IV 0908 Diltiazem HCl 240 MG DAILY 03/21 1000 AC 03/23 PO 0916 Magnesium Oxide 400 MG ONE ONE 03/23 0915 DC 03/23 PO 03/23 0916 0923 Magnesium Oxide 400 MG ONE ONE 03/22 1900 DC 03/22 PO 03/22 1901 2131 Metolazone 2.5 MG DAILY 03/19 1000 AC 03/23 PO 0916 Metoprolol Tartrate 100 MG BID 03/19 1047 AC 03/23 PO 0917 Nystatin 1 CORBY TIDPRN PRN 03/18 2245 DC 03/22 TOP 2134 Omeprazole 40 MG DAILY AC 03/20 1542 AC 03/23 PO 0615 Ondansetron HCl 4 MG Q6 PRN 03/21 1153 AC IV Oxycodone/ 2 TAB Q6P PRN 03/18 2045 AC Acetaminophen PO Potassium Chloride 20 MEQ DAILY 03/24 1000 AC PO Potassium Chloride 20 MEQ ONCE ONE 03/23 1130 DC 03/23 PO 03/23 1131 1220 Potassium Chloride 40 MEQ ONCE ONE 03/23 0930 DC 03/23 PO 03/23 0931 0924 Potassium Chloride 10 MEQ Q1H 03/23 0915 DC IV 03/23 1016 Prednisone 20 MG DAILY 03/23 1000 AC 03/23 PO 03/25 1001 0916 Prednisone 20 MG BID 03/20 1000 DC 03/22 PO 1023 Senna/Docusate Sodium 1 TAB AT BEDTIME PRN 03/18 2045 AC PO Sodium Hypochlorite 1 CORBY Q6-PRN PRN 03/19 1330 AC TOP Results Last 48 Hrs of Labs/Mics: Laboratory Tests 03/23/16 0620: Anion Gap 11, Estimated GFR 56 L, BUN/Creatinine Ratio 31.0 H, Magnesium 1.7, CBC w Diff NO MAN DIFF REQ, RBC 5.03, MCV 80.9 L, MCH 26.9 L, RDW 19.6 H, MPV 8.6, Gran % 76.2 H, Lymphocytes % 16.2 L, Monocytes % 6.3, Eosinophils % 0.9, Basophils % 0.4, Absolute Granulocytes 11.7 H, Absolute Lymphocytes 2.5, Absolute Monocytes 1.0 H, Absolute Eosinophils 0.1, Absolute Basophils 0.1, PUBS MCHC 33.2 03/22/16 0600: Anion Gap 13, Estimated GFR 50 L, BUN/Creatinine Ratio 22.7, Magnesium 1.9, CBC w Diff NO MAN DIFF REQ, RBC 5.07, MCV 81.1, MCH 27.1, RDW 19.7 H, MPV 8.4, Gran % 86.9 H, Lymphocytes % 7.7 L, Monocytes % 5.2, Eosinophils % 0.1, Basophils % 0.1, Absolute Granulocytes 11.7 H, Absolute Lymphocytes 1.0 L, Absolute Monocytes 0.7 H, Absolute Eosinophils 0, Absolute Basophils 0, PUBS MCHC 33.4 03/21/16 1715: Anion Gap 14, Estimated GFR 41 L, BUN/Creatinine Ratio 21.5 Assessment/Plan Assessment/Plan The patient is back on her anticoagulant without further bleeding. Her heart rate is now better controlled on higher dose diltiazem and metoprolol. 1. Continue Cardizem, Lopressor, Eliquis 2. She received IV diuretics today. Tomorrow she is scheduled to receive oral Bumex 3. Monitor BUN, creatinine, electrolytes. Replace potassium. She will need potassium supplementation on discharge. 4. Consider for discharge soon. 5. Consider short term home Roth for I&O monitoring, and possible suprapubic catheter if longer term monitoring is needed. 6. If the patient's heart rate continues to be in the normal range telemetry can be discontinued tomorrow. Continue telemetry? No
--- NOTE | 2016-03-23 18:46 | NUR ---
SPENT ABOUT 15-20 MIN WITH PATIENT PROVIDING SUPPORT AND EDUCATION REGARDING HOW TO INCREASE HER LEVEL OF ACTIVITY, LOSE WEIGHT, AND HOW TO HELP PREVENT RECURRENCE OF FLUID OVERLOAD.
[2016-03-23 21:52] VITALS: BP 136/74
[2016-03-23 23:47] VITALS: BP 136/74
[2016-03-24] MEDS ORDERED: KLOR-CON M2020 ME1 PO (06:36)
[2016-03-24] MEDS ORDERED: CARDIZEM CD240 M1 PO (06:36)
[2016-03-24] MEDS ORDERED: METOLAZONE2.5 M1 PO (06:36)
--- NOTE | 2016-03-24 07:50 | PN- Housestaff ---
LINDA LEONE,[facility] 03/24/16 0744: Subjective Follow-up For: Anasarca Hyperkalemia OHS Tele-Events Since Last Visit: Francisco JavierFib 77-94 Subjective: Ms Lester was seen and examined this morning. She reports no issues overnight. Patient reports continued response to diuretics and feels that her legs have reduced markedly in swelling. Patient reports no discomfort and/or pain. She denies any chest pain, chest discomfort, dyspnea or dyspnea on exertion. Patient does state that she has been tolerating oral intake well. She has been avoiding heavy meals owing to an episode of coffee-ground emesis last week. Patient denies any fever, chills, nausea, vomiting. Patient is currently off oxygen. Review of Systems Constitutional: Reports: see HPI. Denies: chills, fever, weakness. Objective Last 24 Hrs of Vital Signs/I&O Vital Signs Date Time Temp Pulse Resp B/P Pulse O2 O2 Flow FiO2 Ox Delivery Rate 03/23 2347 98.0 84 20 136/74 95 Room Air 03/23 2153 85 136/74 03/23 2152 85 136/74 03/23 1600 Room Air 03/23 1534 98.1 108 18 119/78 94 Room Air 03/23 0917 97.6 94 18 127/66 03/23 0826 97.6 94 18 127/66 93 Room Air Intake & Output 03/24 0800 03/24 0000 03/23 1600 Intake Total 600 480 Output Total 257 343 4784 Balance -500 -150 -820 Intake, Oral 600 480 Output, Urine 155 685 8414 Patient 170.551 kg Weight Physical Exam General Appearance: Alert, Oriented X3, Cooperative, No Acute Distress Cardiovascular: Normal S1, Normal S2, Irregular Rate and Rhythm Lungs: Clear to Auscultation, Limited due to Habitus Abdomen: Normal Bowel Sounds, Soft, No Tenderness Neurological: Normal Speech Extremities: Edema 2+. L>r. Stasis and lymphadenitis Current Medications: Current Medications Sig/Jackson Start time Last Medication Dose Route Stop Time Status Admin Acetaminophen 650 MG Q6P PRN 03/18 2044 AC PO Acetaminophen/ 1 TAB Q8P PRN 03/18 2030 AC 03/23 Hydrocodone Bitart PO 004 Alprazolam 0.5 MG TID PRN 03/18 1800 AC 03/21 PO 03/25 1759 2258 Apixaban 5 MG BID 03/20 2200 AC 03/23 PO 2153 Bumetanide 2 MG DAILY 03/24 1000 AC PO Bumetanide 2 MG DAILY 03/20 1000 DC 03/23 IV 0908 Diltiazem HCl 240 MG DAILY 03/21 1000 AC 03/23 PO 0916 Magnesium Oxide 400 MG ONE ONE 03/23 0915 DC 03/23 PO 03/23 0916 0923 Metolazone 2.5 MG DAILY 03/19 1000 AC 03/23 PO 0916 Metoprolol Tartrate 100 MG BID 03/19 1047 AC 03/23 PO 2153 Omeprazole 40 MG DAILY AC 03/20 1542 AC 03/24 PO 0650 Ondansetron HCl 4 MG Q6 PRN 03/21 1153 AC IV Oxycodone/ 2 TAB Q6P PRN 03/18 2045 AC Acetaminophen PO Polyethylene Glycol 17 GM DAILY 03/23 1839 AC PO Potassium Chloride 20 MEQ DAILY 03/24 1000 AC PO Potassium Chloride 20 MEQ ONCE ONE 03/23 1130 DC 03/23 PO 03/23 1131 1220 Potassium Chloride 40 MEQ ONCE ONE 03/23 0930 DC 03/23 PO 03/23 0931 0924 Potassium Chloride 10 MEQ Q1H 03/23 0915 DC IV 03/23 1016 Prednisone 20 MG DAILY 03/23 1000 AC 03/23 PO 03/25 1001 0916 Senna 187 MG AT BEDTIME 03/23 2200 AC 03/23 PO 2153 Senna/Docusate Sodium 1 TAB AT BEDTIME PRN 03/18 2045 AC PO Sodium Hypochlorite 1 CORBY Q6-PRN PRN 03/19 1330 AC TOP Last 24 Hrs of Lab/Stephen Results Last 24 Hrs of Labs/Mics: Laboratory Tests 03/23/16 1615: Assessment/Plan Assessment: This is a 65-year-old lady with past medical history of hypertension, chronic systolic CHF, COPD, obesity hypoventilation syndrome, atrial fibrillation on Eliquis, Psoriasis, seek ED stage IIIa who presented to the [facility] emergency department with worsening dyspnea.CHF versus COPD exacerbation. Patient is limited in terms of her extra care given the fact that she is only able to get around in an ambulance which causes a significant amount of limitations on her outpatient follow-up. #Acute CHF exacerbation in the setting of our atrial fibrillation with rapid ventricular rate versus bacterial infection Continue metolazone 2.5 mg daily by mouth. Continue Bumetanide 2 mg daily by mouth. Monitor strict I's and O's and see what the patient responds well to change in medications from IV. Patient received 1 mg IV of budesonide, and subsequently second milligrams IV of budesonide today. Continued on 2 mg of IV budesonide from 03/20/2016. Patient currently she is responding well to diuretic. Cardiology recommends continuing current diuretic regimen for another 24 hours and reassess in 24 hours to see if she can be discharged. BEP in a.m. #Hypokalemia-resolving Likely due to diuresis. Potassium this a.m. was 3.0. K-Dur 40 mEq given. #Coffee-ground emesis and nausea Formal GI consult obtained. Patient is not likely to go for endoscopy unless becomes hemodynamically unstable. Differentials include Layne-Mariscal tear versus bleeding from AVM versus peptic ulcer disease due to stress from hospitalizationNow on regular diet PPIs changed to oral. Patient will be referred to GI service for outpatient follow-up #Reactive Airway disease Formal pulmonology consultation obtained recommends a quick 20 mg prednisone. TRC nebs. Maintain saturations above 92%. Patient states she is not on home oxygen however would benefit from supplemental oxygen via nasal cannula. #Obesity hypoventilation syndrome. Patient might be eligible for polysomnography as an outpatient. #Questionable worsening cellulitis Vs Intertriginous [place] Patient most likely has intertriginous [place] and will be continued on antifungal treatment. Patient also received a wound care consult: Recommend left posterior thigh which can be treated with barrier cream, anterior abdomen wall ulcer cleansed and daily Xeroform dressings. Patient did have an elevated white count (versus due to chronic steroid use) which could be attributed to cellulitis. Leg on the right was tender, erythematous and sensitive to touch. Given her body habitus it was difficult to do a complete exam however she denies any skin breakdown especially on any pressure points. Continue current management. Patient seems to be in less discomfort due to chronic [place] intertriginous areas. Prednisone 20 mg to be continued for Psioriasis. #Atrial fibrillation with RVR Patient tolerating Cardizem 240 mg by by mouth well. Patient's heart rate well controlled. Continue PO metoprolol 100 mg twice a day. Patient can continue to have Roth in place and likely will require a suprapubic catheter for longer term relief. Urology consult can be given upon discharge. Continue patient on Eliquis #Chronic leg venous stasis and edema. Continue leg elevation #Diet Heart healthy #DVT prophylaxis Patient is on Eliquis #Code Full code Problem List: 1. Full code status 2. Skin rash 3. Afib 4. CHF exacerbation 5. Morbid obesity Pain Ratin Pain Location: No Pain Pain Goal: Remain pain free Pain Plan: Tylenol PRN Tomorrow's Labs & Rationales: BEP: Monitor Potassium due to aggressive diuresis. KADEEM LOPEZ MD 03/24/16 2240: Attending MD Review Statement Attending Statement Attending MD Statement: examined this patient, discuss w/resident/PA/[employer] COAT SANDER, agreed w/resident/PA/[employer] SANDER, reviewed EMR data (avail), discussed with nursing, discussed with case mgmt, amended to note Attending Assessment/Plan: The patient was seen and discussed with house staff. Begun on oral Bumex/ Metolazone today. Day shift I/O's remain negative. Will continue to follow on oral medications to document negative fluid balance prior to discharge home.
[2016-03-24 08:24] VITALS: BP 104/61
[2016-03-24] MEDS ORDERED: BUMETANIDE1 M1 PO ×2 (09:16→09:20)
--- NOTE | 2016-03-24 09:44 | PN- Cardiology ---
Subjective Subjective: The patient is feeling better. She has been out of bed and ambulatory in the room. She continues to diuresis. She is now on oral Bumex. Her heart rate continues to be under control and she remains in atrial fibrillation on anticoagulation. Objective Vital Signs and I&Os Vital Signs Date Time Temp Pulse Resp B/P Pulse O2 O2 Flow FiO2 Ox Delivery Rate 03/24 0930 112/62 03/24 0824 97.5 53 17 104/61 94 Room Air 03/23 2347 98.0 84 20 136/74 95 Room Air 03/23 2153 85 136/74 03/23 2152 85 136/74 03/23 1600 Room Air 03/23 1534 98.1 108 18 119/78 94 Room Air Intake & Output 03/24 1600 03/24 0000 03/23 1600 03/23 0000 Intake Total 600 480 200 360 Output Total 629 779 5559 400 1000 Balance -500 -150 -820 -200 -640 Intake, IV 10 Intake, Oral 600 480 200 350 Number 0 Bowel Movements Output, Urine 507 808 1693 400 1000 Patient 376 lb 374 lb Weight Physical Exam: The chest is clear Heart reveals irregular rhythm and no murmurs She has less peripheral edema Current Medications: Current Medications Sig/Jackson Start time Last Medication Dose Route Stop Time Status Admin Acetaminophen 650 MG Q6P PRN 03/18 2045 AC PO Acetaminophen/ 1 TAB Q8P PRN 03/18 2030 AC 03/23 Hydrocodone Bitart PO 0041 Alprazolam 0.5 MG TID PRN 03/18 1800 AC 03/21 PO 03/25 1759 2258 Apixaban 5 MG BID 03/20 2200 AC 03/24 PO 0930 Bumetanide 2 MG DAILY 03/24 1000 AC PO Bumetanide 2 MG DAILY 03/20 1000 DC 03/23 IV 0908 Diltiazem HCl 240 MG DAILY 03/21 1000 AC 03/24 PO 0929 Metolazone 2.5 MG DAILY 03/24 1000 AC 03/24 PO 0931 Metolazone 2.5 MG DAILY 03/19 1000 DC 03/23 PO 0916 Metoprolol Tartrate 100 MG BID 03/19 1047 AC 03/24 PO 0930 Omeprazole 40 MG DAILY AC 03/20 1542 AC 03/24 PO 0650 Ondansetron HCl 4 MG Q6 PRN 03/21 1153 AC IV Oxycodone/ 2 TAB Q6P PRN 03/18 2045 AC Acetaminophen PO Polyethylene Glycol 17 GM DAILY 03/23 1839 AC 03/24 PO 09 Potassium Chloride 20 MEQ DAILY 03/24 1000 DC PO Potassium Chloride 40 MEQ DAILY 03/24 1000 AC 03/24 PO 0929 Potassium Chloride 20 MEQ ONCE ONE 03/23 1130 DC 03/23 PO 03/23 1131 1220 Potassium Chloride 10 MEQ Q1H 03/23 0915 DC IV 03/23 1016 Prednisone 20 MG DAILY 03/23 1000 AC 03/24 PO 03/25 1001 0930 Senna 187 MG AT BEDTIME 03/23 2200 AC 03/23 PO 2153 Senna/Docusate Sodium 1 TAB AT BEDTIME PRN 03/18 2044 AC PO Sodium Hypochlorite 1 CORBY Q6-PRN PRN 03/19 1330 AC TOP Results Last 48 Hrs of Labs/Mics: Laboratory Tests 03/24/16 0830: Sodium Pending, Potassium Pending, Chloride Pending, Carbon Dioxide Pending, Anion Gap Pending, BUN Pending, Creatinine Pending, BUN/Creatinine Ratio Pending , CBC w Diff Pending, WBC Pending, RBC Pending, Hgb Pending, Hct Pending, MCV Pending, MCH Pending, RDW Pending, Plt Count Pending, MPV Pending, PUBS MCHC Pending 03/23/16 1615: 03/23/16 0620: Anion Gap 11, Estimated GFR 56 L, BUN/Creatinine Ratio 31.0 H, Magnesium 1.7, CBC w Diff NO MAN DIFF REQ, RBC 5.03, MCV 80.9 L, MCH 26.9 L, RDW 19.6 H, MPV 8.6, Gran % 76.2 H, Lymphocytes % 16.2 L, Monocytes % 6.3, Eosinophils % 0.9, Basophils % 0.4, Absolute Granulocytes 11.7 H, Absolute Lymphocytes 2.5, Absolute Monocytes 1.0 H, Absolute Eosinophils 0.1, Absolute Basophils 0.1, PUBS MCHC 33.2 Assessment/Plan Assessment/Plan The patient is back on her anticoagulant without further bleeding. Her heart rate is now better controlled on higher dose diltiazem and metoprolol. 1. Continue Cardizem, Lopressor, Eliquis 2. Continue with oral Bumex and monitor I and O closely. 3. Monitor BUN, creatinine, electrolytes. Replace potassium. She will need potassium supplementation on discharge. 4. Consider for discharge soon. 5. Consider short term home Roth for I&O monitoring, and possible suprapubic catheter if longer term monitoring is needed. 6. Telemetry can be discontinued at this time as her heart rate has been stable for several days. Continue telemetry? No
[2016-03-24 09:52] LABS: ABSOLUTE BASOPHIL COUNT 0.1 /CUMM (0.0-0.2); ABSOLUTE EOSINOPHIL COUNT 0.2 /CUMM (0.0-0.7); ABSOLUTE GRANULOCYTE CT 11.3 /CUMM (1.4-6.5); ABSOLUTE LYMPH COUNT 2.9 /CUMM (1.2-3.4); BASOPHIL % 0.6 % (0.0-2.0); EOSINOPHIL % 1.3 % (0-5); GRANULOCYTE % 72.9 % (42.2-75.2); HEMATOCRIT 41.6 % (37-47); MEAN CORPUSCULAR HGB 27.2 PG (27.0-31.0); MEAN CORPUSCULAR HGB CONC 33.7 G/DL (33.0-37.0); MEAN CORPUSCULAR VOLUME 80.7 FL (81.0-99.0); MEAN PLATELET VOLUME 7.9 FL (7.4-10.4); PLATELET COUNT 265 /CUMM (130-400); RBC DISTRIBUTION WIDTH 19.9 % (11.5-14.5); RED BLOOD CELL CT 5.15 /CUMM (4.20-5.40); WHITE BLOOD CELL COUNT 15.5 /CUMM (4.8-10.8)
[2016-03-24 15:55] VITALS: BP 118/63
[2016-03-24 22:46] VITALS: BP 110/70
--- NOTE | 2016-03-25 06:30 | PN- Housestaff ---
LINDA LEONE,[facility] 03/25/16 0629: Subjective Follow-up For: Anasarca Hyperkalemia OHS Tele-Events Since Last Visit: Off Tele Subjective: Patient was seen and examined this morning. Resting comfortably in bed. She reports no overnight events. Patient is tolerating by mouth intake well. Patient expresses the desire to be discharged home today owing to the fact that she feels much better and her is ready for her home. Patient denies any chest pain and/or chest discomfort. Patient reports bilateral leg edema has improved markedly. Patient denies any fever, chills, nausea, vomiting Review of Systems Constitutional: Reports: see HPI. Denies: chills, diaphoresis, fever, malaise. Objective Last 24 Hrs of Vital Signs/I&O Vital Signs Date Time Temp Pulse Resp B/P Pulse O2 O2 Flow FiO2 Ox Delivery Rate 03/24 2246 98.1 72 20 110/70 94 Room Air 03/24 2019 68 124/72 03/24 1999 Room Air 03/24 1555 97.9 80 18 118/63 93 Room Air 03/24 0930 112/62 03/24 0824 97.5 53 17 104/61 94 Room Air Intake & Output 03/25 0800 03/25 0000 03/24 1600 Intake Total 400 400 Output Total 1450 1100 Balance -1050 -700 Intake, Oral 400 400 Number 1 Bowel Movements Output, Urine 1450 1100 Physical Exam General Appearance: Alert, Oriented X3, Cooperative, No Acute Distress Cardiovascular: Regular Rate, Normal S1, Normal S2 Lungs: Clear to Auscultation Abdomen: Normal Bowel Sounds, Soft, No Tenderness Neurological: Normal Speech Extremities: Generalized Bilateral Leg Edema. No Erythema, No tenderness Current Medications: Current Medications Sig/Jackson Start time Last Medication Dose Route Stop Time Status Admin Acetaminophen 650 MG Q6P PRN 03/18 2045 DCD PO Acetaminophen/ 1 TAB Q8P PRN 03/18 2030 DCD 03/23 Hydrocodone Bitart PO 0041 Alprazolam 0.5 MG TID PRN 03/18 1800 DCD 03/24 PO 03/25 1752013 Apixaban 5 MG BID 03/20 2200 DCD 03/25 PO 09 Bumetanide 2 MG DAILY 03/24 1000 DCD 03/25 PO 09 Diltiazem HCl 240 MG DAILY 01/06 1000 DCD 03/25 PO 0952 Metolazone 2.5 MG DAILY 03/24 1000 DCD 03/25 PO 0908 Metoprolol Tartrate 100 MG BID 03/19 1047 DCD 03/25 PO 0952 Omeprazole 40 MG DAILY AC 03/20 1542 DCD 03/25 PO 0635 Ondansetron HCl 4 MG Q6 PRN 03/21 1153 DCD IV Oxycodone/ 2 TAB Q6P PRN 03/18 204 DCD Acetaminophen PO Polyethylene Glycol 17 GM DAILY 03/23 1839 DCD 03/24 PO 0929 Potassium Chloride 40 MEQ ONCE ONE 03/25 814 DC 03/25 PO 03/25 08 0957 Potassium Chloride 10 MEQ ONCE ONE 03/25 814 DC 03/25 IV 03/25 815 0908 Potassium Chloride 40 MEQ DAILY 03/24 1000 DCD 03/25 PO 1127 Prednisone 20 MG DAILY 03/23 1000 DC 03/25 PO 03/25 1001 1003 Senna 187 MG AT BEDTIME 03/23 2200 DCD 03/24 PO 2021 Senna/Docusate Sodium 1 TAB AT BEDTIME PRN 03/18 204 DCD PO Sodium Hypochlorite 1 CORBY Q6-PRN PRN 03/19 1330 DCD TOP Last 24 Hrs of Lab/Stephen Results Last 24 Hrs of Labs/Mics: Laboratory Tests 03/25/16 0615: Anion Gap 12, Estimated GFR 45 L, BUN/Creatinine Ratio 30.0 H Assessment/Plan Assessment: This is a 65-year-old lady with past medical history of hypertension, chronic systolic CHF, COPD, obesity hypoventilation syndrome, atrial fibrillation on Eliquis, Psoriasis, seek ED stage IIIa who presented to the [facility] emergency department with worsening dyspnea.CHF versus COPD exacerbation. Patient is limited in terms of her extra care given the fact that she is only able to get around in an ambulance which causes a significant amount of limitations on her outpatient follow-up. #Acute CHF exacerbation in the setting of our atrial fibrillation with rapid ventricular rate versus bacterial infection Continue metolazone 2.5 mg daily by mouth. Continue Bumetanide 2 mg daily by mouth. Patient is -780 mL of last 24 hours. Monitor strict I's and O's and see what the patient responds well to change in medications from IV. Patient received 1 mg IV of budesonide, and subsequently second milligrams IV of budesonide today. Continued on 2 mg of IV budesonide from 03/20/2016. Patient currently she is responding well to diuretic. Cardiology recommends continuing current diuretic regimen for another 24 hours and reassess in 24 hours to see if she can be discharged. #Hypokalemia-resolving Likely due to diuresis. Potassium this a.m. was 2.7 K-Dur 40 mEq given. Patient will likely need an increase in her dose of potassium. 40 mEq twice a day. She was advised to follow-up for blood work on 03/28/2016. #Coffee-ground emesis and nausea Results patient reports no issues with emesis. Formal GI consult obtained. Patient is not likely to go for endoscopy unless becomes hemodynamically unstable. Differentials include Layne-Mariscal tear versus bleeding from AVM versus peptic ulcer disease due to stress from hospitalizationNow on regular diet PPIs changed to oral. Patient will be referred to GI service for outpatient follow-up #Reactive Airway disease Formal pulmonology consultation obtained recommends a quick 20 mg prednisone. TRC nebs. Maintain saturations above 92%. Patient states she is not on home oxygen however would benefit from supplemental oxygen via nasal cannula. #Obesity hypoventilation syndrome. Patient might be eligible for polysomnography as an outpatient. #Questionable worsening cellulitis Vs Intertriginous [place] Patient most likely has intertriginous [place] and will be continued on antifungal treatment. Patient also received a wound care consult: Recommend left posterior thigh which can be treated with barrier cream, anterior abdomen wall ulcer cleansed and daily Xeroform dressings. Patient did have an elevated white count (versus due to chronic steroid use) which could be attributed to cellulitis. Leg on the right was tender, erythematous and sensitive to touch. Given her body habitus it was difficult to do a complete exam however she denies any skin breakdown especially on any pressure points. Continue current management. Patient seems to be in less discomfort due to chronic [place] intertriginous areas. Prednisone 20 mg to be continued for Psioriasis. #Atrial fibrillation with RVR Patient tolerating Cardizem 240 mg by by mouth well. Patient's heart rate well controlled. Continue PO metoprolol 100 mg twice a day. Patient can continue to have Roth in place and likely will require a suprapubic catheter for longer term relief. Urology consult can be given upon discharge. Continue patient on Eliquis #Chronic leg venous stasis and edema. Continue leg elevation #Diet Heart healthy #DVT prophylaxis Patient is on Eliquis #Code Full code Problem List: 1. Coffee ground emesis 2. Fluid overload 3. Full code status 4. Skin rash 5. Afib 6. CHF exacerbation 7. Morbid obesity 8. Lymphedema Pain Ratin Pain Location: NA Pain Goal: Remain pain free Pain Plan: Tylenol Tomorrow's Labs & Rationales: KADEEM ROSE MD 03/25/16 4019: Attending MD Review Statement Attending Statement Attending MD Statement: examined this patient, discuss w/resident/PA/BATTERY STACKER, agreed w/resident/PA/BATTERY STACKER, reviewed EMR data (avail), discussed with nursing, discussed with case mgmt, amended to note Attending Assessment/Plan: The patient was seen and discussed with house staff. Maintaining negative I/O's on oral medications. Will replete potassium and check later this week. Patient wishes Roth at least as a temporary measure and will discuss with PCP when to discontinue.
[2016-03-25] MEDS ORDERED: BUMETANIDE2 M1 PO (08:04)
[2016-03-25 08:22] VITALS: BP 122/70
[2016-03-25 09:52] VITALS: BP 124/72
--- NOTE | 2016-03-25 18:17 | Discharge Summary ---
Visit Information Visit Dates Admission Date: 03/18/16 Discharge Date: 03/25/16 Hospital Course Course Attending Physician: KADEEM LOPEZ MD Primary Care Physician: NELLIE AMBROSE MD Hospital Course: This is a 65-year-old lady with past medical history of hypertension, chronic systolic CHF, COPD, obesity hypoventilation syndrome, atrial fibrillation on Eliquis, Psoriasis, CKD stage IIIa who presented to the [facility] emergency department with worsening dyspnea. She was admitted to our service and below is a summary of the care she received. #Acute on chronic systolic and diastolic CHF/Anasarca On admission, the patient was started on IV Bumex and IV Lasix. We continued the patient on IV Bumex until day six of admission, when we converted her to PO Bumex. Her output was appropriate and she was discharged home on 2mg of Bumex daily. Her Lasix was stopped. Throughout the admission, the patient was continued on Metolazone Strict I's and O's were monitored throughout the patients admission. The patient also had troponins trended. The results of these were non contributory. At the time of discharge, the patient was given a referral to the Urology service for assessment to have a suprapubic cystostomy if one was needed. #Atrial fibrillation with RVR For better rate control, the patients Diltiazem was increased to 240 mg daily. She was also continued on her Metoprolol 100 mg twice per day. On day two of admission, following the patient emetic episode, we started her on a IV diltiazem drip after giving her a bolus of 10 mg. Once the patient was able to tolerate PO intake, we began her back on her Oral medication and titrated her IV drip down. #Hypokalemia The patient did develop hypokalemia. Her potassium level was topped up and supplemented accordingly. Her daily potassium supplement was also adjested. She was given a script to monitor her BEP shortly after her discharge as an outpatient and CC results to her PCP. #Nausea and Coffee-ground emesis On day two of admission, the patient developed acute coffee ground emesis. The patient was made NPO. We obtained a GI consultation who recommended that an emergency EGD would not be warranted. The cause of her emetic episodes were idiopathic. They recommended that the patient follow up with them as an outpatient. The patients diet was advanced as tolerated. #Reactive Airway disease On day two of admission we obtained a pulmonology consultation. They recommend 20 mg prednisone for three days. They also recommended Nubulizer treatments as needed. The patient was placed on supplemental oxygen via NC to maintain adequate saturations above 92%. #Intertriginous Fungal Infection On day two of admission, we also obtained an Infectious disease consultation to rule out cellulitis. They did not think that the patient had cellulitis and recommended following off antibiotics. A wound care consultation also recommended barrier cream and daily Xeroform dressings to the anterior abdominal wall. #Leukocytosis. On admission, the patient did have an elevated WBC count. This was attributed to chronic prednisone use, which she uses for psoriasis. #Obesity hypoventilation syndrome. It was recomended to the patient, she might benefit from a polysomnography test as an outpatient. Allergies: Coded Allergies: lisinopril (ABDOMINAL CRAMPING 01/25/16) oxycodone (From Percocet) (NAUSEA 01/25/16) Pertinent Lab Results: SERVICE DATE: 03/19/16 EXAM TYPE: RAD - XRY-PORTABLE ABDOMEN EXAMINATION: XR PORTABLE ABDOMEN CLINICAL INFORMATION: Stat vomiting. Coffee-ground vomiting. COMPARISON: None. TECHNIQUE: Supine AP abdomen 5:51 PM FINDINGS: Exam limited by body habitus. There is underpenetration and motion. No abnormal dilated bowel loops. Nonobstructive bowel pattern. IMPRESSION: Exam limited by body habitus. Nonobstructive bowel pattern. DICTATED BY: SHEN GLASS MD SERVICE DATE: 03/18/161509 EXAM TYPE: RAD - XRY-PORTABLE CHEST XRAY EXAMINATION: XR PORTABLE CHEST CLINICAL INFORMATION: Shortness of breath. COMPARISON: Chest x-ray 03/03/2016. TECHNIQUE: Portable view of the chest was obtained. FINDINGS: Single AP view of the chest demonstrates pulmonary hypoinflation. In comparison to the prior examination, there has been interval development of patchy airspace opacities within the right hilar region as well as the right lung base. This could atelectasis versus reflect infection in the appropriate clinical setting versus aspiration pneumonitis. Cardiac mediastinal contours are stable and there is stable prominence of the cardiac silhouette with mild central venous congestion. No overt pulmonary edema. No pneumothoraces. Blunting of the left costophrenic angle could reflect a small left-sided pleural effusion with associated atelectasis. Superimposed infection is not excluded. IMPRESSION: Interval development of patchy airspace opacities within the right hilar region as well as right lung base. This finding is nonspecific but could reflect atelectasis given low lung volumes, aspiration pneumonitis versus infection in the appropriate clinical setting. Consider correlation with PA and lateral chest x-ray. DICTATED BY: ELENA TEJADA MD Disposition Summary Disposition Principal Diagnosis: #Acute on chronic systolic and diastolic CHF Additional Diagnosis: #Acute on chronic systolic and diastolic CHF #Anasarca #Atrial fibrillation with RVR #Hypokalemia #Nausea and Coffee-ground emesis #Reactive Airway disease #Intertriginous Fungal Infection #Leukocytosis. #Obesity hypoventilation syndrome. Discharge Disposition: home or self care Discharge Instructions General Discharge Information Code Status: Full Code Patient's Diet: Heart Healthy Patient's Activity: As Tolerated Follow-Up Instructions/Appts: Please follow-up with your primary care physician, Dr Romero on 03/26/2016. This is for a post hospital discharge follow-up. You will need to speak to your primary care physician about your new medication changes. Please follow-up with Dr Hernadez on 03/28/2016. We have provided you with a referral. Please follow-up with the Dr Stout (Quick Print Operator) on 03/28/2016. We have provided you with a referral. You may undergo a sleep evaluation. Please follow-up with Dr Waldron (dietary tech) on 04/02/2016. We have provided you with a referral.You might be considered for a colonoscopy. Please follow-up with Dr Rivero (Urologist) on 04/02/2016. We have provided you with a referral. You might be considered for a suprapubic catheter. Your Potassium dose has been increased, please take this medication at the new increase dose. Medications at Discharge Discharge Medications: Stop taking the following medications: Diltiazem Cd (Diltiazem ER) 120 MG CAP.ER.DEG ORAL DAILY Days = 30 Furosemide (Furosemide) 10 MG/ML VIAL INTRAVEN DAILY as needed for Fluid retention Qty = 16 Continue taking these medications: Albuterol Sulfate (Ventolin) 1 UNIT PUF 2 Puff Inhale through mouth Every 4 hours as needed for WHEEZING Qty = 1 Comments: Last Taken:NOT GIVEN Time: Prednisone (Prednisone) 20 MG TABLET 1 Tablet ORAL TWICE DAILY Qty = 30 Comments: Last Taken:03/25/16 Time:830AM Hydrocodone/Acetaminophen (Hydrocodon-Acetaminophn 10-325) 10 MG-325 MG TABLET 1 Tablet ORAL THREE TIMES A DAY NEEDED Qty = 60 Comments: Last Taken:01/29/16 Time:730PM Alprazolam (Alprazolam) 0.5 MG TABLET 1 Tablet ORAL THREE TIMES A DAY NEEDED Qty = 60 Comments: Last Taken:03/24/16 Time:0830PM, Apixaban (Eliquis) 5 MG TABLET 5 Milligram ORAL TWICE DAILY Qty = 30 Comments: Last Taken:03/25/16 Time:0830AM Metolazone (Metolazone) 2.5 MG TABLET 1 Tablet ORAL DAILY Comments: Last Taken:03/25/16 Time:1000 Potassium Chloride (Potassium Chloride) 20 MEQ TAB.ER.PRT 2 Tablet ORAL TWICE DAILY Qty = 30 Comments: Last Taken:03/25/16 Time:1000 Aclidinium [place] (Tudorza Pressair) 400 MCG/ACTUATION AER.POW.BA 1 PUFF Inhale through mouth TWICE DAILY Qty = 1 Comments: PER PT Metoprolol Tartrate (Metoprolol Tartrate) 50 MG TABLET 100 Milligram ORAL TWICE DAILY Days = 30 Comments: Last Taken:03/25/16 Time:1000 Start taking the following new medications: Diltiazem HCl (Cardizem Cd) 240 MG CAP.ER.24H 240 Milligram ORAL DAILY Qty = 30 No Refills Comments: Last Taken:03/25/16 Time:1000 Bumetanide (Bumetanide) 2 MG TABLET 1 Tablet ORAL DAILY Qty = 60 No Refills Comments: Last Taken:03/25/16 Time:1000 Copies To: LAZARA LEONE,Roscoe RUFFIN; JOSHUA LEONE,DORINA Burgess; NEIL LEONE,EMILY; VERÓNICA LEONE,SAW Lamar; PAKO LEONE,NIHARIKA; ERIK LEONE,TOMY; HALIE LEONE,NELLIE Gibson Attending MD Review Statement Documenting Attending: KADEEM LOPEZ MD Other Findings: The patient was seen and discussed with house staff. Agree with the plan of care as outlined.
== END 2016-03-25 14:00 | disposition home health service (06) | DRG 292 ==
LOC: ERH 14:55 → ERHI 16:31 → 1NO 16:31
PROVIDERS: Internal Medicine; Physician Assistant; Student in an Organized Health Care Education/Training Program; ADMIT Internal Medicine
DX: I11.0 Hypertensive heart disease with heart failure (principal); Z68.45 Body mass index [BMI] 70 or greater, adult; N17.9 Acute kidney failure, unspecified; K92.0 Hematemesis; I48.1 Persistent atrial fibrillation; I50.23 Acute on chronic systolic (congestive) heart failure; E66.01 Morbid (severe) obesity due to excess calories; J44.9 Chronic obstructive pulmonary disease, unspecified; L98.499 Non-pressure chronic ulcer of skin of other sites with unspecified severity; B37.2 Candidiasis of skin and nail; I87.8 Other specified disorders of veins; E87.6 Hypokalemia; R06.89 Other abnormalities of breathing
CPT/HCPCS: 1NP; 36415; 74000; 82436; 87086; 93005; 93010; 96374; 99291; J0780; J1644; J1940; J2405; J2765; J2920